=== PATIENT | male | born 1955 | race Caucasian/White ===

== ENCOUNTER 2017-10-04 08:14 | Day surgery (SDC) | payer BC ==
[~2017-10-04 08:14] MED LIST: Lactated Ringers 1,000 ML IV SCH; Lidocaine 1%/Sod Bicarbonate in NS 8.4% 1 ML Syringe IV PRN; Sodium Chloride 0.9% 10 ML Syringe FLUSH PRN
--- NOTE | 2017-10-04 08:46 | PCM.PREANE ---
Preanesthetic Assessment - Anesthesia/Transfusion/Family Hx Anesthesia History: Prior Anesthesia Without Reaction Family History of Anesthesia Reaction: No Transfusion History: Prior Transfusion Without Reaction - Review of Systems General: No Symptoms Pulmonary: No Symptoms Cardiovascular: No Symptoms Gastrointestinal: No Symptoms Neurological: Numbness (left hand at night) Other: Reports: Easy Bleeding, Easy Bruising - Physical Assessment NPO Status Date: 10/02/17 NPO Status Time: 00:00 Pulse: 68 O2 Sat by Pulse Oximetry: 95 Respiratory Rate: 16 Blood Pressure: 138/76 Temperature: 36.6 C Height: 1.73 m Weight: 99.337 kg ASA Class: 3 Mental Status: Alert & Oriented x3 Dentition: Reports: Bridge (top) Thyro-Mental Finger Breadths: 3 Mouth Opening Finger Breadths: 3 ROM/Head Extension: Full Lungs: Clear to Auscultation, Normal Respiratory Effort Cardiovascular: Regular Rate, Regular Rhythm, No Murmurs - Allergies Allergies/Adverse Reactions: Allergies Allergy/AdvReac Type Severity Reaction Status Date / Time atorvastatin [From Lipitor] Allergy Cannot Verified 10/01/17 10:51 Remember pravastatin Allergy Cannot Verified 10/01/17 10:51 Remember rosuvastatin [From Crestor] Allergy Cannot Verified 10/01/17 10:51 Remember - Blood Blood Available: No Product(s) Available: None - Anesthesia Plan Pre-Op Medication Ordered: Beta Anibal Beta Anibal: Metoprolol Med Last Dose Date: 10/04/17 Med Last Dose Time: 00:00 - Acknowledgements Anesthesia Type Planned: MAC Pt an Appropriate Candidate for the Planned Anesthesia: Yes Alternatives and Risks of Anesthesia Discussed w Pt/Guardian: Yes Pt/Guardian Understands and Agrees with Anesthesia Plan: Yes PreAnesthesia Questionnaire HEENT History: Reports: Impaired Vision Cardiovascular History: Reports: CAD, High Cholesterol, Hypertension, [place], Other (See Below) Other Cardiovascular History: heart valve replacement, artherosclerotic heart disease, aortic valve stenosis, palpitations, peripheral artery disease Respiratory History: Reports: None Gastrointestinal History: Reports: Other (See Below) Other Gastrointestinal History: heartburn, reflux Genitourinary History: Reports: None 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 Musculoskeletal History: Reports: Arthritis Neurological History: Reports: Other (See Below) Other Neuro History: paresthesias Psychiatric History: Reports: None Endocrine/Metabolic History: Reports: Other (See Below) Other Endocrine/Metabolic History: hyperglycemia Hematologic History: Reports: None Immunologic History: Reports: None Oncologic (Cancer) History: Reports: None Dermatologic History: Reports: None - Past Surgical History Head Surgeries/Procedures: Reports: None Cardiovascular Surgical History: Reports: Coronary Artery Bypass, Other (See Below) Other Cardiovascular Surgeries/Procedures: bovine heart valve replacement, CABG x4, stents, sternotomy redo Respiratory Surgical History: Reports: None GI Surgical History: Reports: Colonoscopy Female Surgical History: Reports: None Male Surgical History: Reports: None Endocrine Surgical History: Reports: None Neurological Surgical History: Reports: None Musculoskeletal Surgical History: Reports: None Oncologic Surgical History: Reports: None Dermatological Surgical History: Reports: None - SUBSTANCE USE Smoking Status *Q: Former Smoker Tobacco Use Within Last Twelve Months: No Second Hand Smoke Exposure: No Days Per Week of Alcohol Use: 0 Number of Drinks Per Day: 0 Total Drinks Per Week: 0 Recreational Drug Use History: No - HOME MEDS Home Medications: Home Meds Aspirin 81 mg PO DAILY 10/01/17 [History] Ca Carbonate/Vitamin D3/Vit K [Calcium + D Soft Chewable Tab] 1 tab PO DAILY [History] Clopidogrel Bisulfate [Clopidogrel] 75 mg PO DAILY 10/01/17 [History] Fish Oil/[place]-3 Fatty Acids [Fish Oil 1,000 MG] 2 gm PO DAILY 10/01/17 [History ] Folic Acid [Folic Acid] 1 mg PO DAILY 10/01/17 [History] Garlic 1,000 mg PO DAILY 10/01/17 [History] Gluc 2KCl/Chondr/[place] Hy/Hy Ac [Glucosamine & Chondroitin Cap] 1 cap PO DAILY [History] Lisinopril [Lisinopril] 2.5 mg PO DAILY 10/01/17 [History] Metoprolol Tartrate [Metoprolol Tartrate] 50 mg PO BID 10/01/17 [History] Nitroglycerin [Nitrostat] 0.4 mg SL Q5M PRN 10/01/17 [History] Pantoprazole Sodium [Protonix] 40 mg PO DAILY 10/01/17 [History] Simvastatin [Zocor] 20 mg PO DAILY 10/01/17 [History] diphenhydrAMINE [Benadryl] 25 mg PO DAILY 10/01/17 [History] - CURRENT (IN HOUSE) MEDS Current Meds: Current Medications Lactated Ringer's (Ringers, Lactated) 1,000 mls @ 125 mls/hr IV ASDIRECTED IRA Stop: 10/04/17 23:00 Lidocaine/Sodium Bicarbonate (Buffered Lidocaine 1% In Ns 8.4%) 0.25 ml IV ONETIME PRN PRN Reason: Prior to IV Start Stop: 10/04/17 18:00 Sodium Chloride (Saline Flush) 10 ml FLUSH ASDIRECTED PRN PRN Reason: Keep Vein Open Stop: 10/04/17 18:00
[2017-10-04] MEDS ORDERED: Metoprolol Tartrate 5 MG/5 ML SDV ONE (09:11)
[2017-10-04] MEDS ORDERED: Propofol 200 MG/20 ML SDV ONE ×3 (09:35→10:52)
[2017-10-04] MEDS ORDERED: Lidocaine 1% 4 ML ONE (09:36)
[2017-10-04] MEDS ORDERED: fentaNYL 100 MCG/2 ML SDV ONE (09:36)
[2017-10-04] MEDS ORDERED: Ondansetron 4 MG/2 ML SDV IVPUSH PRN (10:33)
--- NOTE | 2017-10-04 11:03 | PCM.OPNOTE ---
- General Post-Op/Procedure Note Date of Surgery/Procedure: 10/04/17 Operative Procedure(s): colonosocopy to cecum with polypectomy and EGD with BX Pre Op Diagnosis: GERD and screening colonosocopy family hx of colon cancer Post-Op Diagnosis: Same Anesthesia Technique: MAC Primary Surgeon: Camden Arnett EBL in mLs: 0 Complications: None Condition: Good
--- NOTE | 2017-10-04 11:09 | PCM48HPAN ---
Post Anesthesia Note - EVALUATION WITHIN 48HRS OF ANESTHETIC Vital Signs in Normal Range: Yes Patient Participated in Evaluation: Yes Respiratory Function Stable: Yes Airway Patent: Yes Cardiovascular Function Stable: Yes Hydration Status Stable: Yes Pain Control Satisfactory: Yes Nausea and Vomiting Control Satisfactory: Yes Mental Status Recovered: Yes
--- NOTE | 2017-10-05 11:34 | OR ---
DATE OF OPERATION: 10/04/2017 SURGEON: Camden Arnett MD PREOPERATIVE DIAGNOSIS: Screening colonoscopy, family history. POSTOPERATIVE DIAGNOSIS: Screening colonoscopy OPERATION PERFORMED: Colonoscopy to cecum with removal of polyp at 40 cm of sigmoid colon. FINDINGS: Colonoscopy to the ileocecal valve with limited view of the cecum. ANESTHESIA: Done under IV sedation. DESCRIPTION OF PROCEDURE: The patient was taken to the endoscopy room, had been connected to the monitoring equipment, given IV sedation for upper GI endoscopy. The IV sedation was continued for colonoscopy. He was placed in left lateral position. Perianal area showed some external hemorrhoids. Rectal exam showed good sphincter tone. A video Olympus colonoscope was then introduced into the rectum and threaded up without problem to the ileocecal valve. I was unable to advance further into the cecum. A portion of the cecum was seen. Prep was excellent. [place] cleansing score grade A and the scope was slowly withdrawn showing the cecum, ascending colon, transverse colon, descending colon, sigmoid colon, and rectum. Our lesion had appeared to be a polyp or a hyperplastic polyp, uncertain, was identified, this was lassoed with cautery snare, it was located at 40 cm in the sigmoid colon, removed with cautery snare, retrieved, and sent to pathology. I did not see any angiodysplasias, large tumor masses, ulcerations, diverticulum. Some mild internal hemorrhoids were noted. The patient tolerated the procedure and sent to recovery room in a stable condition. He will be followed up in the clinic. ESTIMATED BLOOD LOSS: MMODAL /[id number]
--- NOTE | 2017-10-05 11:34 | OR ---
DATE OF OPERATION: 10/04/2017 SURGEON: Camden Arnett MD PREOPERATIVE DIAGNOSIS: Gastroesophageal reflux unresponsive to proton pump inhibitors. POSTOPERATIVE DIAGNOSIS: Gastroesophageal reflux unresponsive to proton pump inhibitors. OPERATION PERFORMED: Esophagogastroduodenoscopy with biopsy. FINDINGS: Some erythema and edema in the duodenal bulb. Antrum, body and fundus were unremarkable. Around the cardia, showed some edema. This area was also biopsied. The GE junction showed a small sliding hiatal hernia with GE junction located at 38 cm with some irregularity and swelling there. This was also biopsied. The rest of the esophagus and second portion of the duodenum were normal. ANESTHESIA: Done under IV sedation. DESCRIPTION OF PROCEDURE: The patient was taken to the endoscopy room, placed in a supine position, connected to monitoring equipment, and given IV sedation. A bite block was inserted and placed on the left side. The video Olympus gastroscope was placed in the posterior oropharynx, under direct vision, threaded past the cricopharyngeus, down the esophagus, and into the stomach. The stomach was insufflated, and the scope passed through the pylorus to the second portion of the duodenum. Second portion of the duodenum was unremarkable, but the duodenal bulb showed what appeared to be duodenitis, and this was biopsied. The scope was withdrawn to the antrum and pyloric channel, which were unremarkable. Body was viewed as normal. The fundus was seen and was unremarkable. Around the cardia, there was some edema and this was biopsied. The scope was withdrawn to the GE junction, which then again showed swelling and edema, and this was biopsied at the GE junction. Rest of the esophagus was viewed as the scope was withdrawn was normal. The patient tolerated the procedure. Specimen sent to pathology in a labeled container. IV sedation was continued for colonoscopy. ESTIMATED BLOOD LOSS: MMODAL /[id number]
== END 2017-10-04 11:33 | disposition home or self-care (01) ==
LOC: JD.SDS 08:14
PROVIDERS: ATTEND Surgery
DX: Z12.11 Encounter for screening for malignant neoplasm of colon (principal); K63.5 Polyp of colon; K20.9 Esophagitis, unspecified; K29.50 Unspecified chronic gastritis without bleeding; K44.9 Diaphragmatic hernia without obstruction or gangrene; K64.8 Other hemorrhoids; I10 Essential (primary) hypertension; K21.9 Gastro-esophageal reflux disease without esophagitis; I73.9 Peripheral vascular disease, unspecified; Z88.8 Allergy status to other drugs, medicaments and biological substances; Z80.0 Family history of malignant neoplasm of digestive organs; I25.10 Atherosclerotic heart disease of native coronary artery without angina pectoris; Z95.5 Presence of coronary angioplasty implant and graft; Z87.891 Personal history of nicotine dependence; Z95.2 Presence of prosthetic heart valve; Z79.82 Long term (current) use of aspirin; Z79.899 Other long term (current) drug therapy
CPT/HCPCS: 43239; 45385; J3010; J7120; 00813; J2704; J3490

== ENCOUNTER 2019-12-11 09:43 | Inpatient (IN) | payer MEDICARE, BC, OTHER ==
[2019-12-11] MEDS ORDERED: Sodium Chloride 0.9% 10 ML Syringe FLUSH PRN (09:58)
--- NOTE | 2019-12-11 10:22 | EDM.PDOC ---
ED HPI GENERAL MEDICAL PROBLEM - General Chief Complaint: Respiratory Problem Stated Complaint: COVID +/SOB Time Seen by Provider: 12/11/19 09:50 Source of Information: Reports: Patient, Family, Provider (Dr Tolliver), RN Notes Reviewed - History of Present Illness INITIAL COMMENTS - FREE TEXT/NARRATIVE: 64 year old male that first became ill over 9 days ago with "cold sx. He started becoming more ill about 12 to 14 days ago. He started becoming more ill about 10 days ago, November 30, was seen at [facility], found to have probable lingular pnemonia, sent home on zithromax. Than last week he started having more severe cough, fever, chills, soaking night sweats. She went to [facility] today because of not getting better, found to have low sats of 79 to 80 % at the clinic. Transferred here for concern of covid pneumonia with associated hypoxia. He states he has lost 16 to 18 lbs in the last 12 days. He has hx of CABG about 16 year ago and than repeat open heart surgery about 6 yrs ago and "had aortic valve replacement" at that time. He has chest pain with coughing. He has not felt severely short of breath. Upper Chest Pain Score (Numeric/FACES): 3 - Related Data Allergies Allergy/AdvReac Type Severity Reaction Status Date / Time atorvastatin [From Lipitor] Allergy Cannot Verified 12/11/19 09:52 Remember pravastatin Allergy Cannot Verified 12/11/19 09:52 Remember rosuvastatin [From Crestor] Allergy Cannot Verified 12/11/19 09:52 Remember Home Meds: Home Meds Aspirin 81 mg PO DAILY 10/01/17 [History] Calcium Carb/Vitamin D3/Vit K1 [Calcium + D Soft Chewable Tab] 1 tab PO DAILY [History] Clopidogrel Bisulfate [Clopidogrel] 75 mg PO DAILY 10/01/17 [History] Fish Oil/[place]-3 Fatty Acids [Fish Oil 1,000 MG] 2 gm PO DAILY 10/01/17 [History ] Folic Acid 1 mg PO DAILY 10/01/17 [History] Garlic 1,000 mg PO DAILY 10/01/17 [History] Glucosam/Chondr/Collagn/Hyalur [Glucosamine & Chondroitin Cap] 1 cap PO DAILY [History] Lisinopril 2.5 mg PO DAILY 10/01/17 [History] Pantoprazole Sodium [Protonix] 40 mg PO DAILY 10/01/17 [History] Simvastatin [Zocor] 20 mg PO DAILY 10/01/17 [History] diphenhydrAMINE [Benadryl] 25 mg PO DAILY 10/01/17 [History] Ezetimibe 10 mg PO DAILY 12/11/19 [History] Past Medical History HEENT History: Reports: Impaired Vision Cardiovascular History: Reports: CAD, High Cholesterol, Hypertension, [place], Other (See Below) Other Cardiovascular History: heart valve replacement, artherosclerotic heart disease, aortic valve stenosis, palpitations, peripheral artery disease Respiratory History: Reports: None Gastrointestinal History: Reports: Other (See Below) Other Gastrointestinal History: heartburn, reflux Genitourinary History: Reports: None 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 Musculoskeletal History: Reports: Arthritis Neurological History: Reports: Other (See Below) Other Neuro History: paresthesias Psychiatric History: Reports: None Endocrine/Metabolic History: Reports: Other (See Below) Other Endocrine/Metabolic History: hyperglycemia Hematologic History: Reports: None Immunologic History: Reports: None Oncologic (Cancer) History: Reports: None Dermatologic History: Reports: None - Past Surgical History Head Surgeries/Procedures: Reports: None Cardiovascular Surgical History: Reports: Coronary Artery Bypass, Other (See Below) Other Cardiovascular Surgeries/Procedures: bovine heart valve replacement, CABG x4, stents, sternotomy redo Respiratory Surgical History: Reports: None GI Surgical History: Reports: Colonoscopy Female Surgical History: Reports: None Male Surgical History: Reports: None Endocrine Surgical History: Reports: None Neurological Surgical History: Reports: None Musculoskeletal Surgical History: Reports: None Oncologic Surgical History: Reports: None Dermatological Surgical History: Reports: None Social & Family History - Caffeine Use Caffeine Use: Reports: Coffee ED ROS GENERAL - Review of Systems Review Of Systems: See Below Constitutional: Reports: Fever, Chills HEENT: Reports: Rhinitis (mild), Throat Pain (mild) Respiratory: Reports: Shortness of Breath, Cough, Sputum. Denies: Wheezing Cardiovascular: Reports: Chest Pain (with coughing) GI/Abdominal: Reports: Diarrhea, Decreased Appetite. Denies: Abdominal Pain Musculoskeletal: Reports: No Symptoms Skin: Reports: No Symptoms Neurological: Reports: Dizziness, Weakness (generalized) ED EXAM, GENERAL - Physical Exam Exam: See Below General Appearance: Alert, No Apparent Distress (at time of my exam on oxygen) Eye Exam: Bilateral Eye: PERRL Throat/Mouth: Normal Inspection Head: Atraumatic Neck: Supple Respiratory/Chest: No Respiratory Distress, Lungs Clear, Normal Breath Sounds, Rhonchi (mild bilat ronchi), Other (coarse BS bilat) Cardiovascular: Regular Rate, Rhythm GI/Abdominal: Soft, Non-Tender Extremities: Normal Inspection, Normal Range of Motion. No: Leg Pain, Redness Neurological: Alert, Oriented, No Motor/Sensory Deficits Skin Exam: Warm, Dry, Normal Color EKG INTERPRETATION EKG Date: 12/11/19 Rhythm: NSR P-Wave: Present QRS: Other (q waves V1 and AVL) ST-T: Other (mild nonspecific changes) Course - Vital Signs Last Recorded V/S: Last Vital Signs Temp 101.3 F H 12/11/19 12:42 Pulse 86 12/11/19 09:53 Resp 28 H 12/11/19 09:53 BP 132/65 12/11/19 09:53 Pulse Ox 86 L 12/11/19 09:53 - Orders/Labs/Meds Orders: Active Orders 24 hr Category Date Time Status Admission Status [Patient Status] [ADT] Routine ADT 12/11/19 11:49 Active EKG 12 Lead [EKG Documentation Completion] [RC] STAT Care 12/11/19 09:57 Active Peripheral IV Care [RC] . DIRECTED Care 12/11/19 09:58 Active CULTURE BLOOD [BC] Stat Lab 12/11/19 10:25 Received Sodium Chloride 0.9% [Saline Flush] Med 12/11/19 09:58 Active 10 ml FLUSH ASDIRECTED PRN Peripheral IV Insertion Adult [OM.PC] Stat Oth 12/11/19 09:58 Ordered Medication Orders Acetaminophen (Tylenol) 650 mg PO Q4H PRN PRN Reason: Pain (Mild 1-3)/fever Albuterol (Proventil Hfa) 0 gm INH Q4H PRN PRN Reason: SOB/Wheezing Sodium Chloride (Normal Saline) 1,000 mls @ 75 mls/hr IV ASDIRECTED IRA Sodium Chloride (Saline Flush) 10 ml FLUSH ASDIRECTED PRN PRN Reason: Keep Vein Open Last Admin: 12/11/19 10:35 Dose: 10 ml Labs: Laboratory Tests 12/11/19 12/11/19 12/11/19 Range/Units 10:25 10:25 10:25 WBC 7.00 (4.23-9.07) K/mm3 RBC 3.90 L (4.63-6.08) M/mm3 Hgb 12.0 L (13.7-17.5) gm/dl Hct 36.2 L (40.1-51.0) % MCV 92.8 H (79.0-92.2) fl MCH 30.8 (25.7-32.2) pg MCHC 33.1 (32.2-35.5) g/dl RDW Std Deviation 43.4 (35.1-43.9) fL Plt Count 186 (163-337) K/mm3 MPV 9.9 (9.4-12.3) fl Neut % (Auto) 88.8 H (34.0-67.9) % Lymph % (Auto) 6.7 L (21.8-53.1) % [place] % (Auto) 3.7 L (5.3-12.2) % Eos % (Auto) 0.1 L (0.8-7.0) Baso % (Auto) 0.1 (0.1-1.2) % Neut # (Auto) 6.21 H (1.78-5.38) K/mm3 Lymph # (Auto) 0.47 L (1.32-3.57) K/mm3 [place] # (Auto) 0.26 L (0.30-0.82) K/mm3 Eos # (Auto) 0.01 L (0.04-0.54) K/mm3 Baso # (Auto) 0.01 (0.01-0.08) K/mm3 Manual Slide Review Abnormal smear Sodium 134 L (136-145) mEq/L Potassium 4.5 (3.5-5.1) mEq/L Chloride 99 (98-107) mEq/L Carbon Dioxide 23 (21-32) mEq/L Anion Gap 16.5 H (5-15) BUN 14 (7-18) mg/dL Creatinine 1.0 (0.7-1.3) mg/dL Est Cr Clr Drug Dosing 73.65 mL/min Estimated GFR (MDRD) > 60 (>60) mL/min BUN/Creatinine Ratio 14.0 (14-18) Glucose 119 H (80-115) mg/dL Lactic Acid (0.4-2.0) mmol/L Calcium 8.5 (8.5-10.1) mg/dL Ferritin (26-388) ng/ml Total Bilirubin 0.8 (0.2-1.0) mg/dL AST 50 H (15-37) U/L ALT 27 (16-63) U/L Alkaline Phosphatase 53 (46-116) U/L Lactate Dehydrogenase (85-227) U/L C-Reactive Protein 10.3 H* (<1.0) mg/dL Total Protein 7.4 (6.4-8.2) g/dl Albumin 3.2 L (3.4-5.0) g/dl Globulin 4.2 gm/dL Albumin/Globulin Ratio 0.8 L (1-2) 12/11/19 12/11/19 12/11/19 Range/Units 10:25 10:25 10:25 WBC (4.23-9.07) K/mm3 RBC (4.63-6.08) M/mm3 Hgb (13.7-17.5) gm/dl Hct (40.1-51.0) % MCV (79.0-92.2) fl MCH (25.7-32.2) pg MCHC (32.2-35.5) g/dl RDW Std Deviation (35.1-43.9) fL Plt Count (163-337) K/mm3 MPV (9.4-12.3) fl Neut % (Auto) (34.0-67.9) % Lymph % (Auto) (21.8-53.1) % [place] % (Auto) (5.3-12.2) % Eos % (Auto) (0.8-7.0) Baso % (Auto) (0.1-1.2) % Neut # (Auto) (1.78-5.38) K/mm3 Lymph # (Auto) (1.32-3.57) K/mm3 [place] # (Auto) (0.30-0.82) K/mm3 Eos # (Auto) (0.04-0.54) K/mm3 Baso # (Auto) (0.01-0.08) K/mm3 Manual Slide Review Sodium (136-145) mEq/L Potassium (3.5-5.1) mEq/L Chloride (98-107) mEq/L Carbon Dioxide (21-32) mEq/L Anion Gap (5-15) BUN (7-18) mg/dL Creatinine (0.7-1.3) mg/dL Est Cr Clr Drug Dosing mL/min Estimated GFR (MDRD) (>60) mL/min BUN/Creatinine Ratio (14-18) Glucose (80-115) mg/dL Lactic Acid 1.8 (0.4-2.0) mmol/L Calcium (8.5-10.1) mg/dL Ferritin 2719 H (26-388) ng/ml Total Bilirubin (0.2-1.0) mg/dL AST (15-37) U/L ALT (16-63) U/L Alkaline Phosphatase (46-116) U/L Lactate Dehydrogenase 796 H (85-227) U/L C-Reactive Protein (<1.0) mg/dL Total Protein (6.4-8.2) g/dl Albumin (3.4-5.0) g/dl Globulin gm/dL Albumin/Globulin Ratio (1-2) Meds: Medications Generic Name Dose Route Start Last Admin Trade Name Freq PRN Reason Stop Dose Admin Acetaminophen 650 mg 12/11/19 12:42 Tylenol PO Q4H PRN Pain (Mild 1-3)/fever Albuterol 0 gm 12/11/19 12:44 Proventil Hfa INH Q4H PRN SOB/Wheezing Sodium Chloride 1,000 mls @ 75 mls/hr 12/11/19 12:45 Normal Saline IV ASDIRECTED IRA Sodium Chloride 10 ml 12/11/19 09:58 12/11/19 10:35 Saline Flush FLUSH 10 ml ASDIRECTED PRN Administration Keep Vein Open Discontinued Medications Generic Name Dose Route Start Last Admin Trade Name Freq PRN Reason Stop Dose Admin Acetaminophen 975 mg 12/11/19 10:29 12/11/19 10:35 Tylenol PO 12/11/19 10:30 975 mg NOW ONE Administration - Re-Assessments/Exams Free Text/Narrative Re-Assessment/Exam: 12/11/19 13:[address] 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 His labs with elevated CRP, ferritin, LDH, normal WBC with lymphopenia, bilat infiltrates on CXR are quite classic for what has been reported for patients with Covid pneumonia. His sats are running 93 to 94 on 3 liters NC. He was swabbed at [facility] just before coming over. He and his want to be admitted here in n. He will be admitted for further treatment, primarily oxygenation and watch carefully for decompensation. Departure - Departure Time of Disposition: 13:07 Disposition: Home, Self-Care 01 Condition: Fair Clinical Impression: Pneumonia due to 2019 novel coronavirus, Hypoxia - Discharge Information Sepsis Event Note - Evaluation Sepsis Screening Result: Possible Sepsis Risk - Focused Exam Vital Signs: Vital Signs Temp Temp Pulse Resp BP Pulse Ox 12/11/19 10:35 101.3 F H 12/11/19 10:26 101.3 F H 12/11/19 09:53 99.4 F 86 28 H 132/65 86 L Date Exam was Performed: 12/11/19 Time Exam was Performed: 12:51 ED Communication - Discussed Case With (1) Discussed Case With (1): Admitting Provider (Dr Araiza, decision to admit at about 11:40) - My Orders Last 24 Hours: My Active Orders 12/11/19 09:57 EKG 12 Lead [EKG Documentation Completion] [RC] STAT 12/11/19 09:58 Peripheral IV Care [RC] . DIRECTED Sodium Chloride 0.9% [Saline Flush] 10 ml FLUSH ASDIRECTED PRN Peripheral IV Insertion Adult [OM.PC] Stat 12/11/19 10:25 CULTURE BLOOD [BC] Stat 12/11/19 11:49 Admission Status [Patient Status] [ADT] Routine - Assessment/Plan Last 24 Hours: My Active Orders 12/11/19 09:57 EKG 12 Lead [EKG Documentation Completion] [RC] STAT 12/11/19 09:58 Peripheral IV Care [RC] . DIRECTED Sodium Chloride 0.9% [Saline Flush] 10 ml FLUSH ASDIRECTED PRN Peripheral IV Insertion Adult [OM.PC] Stat 12/11/19 10:25 CULTURE BLOOD [BC] Stat 12/11/19 11:49 Admission Status [Patient Status] [ADT] Routine
[2019-12-11] MEDS ORDERED: Acetaminophen 325 MG Tab PO ONE (10:29)
--- NOTE | 2019-12-11 10:56 | CR ---
Chest: Portable view of the chest was obtained. Comparison: Prior chest CT of 05/12/12. Patchy areas of increased density are noted throughout both sides of the chest. Heart is enlarged. Prior sternotomy is noted. Impression: 1. Increased density within both sides of the chest. Some of this could represent pulmonary vascular congestion but multifocal pneumonia is also suspected which could be either bacterial or viral in etiology. Diagnostic code #3 This report was dictated in MDT
--- NOTE | 2019-12-11 11:49 | PCM.HP.2 ---
H&P History of Present Illness - General Date of Service: 12/11/19 Source of Information: Patient, Old Records, Provider, RN, RN Notes Reviewed History Limitations: Reports: No Limitations - History of Present Illness Initial Comments - Free Text/Narative: Niko Bauman is a 64-year-old male patient who presented to ED at the advice of his primary care provider. He states that between 12 to 14 days prior he developed cold-like symptoms and on November 30 was seen at the [facility] with probable lingular pneumonia. He was started on azithromycin and sent home. Last week he began to have more fever, chills, cough, and night sweats. He went to the clinic was found to have oxygen saturations of 79 to 80%. He is also had diarrhea, although he states that this started when he started taking his antibiotic. He states he is lost 16 to 18 pounds in the last 12 days. In the ED he was noted to be febrile with a temp of 101.3, pulse of 86, respirations of 28, blood pressure 132/65. Pulse ox was 86%. EKG is obtained and shows a sinus rhythm with Q waves in V1 and aVL. Chest x-ray is obtained interpreted by Dr. Macias as "1 increased density within both sides of the chest. Some of this could represent pulmonary vascular congestion but multifocal pneumonia is also suspected which could be either bacterial or viral in etiology." Labs were obtained with a normal white count of 7.0. Hemoglobin is 12. Hematocrit 36.2. Platelets are 186. Neutrophils are elevated at 88.8% . Sodium is low at 134. Potassium 4.5. Carbon oxide 23. Gap is high at 16.5. BUN is 14, creatinine 1.0, GFR is greater than 60. Glucose is 119. Calcium is 8.5. AST is 50, ALT is 27, alkaline phosphatase is 53. CRP is elevated at 10.3. Protein is 7.4. Albumin is 3.2. Lactic acid is 1.8. Ferritin is very high at 2719, LDH is very high at 796. He is given Tylenol for fever. COVID test was performed at [facility] prior to coming to the ED. He carries a history of CAD, HLD, hypertension, ME, aortic bovine valve replacement, palpitations, peripheral artery disease, heartburn, arthritis, hyperglycemia, CABG x1, cardiac stenting x4. He is a full code. His PCP is Dr. Tolliver. He subsequently admitted for management of his failed outpatient treatment pneumonia suspected COVID infection. Upper Chest Pain Score (Numeric/FACES): 3 - Related Data Allergies/Adverse Reactions: Allergies Allergy/AdvReac Type Severity Reaction Status Date / Time atorvastatin [From Lipitor] Allergy Cannot Verified 12/11/19 09:52 Remember pravastatin Allergy Cannot Verified 12/11/19 09:52 Remember rosuvastatin [From Crestor] Allergy Cannot Verified 12/11/19 09:52 Remember Home Medications: Home Meds Aspirin 81 mg PO DAILY 10/01/17 [History] Calcium Carb/Vitamin D3/Vit K1 [Calcium + D Soft Chewable Tab] 1 tab PO DAILY [History] Clopidogrel Bisulfate [Clopidogrel] 75 mg PO DAILY 10/01/17 [History] Fish Oil/Edmond-3 Fatty Acids [Fish Oil 1,000 MG] 2 gm PO DAILY 10/01/17 [History ] Folic Acid 1 mg PO DAILY 10/01/17 [History] Garlic 1,000 mg PO DAILY 10/01/17 [History] Glucosam/Chondr/Collagn/Hyalur [Glucosamine & Chondroitin Cap] 1 cap PO DAILY [History] Lisinopril 2.5 mg PO DAILY 10/01/17 [History] Pantoprazole Sodium [Protonix] 40 mg PO DAILY 10/01/17 [History] Simvastatin [Zocor] 20 mg PO DAILY 10/01/17 [History] diphenhydrAMINE [Benadryl] 25 mg PO DAILY 10/01/17 [History] Ezetimibe 10 mg PO DAILY 12/11/19 [History] Past Medical History HEENT History: Reports: Impaired Vision Cardiovascular History: Reports: CAD, High Cholesterol, Hypertension, ME, Other (See Below) Other Cardiovascular History: heart valve replacement, artherosclerotic heart disease, aortic valve stenosis, palpitations, peripheral artery disease Respiratory History: Reports: None Gastrointestinal History: Reports: Other (See Below) Other Gastrointestinal History: heartburn, reflux Genitourinary History: Reports: None ELECTRICIAN CHIEF History: Reports: None Musculoskeletal History: Reports: Arthritis Neurological History: Reports: Other (See Below) Other Neuro History: paresthesias Psychiatric History: Reports: None Endocrine/Metabolic History: Reports: Other (See Below) Other Endocrine/Metabolic History: hyperglycemia Hematologic History: Reports: None Immunologic History: Reports: None Oncologic (Cancer) History: Reports: None Dermatologic History: Reports: None - Past Surgical History Head Surgeries/Procedures: Reports: None Cardiovascular Surgical History: Reports: Coronary Artery Bypass, Other (See Below) Other Cardiovascular Surgeries/Procedures: bovine heart valve replacement, CABG x4, stents, sternotomy redo Respiratory Surgical History: Reports: None GI Surgical History: Reports: Colonoscopy Female Surgical History: Reports: None Male Surgical History: Reports: None Endocrine Surgical History: Reports: None Neurological Surgical History: Reports: None Musculoskeletal Surgical History: Reports: None Oncologic Surgical History: Reports: None Dermatological Surgical History: Reports: None Social & Family History - Tobacco Use Smoking Status *Q: Former Smoker Used Tobacco, but Quit: Yes Month/Year Tobacco Last Used: 20 years ago - Caffeine Use Caffeine Use: Reports: Coffee - Recreational Drug Use Recreational Drug Use: No H&P Review of Systems - Review of Systems: Review Of Systems: See Below General: Reports: Fever, Chills, Malaise, Weakness, Fatigue, Decreased Appetite , Weight Loss (2/2 diarrhea ) HEENT: Reports: No Symptoms. Denies: Headaches, Sore Throat Pulmonary: Reports: Shortness of Breath, Pleuritic Chest Pain, Cough, Sputum. Denies: Wheezing Cardiovascular: Reports: Dyspnea on Exertion, Lightheadedness. Denies: Chest Pain, Palpitations Gastrointestinal: Reports: Diarrhea. Denies: Abdominal Pain, Black Stool, Bloody Stool, Constipation, Nausea, Vomiting Genitourinary: Reports: No Symptoms. Denies: Pain Musculoskeletal: Reports: Muscle Stiffness Skin: Reports: No Symptoms. Denies: Cyanosis Psychiatric: Reports: No Symptoms. Denies: Confusion Neurological: Reports: Weakness Hematologic/Lymphatic: Reports: No Symptoms. Denies: Anemia Immunologic: Reports: No Symptoms Exam - Exam Exam: See Below - Vital Signs Vital Signs: Last Vital Signs Temp 101.3 F H 12/11/19 10:35 Pulse 86 12/11/19 09:53 Resp 28 H 12/11/19 09:53 BP 132/65 12/11/19 09:53 Pulse Ox 86 L 12/11/19 09:53 Weight: 216 lb - Exam Quality Assessment: Supplemental Oxygen, DVT Prophylaxis General: Alert, Oriented, Cooperative, Mild Distress HEENT: Conjunctiva Clear, Nares Patent Neck: Supple, Trachea Midline Lungs: Decreased Breath Sounds, Crackles (R>L), Rhonchi. No: Normal Respiratory Effort (Tachypnea ), Wheezing Cardiovascular: Regular Rhythm, Tachycardia, Other (PVCs) GI/Abdominal Exam: Normal Bowel Sounds, Soft, Non-Tender, No Distention (Male) Exam: Deferred Rectal (Males) Exam: Deferred Back Exam: Normal Inspection, Full Range of Motion Extremities: Normal Inspection, Normal Range of Motion, Non-Tender, No Pedal Edema, Normal Capillary Refill Peripheral Pulses: 4+: Radial (L), Radial (R), Dorsalis Pedis (L), Dorsalis Pedis (R) Skin: Warm, Intact, Moist Neurological: Cranial Nerves Intact (Grossly ) Psychiatric: Alert, Anxious - Patient Data Lab Results Last 24 hrs: Laboratory Results - last 24 hr 12/11/19 12/11/19 12/11/19 Range/Units 10:25 10:25 10:25 WBC 7.00 (4.23-9.07) K/mm3 RBC 3.90 L (4.63-6.08) M/mm3 Hgb 12.0 L (13.7-17.5) gm/dl Hct 36.2 L (40.1-51.0) % MCV 92.8 H (79.0-92.2) fl MCH 30.8 (25.7-32.2) pg MCHC 33.1 (32.2-35.5) g/dl RDW Std Deviation 43.4 (35.1-43.9) fL Plt Count 186 (163-337) K/mm3 MPV 9.9 (9.4-12.3) fl Neut % (Auto) 88.8 H (34.0-67.9) % Lymph % (Auto) 6.7 L (21.8-53.1) % [place] % (Auto) 3.7 L (5.3-12.2) % Eos % (Auto) 0.1 L (0.8-7.0) Baso % (Auto) 0.1 (0.1-1.2) % Neut # (Auto) 6.21 H (1.78-5.38) K/mm3 Lymph # (Auto) 0.47 L (1.32-3.57) K/mm3 [place] # (Auto) 0.26 L (0.30-0.82) K/mm3 Eos # (Auto) 0.01 L (0.04-0.54) K/mm3 Baso # (Auto) 0.01 (0.01-0.08) K/mm3 Manual Slide Review Abnormal smear Sodium 134 L (136-145) mEq/L Potassium 4.5 (3.5-5.1) mEq/L Chloride 99 (98-107) mEq/L Carbon Dioxide 23 (21-32) mEq/L Anion Gap 16.5 H (5-15) BUN 14 (7-18) mg/dL Creatinine 1.0 (0.7-1.3) mg/dL Est Cr Clr Drug Dosing 73.65 mL/min Estimated GFR (MDRD) > 60 (>60) mL/min BUN/Creatinine Ratio 14.0 (14-18) Glucose 119 H (80-115) mg/dL Lactic Acid (0.4-2.0) mmol/L Calcium 8.5 (8.5-10.1) mg/dL Ferritin (26-388) ng/ml Total Bilirubin 0.8 (0.2-1.0) mg/dL AST 50 H (15-37) U/L ALT 27 (16-63) U/L Alkaline Phosphatase 53 (46-116) U/L Lactate Dehydrogenase (85-227) U/L C-Reactive Protein 10.3 H* (<1.0) mg/dL Total Protein 7.4 (6.4-8.2) g/dl Albumin 3.2 L (3.4-5.0) g/dl Globulin 4.2 gm/dL Albumin/Globulin Ratio 0.8 L (1-2) 12/11/19 12/11/19 12/11/19 Range/Units 10:25 10:25 10:25 WBC (4.23-9.07) K/mm3 RBC (4.63-6.08) M/mm3 Hgb (13.7-17.5) gm/dl Hct (40.1-51.0) % MCV (79.0-92.2) fl MCH (25.7-32.2) pg MCHC (32.2-35.5) g/dl RDW Std Deviation (35.1-43.9) fL Plt Count (163-337) K/mm3 MPV (9.4-12.3) fl Neut % (Auto) (34.0-67.9) % Lymph % (Auto) (21.8-53.1) % [place] % (Auto) (5.3-12.2) % Eos % (Auto) (0.8-7.0) Baso % (Auto) (0.1-1.2) % Neut # (Auto) (1.78-5.38) K/mm3 Lymph # (Auto) (1.32-3.57) K/mm3 [place] # (Auto) (0.30-0.82) K/mm3 Eos # (Auto) (0.04-0.54) K/mm3 Baso # (Auto) (0.01-0.08) K/mm3 Manual Slide Review Sodium (136-145) mEq/L Potassium (3.5-5.1) mEq/L Chloride (98-107) mEq/L Carbon Dioxide (21-32) mEq/L Anion Gap (5-15) BUN (7-18) mg/dL Creatinine (0.7-1.3) mg/dL Est Cr Clr Drug Dosing mL/min Estimated GFR (MDRD) (>60) mL/min BUN/Creatinine Ratio (14-18) Glucose (80-115) mg/dL Lactic Acid 1.8 (0.4-2.0) mmol/L Calcium (8.5-10.1) mg/dL Ferritin 2719 H (26-388) ng/ml Total Bilirubin (0.2-1.0) mg/dL AST (15-37) U/L ALT (16-63) U/L Alkaline Phosphatase (46-116) U/L Lactate Dehydrogenase 796 H (85-227) U/L C-Reactive Protein (<1.0) mg/dL Total Protein (6.4-8.2) g/dl Albumin (3.4-5.0) g/dl Globulin gm/dL Albumin/Globulin Ratio (1-2) Result Diagrams: 12/11/19 10:25 12/11/19 10:25 Sepsis Event Note - Evaluation Sepsis Screening Result: Possible Sepsis Risk - Focused Exam Vital Signs: Vital Signs Temp Temp Pulse Resp BP Pulse Ox 12/11/19 10:35 101.3 F H 12/11/19 10:26 101.3 F H 12/11/19 09:53 99.4 F 86 28 H 132/65 86 L Date Exam was Performed: 12/11/19 Time Exam was Performed: 18:57 - Problem List (1) Acute respiratory distress SNOMED Code(s): 070758788 ICD Code: R06.03 - ACUTE RESPIRATORY DISTRESS Status: Acute Priority: High Current Visit: Yes (2) Intubation of airway performed without difficulty SNOMED Code(s): 285718938 ICD Code: Z78.9 - OTHER SPECIFIED HEALTH STATUS Status: Acute Priority: High Current Visit: Yes (3) S/P CABG x 1 SNOMED Code(s): 389687580, 253211067, 922292119 ICD Code: Z95.1 - PRESENCE OF AORTOCORONARY BYPASS GRAFT Status: Chronic Priority: Medium Current Visit: Yes (4) H/O heart artery stent SNOMED Code(s): 018104693, 656015430 ICD Code: Z95.5 - PRESENCE OF CORONARY ANGIOPLASTY IMPLANT AND GRAFT Status : Chronic Priority: Medium Current Visit: Yes (5) Hypoxia SNOMED Code(s): 693154851 ICD Code: R09.02 - HYPOXEMIA Status: Acute Priority: High Current Visit : Yes (6) Pneumonia due to 2019 novel coronavirus SNOMED Code(s): 125682247 ICD Code: J12.89 - OTHER VIRAL PNEUMONIA; B97.29 - OTH CORONAVIRUS THE CAUSE OF DISEASES CLASSD ELSWHR Status: Suspected Priority: High Current Visit: Yes (7) CAD (coronary artery disease) SNOMED Code(s): 34715963 ICD Code: I25.10 - ATHSCL HEART DISEASE OF [place] CORONARY ARTERY W/O ANG PCTRS Status: Chronic Priority: Medium Current Visit: No Qualifiers: Coronary Disease-Associated Artery/Lesion type: bypass graft [place] vs. transplanted heart: [place] heart Associated angina: angina presence unspecified Qualified Code(s): I25.810 - Atherosclerosis of coronary artery bypass graft(s) without angina pectoris (8) HLD (hyperlipidemia) SNOMED Code(s): 72257526 ICD Code: E78.5 - HYPERLIPIDEMIA, UNSPECIFIED Status: Chronic Priority: Low Current Visit: No Qualifiers: Hyperlipidemia type: unspecified Qualified Code(s): E78.5 - Hyperlipidemia , unspecified (9) HTN (hypertension) SNOMED Code(s): 58174709 ICD Code: I10 - ESSENTIAL (PRIMARY) HYPERTENSION Status: Chronic Priority : Low Current Visit: No Qualifiers: Hypertension type: unspecified Qualified Code(s): I10 - Essential (primary ) hypertension (10) History of ME (myocardial infarction) SNOMED Code(s): 654889215 ICD Code: I25.2 - OLD MYOCARDIAL INFARCTION Status: Chronic Priority: Low Current Visit: No (11) H/O aortic valve repair SNOMED Code(s): 187228256018377 ICD Code: Z98.890 - OTHER SPECIFIED POSTPROCEDURAL STATES; Z86.79 - PERSONAL HISTORY OF OTHER DISEASES OF THE CIRCULATORY SYSTEM Status: Chronic Priority : Medium Current Visit: No (12) PAD (peripheral artery disease) SNOMED Code(s): 752387273 ICD Code: I73.9 - PERIPHERAL VASCULAR DISEASE, UNSPECIFIED Status: Chronic Priority: Medium Current Visit: No (13) GERD (gastroesophageal reflux disease) SNOMED Code(s): 144458372 ICD Code: K21.9 - GASTRO-ESOPHAGEAL REFLUX DISEASE WITHOUT ESOPHAGITIS Status: Chronic Priority: Medium Current Visit: No Qualifiers: Esophagitis presence: esophagitis presence not specified Qualified Code(s) : K21.9 - Gastro-esophageal reflux disease without esophagitis (14) Arthritis SNOMED Code(s): 5495872 ICD Code: M19.90 - UNSPECIFIED OSTEOARTHRITIS, UNSPECIFIED SITE Status: Chronic Priority: Low Current Visit: No (15) Bilateral pulmonary infiltrates on chest x-ray SNOMED Code(s): 934403778, 682345697 ICD Code: R91.8 - OTHER NONSPECIFIC ABNORMAL FINDING OF LUNG FIELD Status: Acute Priority: High Current Visit: Yes (16) Diarrhea SNOMED Code(s): 46998253 ICD Code: R19.7 - DIARRHEA, UNSPECIFIED Status: Acute Priority: High Current Visit: Yes Qualifiers: Diarrhea type: unspecified type Qualified Code(s): R19.7 - Diarrhea, unspecified (17) Viral pneumonia SNOMED Code(s): 96129178 ICD Code: J12.9 - VIRAL PNEUMONIA, UNSPECIFIED Status: Suspected Priority : High Current Visit: Yes Problem List Initiated/Reviewed/Updated: Yes Orders Last 24hrs: Active Orders 24 hr Category Date Time Status EKG 12 Lead [EKG Documentation Completion] [RC] STAT Care 12/11/19 09:57 Active Peripheral IV Care [RC] . DIRECTED Care 12/11/19 09:58 Active CULTURE BLOOD [BC] Stat Lab 12/11/19 10:25 Received Sodium Chloride 0.9% [Saline Flush] Med 12/11/19 09:58 Active 10 ml FLUSH ASDIRECTED PRN Peripheral IV Insertion Adult [OM.PC] Stat Oth 12/11/19 09:58 Ordered Medication Orders Sodium Chloride (Saline Flush) 10 ml FLUSH ASDIRECTED PRN PRN Reason: Keep Vein Open Last Admin: 12/11/19 10:35 Dose: 10 ml Assessment/Plan Comment:: I/P: Acute: Multifocal PNA/Suspected COVID-19 infection -Reports symptoms for past 12-14 days -Seen at walk-in and started on azithromycin. -Reports cough, fever, chills, night sweats, diarrhea, weight loss -Sepsis screen: Unknown bacterial infection, Normal WBC, Tmax 101.3, HR WNL, RR 28, Lactic acid 1.8 -Started on Zosyn and azithromycin -Intubated -This is likely viral and not related to a bacterial infection -Saturations at clinic 70-80% -Temp 101.3 in ED -WBC 7.0, Platelets 186, CRP 10.3, [id number], LDH 796, Lactic acid 1.8 -ABG shows respiratory acidosis -Oxygen saturations in mid to upper 80's in ICU -Intubated 2/2 worsening reparatory status -Judicious use of IV fluids -Airborne isolation, Negative pressure room -COVID test obtained at [facility] on 12/11/19- obtain results once available -Repeat CXRs as needed -RT consult -Recommend prone position 17-18 hrs per day. Does not need to be continuous -NG tube in place -Vent management -Fentanyl/Versed/Vecuronium for sedation. -Central line placed Chronic: CAD HLD Hypertension [place] Aortic bovine valve replacement Palpitations Peripheral artery disease Heartburn Arthritis Hyperglycemia CABG x1 Cardiac stenting x4 Plan: Admit to ICU Review home medications Other orders as indicated above AM Labs as ordered Code status: Full code - confirmed with patient DVT prophylaxis: Lovenox PCP: Dr. Tolliver - Mortality Measure Prognosis:: Poor
[2019-12-11] MEDS ORDERED: Acetaminophen 325 MG Tab PO PRN (12:42)
[2019-12-11] MEDS ORDERED: Albuterol 6.7 GM Inhaler INH PRN (12:44)
[2019-12-11] MEDS ORDERED: Piperacillin/Tazobactam 4.5 GM in Sodium Chloride 0.9% 100 ML IV ONE ×2 (13:00→14:00)
[2019-12-11] MEDS ORDERED: Azithromycin 250 MG Tab PO SCH (13:00)
[2019-12-11] MEDS ORDERED: Levofloxacin/Dextrose 5%-Water 750 MG in Premix Bag 1 BAG IV SCH (13:30)
[2019-12-11] MEDS ORDERED: Etomidate 2 MG/ML 20 ML SDV IVPUSH ONE (15:00)
[2019-12-11] MEDS ORDERED: Succinylcholine 200 MG/10 ML MDV ONE (15:00)
[2019-12-11] MEDS ORDERED: Midazolam 1 MG/ML 5 ML SDV ONE (15:00)
[2019-12-11] MEDS ORDERED: Midazolam 50 MG in Sodium Chloride 0.9% 40 ML IV SCH (16:00)
[2019-12-11] MEDS: fentaNYL 2,500 MCG in Sodium Chloride 0.9% 200 ML IV SCH (16:00)
[2019-12-11] MEDS ORDERED: Midazolam 1 MG/ML 5 ML SDV IVPUSH ONE ×2 (16:34→16:36)
--- NOTE | 2019-12-11 16:34 | CR ---
Chest: Portable view of the chest was obtained. Comparison: Prior chest x-ray performed earlier on the same day (10:19 AM) Diffuse increased density throughout both sides of the chest. Tip of endotracheal tube is not well seen but felt to lie between the clavicles and jomar in satisfactory position. Nasogastric tube is seen with tip lying within the stomach. Heart is slightly enlarged. Tortuous thoracic aorta is seen. Prior sternotomy is noted. Impression: 1. Diffuse increased density throughout the chest which appears fairly stable from previous exam. 2. Satisfactory position of endotracheal tube and nasogastric tube are felt to be present. 3. Mild cardiomegaly. Diagnostic code #3 This report was dictated in MDT
--- NOTE | 2019-12-11 17:15 | PCM.PRNOTE ---
- Free Text/Narrative Note: Procedure: Endotracheal intubation Indication: Respiratory failure due to ARDS Following sedation with midazolam and etomidate, and paralysis with succinylcholine, the patient was intubated with an 8.0 OETT to 23 cm at the incisors using a Mac 3 blade. Vocal cords visualized, and tip of ETT seen passing the cord. Positive CO2 colorimetric change. Good bilateral breath sounds post-intubation. An OG tub was then placed per the patient's RN. Post- procedure PCXR ordered. Post-intubation portable chest x-ray reviewed. The tip of the ET tube is approximately 2 cm above the jomar. The OG tube is seen in the stomach via the esophagus. The cardiac silhouette is within normal limits. There are bilateral hazy infiltrates consistent with a viral pneumonia/developing ARDS. Pulmonary edema cannot be ruled out. No pleural effusions seen on this AP view. No pneumothorax. Formal read per the Radiologist pending.
[2019-12-11] MEDS: Vecuronium 10 MG in Sodium Chloride 0.9% 100 ML IV SCH ×2 (18:00→20:49)
[2019-12-11] MEDS ORDERED: Hydroxychloroquine 200 MG Tab NGTUBE ONE (18:15)
--- NOTE | 2019-12-11 18:42 | CR ---
Addendum: Left-sided central line is seen. Tip lies at the junction of the brachiocephalic and superior vena cava. --- Addendum1 above dictated on [12/11/2019 19:11] by [Bud Macias, Parth Riggs] --- --- Addendum1 above signed on [12/11/2019 19:11] by [Bud Macias Hilton J.] --- --- Original report below dictated on [12/11/2019 18:40] by [Bud Macias, Parth Riggs] --- --- Original report below signed on [12/11/2019 18:40] by [Bud Macias, Parth Riggs] --- Chest: Portable view of the chest was obtained. Comparison: Prior chest x-ray performed on the same day (4:01 PM). Diffuse parenchymal densities are seen. Heart is enlarged. Tortuous thoracic aorta is seen. Tip of endotracheal tube lies at the lower level of the clavicles. Nasogastric tube courses off the inferior edge of the film into the stomach. Prior sternotomy is noted. Bony structures are grossly intact. Impression: 1. Tip of endotracheal tube at the lower level the clavicles. Nasogastric tube within the stomach. 2. Diffuse parenchymal densities are seen which are stable from prior chest x-ray. 3. Cardiomegaly and tortuous thoracic aorta. Diagnostic code #3 Study was dictated in MDT --- Addendum1 signed ---
--- NOTE | 2019-12-11 18:42 | PCM.PRNOTE ---
- Free Text/Narrative Note: Procedure: Left subclavian triple-lumen central catheter Indication: IV access A sterile field with chlorhexidine and sterile drapes was prepared. Local anesthesia with 1% lidocaine without epinephrine infiltrated. A left subclavian 3-lumen catheter was then placed to 18 cm via the Seldinger technique. Good draw and flush all 3 lumens. The catheter was sutured into place, then dressed with a bio Derm Tegaderm by tx. The patient tolerated the procedure well. Post-procedure portable chest x-ray ordered. Post-procedure portable chest x-ray reviewed. The left subclavian catheter appears to be in good position with the tip in the superior vena cava. No left or right-sided pneumothorax. The cardiac silhouette is at the upper limits of normal. There are bilateral hazy infiltrates, consistent with viral pneumonia versus developing ARDS. Pulmonary vascular congestion cannot be ruled out. No pleural effusions seen on this AP view. Formal read per the Radiologist pending. The ICU will be notified that the catheter is ready for use.
[2019-12-11] MEDS: Sodium Chloride 0.9% 1,000 ML IV SCH (19:30)
[2019-12-11] MEDS ORDERED: Piperacillin/Tazobactam 4.5 GM in Sodium Chloride 0.9% 100 ML IV SCH (21:00)
[2019-12-12] MEDS: Vecuronium 10 MG in Sodium Chloride 0.9% 100 ML IV SCH ×4 (00:10→12:58)
[2019-12-12] MEDS: Piperacillin/Tazobactam 4.5 GM in Sodium Chloride 0.9% 100 ML IV SCH ×3 (00:11→15:42)
[2019-12-12] MEDS: Sodium Chloride 0.9% 1,000 ML IV SCH (04:48)
[2019-12-12] MEDS: fentaNYL 2,500 MCG in Sodium Chloride 0.9% 200 ML IV SCH (07:47)
[2019-12-12] MEDS: Enoxaparin 40 MG/0.4 ML Syringe SUBCUT SCH (08:47)
[2019-12-12] MEDS: Pantoprazole 40 MG Vial IVPUSH SCH (08:48)
[2019-12-12] MEDS ORDERED: Pantoprazole 40 MG Tab.CR PO SCH (09:00)
[2019-12-12] MEDS ORDERED: Aspirin 81 MG Tab.Chew PO SCH (09:00)
[2019-12-12] MEDS ORDERED: Clopidogrel 75 MG Tab PO SCH (09:00)
[2019-12-12] MEDS ORDERED: Folic Acid 1 MG Tab PO SCH (09:00)
[2019-12-12] MEDS ORDERED: Lactated Ringers 1,000 ML IV SCH (10:30)
[2019-12-12] MEDS: Acetaminophen 650 MG Supp RECTAL PRN (11:13)
[2019-12-12] MEDS ORDERED: Sodium Chloride 0.9% 500 ML IV SCH (11:45)
--- NOTE | 2019-12-12 12:18 | PCM.PN ---
- General Info Date of Service: 12/12/19 Subjective Update: INTERVAL HISTORY Vital Signs: BP trend: 109-118/54-68 HR trend: 93-106x' Tmax: 101.3 SatO2: >86% Drips: Fentanyl at 15 Versed at 15 Vecuronium at 30 NS at 75 Mechanical Ventilation: Intubation day: 12/11/2019 Mode: AC VC Vt: 450 FiO2: 100 PEEP: 10 RR: 12 Infectious Disease: Antibiotics: Zosyn day 2 Cultures: MRSA swab negative - Patient Data Vitals - Most Recent: Last Vital Signs Temp 101.2 F H 12/12/19 11:13 Pulse 85 12/11/19 20:00 Resp 13 12/12/19 08:00 BP 116/61 12/12/19 08:00 Pulse Ox 94 L 12/12/19 12:00 Weight - Most Recent: 100.834 kg - Exam Quality Assessment: Supplemental Oxygen, Central Line/PICC, Urine Catheter, DVT Prophylaxis. No: Skin Breakdown General: Sedated Neck: Trachea Midline Lungs: Decreased Breath Sounds, Crackles, Rales Cardiovascular: Regular Rate. No: Murmurs, Gallops, Rubs GI/Abdominal Exam: Distended Extremities: Pedal Edema, Slow Capillary Refill Sepsis Event Note - Evaluation Sepsis Screening Result: No Definite Risk - Focused Exam Vital Signs: Vital Signs Temp Temp Resp BP BP Pulse Ox Pulse Ox 12/12/19 12:00 94 L 12/12/19 11:13 101.2 F H 12/12/19 10:49 97 12/12/19 08:16 94 L 12/12/19 08:00 97.8 F 13 116/61 95 12/12/19 05:49 95 12/12/19 05:46 19 12/12/19 05:45 19 118/62 12/12/19 05:44 18 95 12/12/19 05:31 22 H 95 12/12/19 05:30 19 118/61 95 12/12/19 05:29 20 95 12/12/19 05:16 18 95 12/12/19 05:15 18 114/60 95 12/12/19 05:14 21 H 95 12/12/19 05:01 21 H 12/12/19 05:00 24 H 117/61 12/12/19 04:59 25 H 12/12/19 04:46 18 94 L 12/12/19 04:45 16 118/61 95 12/12/19 04:44 16 94 L 12/12/19 04:31 16 96 12/12/19 04:30 16 114/57 L 96 12/12/19 04:29 16 96 12/12/19 04:16 17 95 12/12/19 04:15 20 112/59 L 95 12/12/19 04:14 24 H 96 12/12/19 04:01 17 97 12/12/19 04:00 99.1 F 16 114/58 L 114/57 L 97 12/12/19 03:59 16 97 12/12/19 03:46 16 97 12/12/19 03:45 17 114/58 L 97 12/12/19 03:44 16 97 12/12/19 03:31 16 97 12/12/19 03:30 17 114/58 L 97 12/12/19 03:29 17 97 12/12/19 03:16 17 97 12/12/19 03:15 17 115/57 L 97 12/12/19 03:13 17 97 12/12/19 03:01 17 97 12/12/19 03:00 17 113/57 L 97 12/12/19 02:59 17 97 12/12/19 02:46 18 97 12/12/19 02:45 16 111/57 L 97 12/12/19 02:44 18 97 12/12/19 02:31 18 97 12/12/19 02:30 18 110/58 L 97 12/12/19 02:29 18 97 12/12/19 02:16 18 97 12/12/19 02:15 18 113/59 L 97 12/12/19 02:14 18 97 12/12/19 02:01 18 97 12/12/19 02:00 18 112/55 L 97 12/12/19 01:59 18 97 97 12/12/19 01:46 19 96 12/12/19 01:45 19 115/56 L 96 12/12/19 01:44 19 96 12/12/19 01:31 19 114/58 L 95 12/12/19 01:30 19 95 12/12/19 01:24 93 L 12/12/19 01:16 19 115/60 95 12/12/19 01:15 19 95 12/12/19 01:01 20 119/60 95 12/12/19 01:00 19 95 12/12/19 00:46 20 121/58 L 95 12/12/19 00:45 20 95 12/12/19 00:31 20 119/54 L 94 L 12/12/19 00:30 20 93 L Date Exam was Performed: 12/12/19 Time Exam was Performed: 17:17 - Problem List & Annotations (1) Acute hypoxemic respiratory failure SNOMED Code(s): 469639517 Code(s): J96.01 - ACUTE RESPIRATORY FAILURE WITH HYPOXIA Status: Acute Current Visit: Yes (2) Acute respiratory distress SNOMED Code(s): 566967369 Code(s): R06.03 - ACUTE RESPIRATORY DISTRESS Status: Acute Priority: High Current Visit: Yes (3) Bilateral pulmonary infiltrates on chest x-ray SNOMED Code(s): 660143918, 371860681 Code(s): R91.8 - OTHER NONSPECIFIC ABNORMAL FINDING OF LUNG FIELD Status: Acute Priority: High Current Visit: Yes (4) Hypoxia SNOMED Code(s): 191009542 Code(s): R09.02 - HYPOXEMIA Status: Acute Priority: High Current Visit : Yes (5) S/P CABG x 1 SNOMED Code(s): 597693948, 286310994, 971487499 Code(s): Z95.1 - PRESENCE OF AORTOCORONARY BYPASS GRAFT Status: Chronic Priority: Medium Current Visit: Yes (6) CAD (coronary artery disease) SNOMED Code(s): 32143700 Code(s): I25.10 - ATHSCL HEART DISEASE OF [place] CORONARY ARTERY W/O ANG PCTRS Status: Chronic Priority: Medium Current Visit: No Qualifiers: Coronary Disease-Associated Artery/Lesion type: bypass graft [place] vs. transplanted heart: [place] heart Associated angina: angina presence unspecified Qualified Code(s): I25.810 - Atherosclerosis of coronary artery bypass graft(s) without angina pectoris (7) GERD (gastroesophageal reflux disease) SNOMED Code(s): 497612751 Code(s): K21.9 - GASTRO-ESOPHAGEAL REFLUX DISEASE WITHOUT ESOPHAGITIS Status: Chronic Priority: Medium Current Visit: No Qualifiers: Esophagitis presence: esophagitis presence not specified Qualified Code(s) : K21.9 - Gastro-esophageal reflux disease without esophagitis (8) H/O aortic valve repair SNOMED Code(s): 186345885897974 Code(s): Z98.890 - OTHER SPECIFIED POSTPROCEDURAL STATES; Z86.79 - PERSONAL HISTORY OF OTHER DISEASES OF THE CIRCULATORY SYSTEM Status: Chronic Priority : Medium Current Visit: No (9) PAD (peripheral artery disease) SNOMED Code(s): 442388563 Code(s): I73.9 - PERIPHERAL VASCULAR DISEASE, UNSPECIFIED Status: Chronic Priority: Medium Current Visit: No (10) Hypoalbuminemia SNOMED Code(s): 566747658 Code(s): E88.09 - OTH DISORDERS OF PLASMA-PROTEIN METABOLISM, NEC Status: Acute Current Visit: Yes (11) Obesity (BMI 30.0-34.9) SNOMED Code(s): 436002513938649 Code(s): E66.9 - OBESITY, UNSPECIFIED Status: Acute Current Visit: Yes (12) HLD (hyperlipidemia) SNOMED Code(s): 59283545 Code(s): E78.5 - HYPERLIPIDEMIA, UNSPECIFIED Status: Chronic Priority: Low Current Visit: No Qualifiers: Hyperlipidemia type: unspecified Qualified Code(s): E78.5 - Hyperlipidemia , unspecified (13) HTN (hypertension) SNOMED Code(s): 26095428 Code(s): I10 - ESSENTIAL (PRIMARY) HYPERTENSION Status: Chronic Priority : Low Current Visit: No Qualifiers: Hypertension type: unspecified Qualified Code(s): I10 - Essential (primary ) hypertension (14) Acute hypercapnic respiratory failure SNOMED Code(s): 143475683 Code(s): J96.02 - ACUTE RESPIRATORY FAILURE WITH HYPERCAPNIA Status: Acute Current Visit: Yes (15) COPD (chronic obstructive pulmonary disease) SNOMED Code(s): 37865301 Code(s): J44.9 - CHRONIC OBSTRUCTIVE PULMONARY DISEASE, UNSPECIFIED Status : Acute Current Visit: Yes (16) Suspected COVID-19 virus infection SNOMED Code(s): 417500240 Code(s): R68.89 - OTHER GENERAL SYMPTOMS AND SIGNS Status: Acute Current Visit: Yes (17) Sepsis SNOMED Code(s): 33970803 Code(s): A41.9 - SEPSIS, UNSPECIFIED ORGANISM Status: Acute Current Visit : Yes - Problem List Review Problem List Initiated/Reviewed/Updated: Yes - Plan Plan:: ASSESSMENT BY DAY DAY OF ADMISSION - URI symptoms compatible with COVID19 x 12-14 days - Septic 2/2 PNA with concern for COVID19 - Started on Zosyn and azithromycin - Intubated 2/2 worsening reparatory status - Airborne isolation, Negative pressure room - COVID test obtained at [facility] on 12/11/19 - Central line placed DAY 1 - PCO2 is 71 - Adjust vent setting as per ARDS protocol - Reculture fever spike PLAN BY SYSTEMS: Neurology: Minimize central acting medications as possible. Daily sedation vacation. Frequent neurologic exams by nursing staff. Continue sedation with Fentanyl and Versed for now and taper down as tolerated. Respiratory: Continue mechanical ventilation. Endotracheal tube care by RT. Scheduled nebulizations. Regular suctioning. Aspiration precautions. Daily SBT. Repeat CXR as needed. ABGs as needed to evaluate need for MV parameter adjustments. Cardiovascular: Sepsis protocol. IVF resuscitation. Continue vasopressors for now and wean off as tolerated for MAP goal >65 GI and Nutrition: Start enteral nutrition via OG tube. OG tube care. Monitor residuals and adjust tube feedings rate as tolerated. Scheduled free water flushes. Kidney and Electrolytes: Strict monitoring of intake, output and overall fluid balance. Maintain neutral as possible. Avoid nephrotoxic medications. Medications to be dosed according to renal function. Monitor electrolytes and replace as needed. Trend creatinine and BUN. Endocrine: Scheduled Accu-checks. Hypoglycemia protocol in place. Infectious Disease: Trend temperature. Panculture if febrile. Follow up on cultures from admission as well as COVID result Continue antibiotic regimen with Zosyn for now. Hematology and Coagulation: No active bleeding, no coagulopathy to correct, no need to transfuse blood products at the moment. Goal hemoglobin >8g Musculoskeletal and Skin: Bed turn rotation by nursing staff. Daily evaluation for pressure ulcers. PROPHYLAXIS: DVT- SCD's and Lovenox GI- Pantoprazole CODE STATUS: FULL CODE DISPOSITION: Patient will remain admitted in ICU for mechanical ventilation, pending COVID result.
--- NOTE | 2019-12-12 12:18 | PCM.PN ---
- General Info Date of Service: 12/12/19 - Patient Data Vitals - Most Recent: Last Vital Signs Temp 101.2 F H 12/12/19 11:13 Pulse 85 12/11/19 20:00 Resp 13 12/12/19 08:00 BP 116/61 12/12/19 08:00 Pulse Ox 94 L 12/12/19 12:00 Weight - Most Recent: 100.834 kg I&O - Last 24 Hours: Intake & Output 12/11/19 12/12/19 12/12/19 22:59 06:59 14:59 Intake Total 297 1472 471 Output Total 255 625 300 Balance 42 847 171 Lab Results Last 24 Hours: Laboratory Results - last 24 hr 12/11/19 12/11/19 12/11/19 Range/Units 13:40 16:26 17:30 WBC (4.23-9.07) K/mm3 RBC (4.63-6.08) M/mm3 Hgb (13.7-17.5) gm/dl Hct (40.1-51.0) % MCV (79.0-92.2) fl MCH (25.7-32.2) pg MCHC (32.2-35.5) g/dl RDW Std Deviation (35.1-43.9) fL Plt Count (163-337) K/mm3 MPV (9.4-12.3) fl Neut % (Auto) (34.0-67.9) % Lymph % (Auto) (21.8-53.1) % [place] % (Auto) (5.3-12.2) % Eos % (Auto) (0.8-7.0) Baso % (Auto) (0.1-1.2) % Neut # (Auto) (1.78-5.38) K/mm3 Lymph # (Auto) (1.32-3.57) K/mm3 [place] # (Auto) (0.30-0.82) K/mm3 Eos # (Auto) (0.04-0.54) K/mm3 Baso # (Auto) (0.01-0.08) K/mm3 Manual Slide Review Puncture Site Rt radial Rt radial ABG pH 7.49 H 7.36 (7.35-7.45) ABG pCO2 28.0 L 39.8 (35.0-45.0) mmHg ABG pO2 58.0 L 84.0 (80.0-100.0) mmHg ABG HCO3 21.2 L 22.1 (22.0-26.0) meq/L ABG O2 Saturation 94.4 L 94.4 L (96.0-97.0) % ABG Base Excess -0.8 -2.5 L (-2-2.0) Ton Test Positive Positive A-a Gradient 165 581 mmHg O2 Delivery Device Nasal cannula Ventilator Oxygen Flow Rate 4.0 FiO2 36.00 100.00 (21.00-100.00) % Tidal Volume 450.0 cc PEEP 10.0 cmH20 Pressure Support 0.0 cmH2O Sodium (136-145) mEq/L Potassium (3.5-5.1) mEq/L Chloride (98-107) mEq/L Carbon Dioxide (21-32) mEq/L Anion Gap (5-15) BUN (7-18) mg/dL Creatinine (0.7-1.3) mg/dL Est Cr Clr Drug Dosing mL/min Estimated GFR (MDRD) (>60) mL/min BUN/Creatinine Ratio (14-18) Glucose (80-115) mg/dL Calcium (8.5-10.1) mg/dL Phosphorus (2.6-4.7) mg/dL Magnesium (1.8-2.4) mg/dl Total Bilirubin (0.2-1.0) mg/dL AST (15-37) U/L ALT (16-63) U/L Alkaline Phosphatase (46-116) U/L Total Protein (6.4-8.2) g/dl Albumin (3.4-5.0) g/dl Globulin gm/dL Albumin/Globulin Ratio (1-2) MRSA (PCR) Negative 12/12/19 12/12/19 12/12/19 Range/Units 04:48 04:48 08:34 WBC 8.36 (4.23-9.07) K/mm3 RBC 3.68 L (4.63-6.08) M/mm3 Hgb 11.1 L (13.7-17.5) gm/dl Hct 35.8 L (40.1-51.0) % MCV 97.3 H D (79.0-92.2) fl MCH 30.2 (25.7-32.2) pg MCHC 31.0 L (32.2-35.5) g/dl RDW Std Deviation 47.7 H (35.1-43.9) fL Plt Count 204 (163-337) K/mm3 MPV 9.7 (9.4-12.3) fl Neut % (Auto) 86.3 H (34.0-67.9) % Lymph % (Auto) 8.9 L (21.8-53.1) % [place] % (Auto) 3.9 L (5.3-12.2) % Eos % (Auto) 0 L (0.8-7.0) Baso % (Auto) 0.2 (0.1-1.2) % Neut # (Auto) 7.21 H (1.78-5.38) K/mm3 Lymph # (Auto) 0.74 L (1.32-3.57) K/mm3 [place] # (Auto) 0.33 (0.30-0.82) K/mm3 Eos # (Auto) 0.00 L (0.04-0.54) K/mm3 Baso # (Auto) 0.02 (0.01-0.08) K/mm3 Manual Slide Review Abnormal smear Puncture Site Rt brachial ABG pH 7.22 L (7.35-7.45) ABG pCO2 71.1 H* (35.0-45.0) mmHg ABG pO2 95.0 (80.0-100.0) mmHg ABG HCO3 27.8 H (22.0-26.0) meq/L ABG O2 Saturation 95.6 L (96.0-97.0) % ABG Base Excess -0.9 (-2-2.0) Ton Test A-a Gradient 531 mmHg O2 Delivery Device Ventilator Oxygen Flow Rate FiO2 100.00 (21.00-100.00) % Tidal Volume 450.0 cc PEEP 10.0 cmH20 Pressure Support cmH2O Sodium 137 (136-145) mEq/L Potassium 4.6 (3.5-5.1) mEq/L Chloride 103 (98-107) mEq/L Carbon Dioxide 28 (21-32) mEq/L Anion Gap 10.6 (5-15) BUN 11 (7-18) mg/dL Creatinine 1.0 (0.7-1.3) mg/dL Est Cr Clr Drug Dosing 73.65 mL/min Estimated GFR (MDRD) > 60 (>60) mL/min BUN/Creatinine Ratio 11.0 L (14-18) Glucose 105 (80-115) mg/dL Calcium 7.6 L (8.5-10.1) mg/dL Phosphorus 2.8 (2.6-4.7) mg/dL Magnesium 2.0 (1.8-2.4) mg/dl Total Bilirubin 0.6 (0.2-1.0) mg/dL AST 51 H (15-37) U/L ALT 22 (16-63) U/L Alkaline Phosphatase 45 L (46-116) U/L Total Protein 6.6 (6.4-8.2) g/dl Albumin 2.6 L (3.4-5.0) g/dl Globulin 4.0 gm/dL Albumin/Globulin Ratio 0.7 L (1-2) MRSA (PCR) 12/12/19 Range/Units 11:09 WBC (4.23-9.07) K/mm3 RBC (4.63-6.08) M/mm3 Hgb (13.7-17.5) gm/dl Hct (40.1-51.0) % MCV (79.0-92.2) fl MCH (25.7-32.2) pg MCHC (32.2-35.5) g/dl RDW Std Deviation (35.1-43.9) fL Plt Count (163-337) K/mm3 MPV (9.4-12.3) fl Neut % (Auto) (34.0-67.9) % Lymph % (Auto) (21.8-53.1) % [place] % (Auto) (5.3-12.2) % Eos % (Auto) (0.8-7.0) Baso % (Auto) (0.1-1.2) % Neut # (Auto) (1.78-5.38) K/mm3 Lymph # (Auto) (1.32-3.57) K/mm3 [place] # (Auto) (0.30-0.82) K/mm3 Eos # (Auto) (0.04-0.54) K/mm3 Baso # (Auto) (0.01-0.08) K/mm3 Manual Slide Review Puncture Site Rt brachial ABG pH 7.27 L (7.35-7.45) ABG pCO2 60.8 H (35.0-45.0) mmHg ABG pO2 92.0 (80.0-100.0) mmHg ABG HCO3 26.7 H (22.0-26.0) meq/L ABG O2 Saturation 96.3 (96.0-97.0) % ABG Base Excess -0.9 (-2-2.0) Ton Test A-a Gradient 547 mmHg O2 Delivery Device Ventilator Oxygen Flow Rate FiO2 100.00 (21.00-100.00) % Tidal Volume 450.0 cc PEEP 10.0 cmH20 Pressure Support cmH2O Sodium (136-145) mEq/L Potassium (3.5-5.1) mEq/L Chloride (98-107) mEq/L Carbon Dioxide (21-32) mEq/L Anion Gap (5-15) BUN (7-18) mg/dL Creatinine (0.7-1.3) mg/dL Est Cr Clr Drug Dosing mL/min Estimated GFR (MDRD) (>60) mL/min BUN/Creatinine Ratio (14-18) Glucose (80-115) mg/dL Calcium (8.5-10.1) mg/dL Phosphorus (2.6-4.7) mg/dL Magnesium (1.8-2.4) mg/dl Total Bilirubin (0.2-1.0) mg/dL AST (15-37) U/L ALT (16-63) U/L Alkaline Phosphatase (46-116) U/L Total Protein (6.4-8.2) g/dl Albumin (3.4-5.0) g/dl Globulin gm/dL Albumin/Globulin Ratio (1-2) MRSA (PCR) Denis Results Last 24 Hours: Microbiology 12/11/19 10:25 Aerobic Blood Culture - Preliminary Blood NO GROWTH AFTER 1 DAY Anaerobic Blood Culture - Preliminary NO GROWTH AFTER 1 DAY Med Orders - Current: Current Medications Acetaminophen (Tylenol) 650 mg RECTAL Q6H PRN PRN Reason: Fever Last Admin: 12/12/19 11:13 Dose: 650 mg Albuterol (Proventil Hfa) 0 gm INH Q4H PRN PRN Reason: SOB/Wheezing Enoxaparin Sodium (Lovenox) 40 mg SUBCUT DAILY [facility] Last Admin: 12/12/19 08:47 Dose: 40 mg Piperacillin Sod/Tazobactam (Sod 4.5 gm/ Sodium Chloride) 100 mls @ 25 mls/hr IV Q8H [facility] Last Admin: 12/12/19 07:55 Dose: 25 mls/hr Fentanyl 2,500 mcg/ Sodium (Chloride) 250 mls @ 9.92 mls/hr IV TITRATE [facility]; Protocol Last Titration: 12/12/19 07:47 Dose: 1.51 mcg/kg/hr, 15 mls/hr Midazolam HCl 100 mg/ Sodium (Chloride) 100 mls @ 1 mls/hr IV ASDIRECTED [facility] Last Admin: 12/12/19 08:09 Dose: 15 mls/hr Vecuronium [place] 10 mg/ (Sodium Chloride) 100 mls @ 29.39 mls/hr IV TITRATE [facility]; Protocol Last Admin: 12/12/19 07:44 Dose: 0.5 mcg/kg/min, 29.39 mls/hr Lactated Ringer's (Ringers, Lactated) 1,000 mls @ 75 mls/hr IV ASDIRECTED [facility] Last Admin: 12/12/19 10:59 Dose: 75 mls/hr Sodium Chloride (Normal Saline) 500 mls @ 10 mls/hr IV ASDIRECTED [facility] Pantoprazole Sodium (Protonix Iv) 40 mg IVPUSH DAILY [facility] Last Admin: 12/12/19 08:48 Dose: 40 mg Sodium Chloride (Saline Flush) 10 ml FLUSH ASDIRECTED PRN PRN Reason: Keep Vein Open Last Admin: 12/11/19 10:35 Dose: 10 ml Discontinued Medications Acetaminophen (Tylenol) 975 mg PO NOW ONE Stop: 12/11/19 10:30 Last Admin: 12/11/19 10:35 Dose: 975 mg Acetaminophen (Tylenol) 650 mg PO Q4H PRN PRN Reason: Pain (Mild 1-3)/fever Aspirin (Aspirin) 81 mg PO DAILY [facility] Azithromycin (Zithromax) 500 mg PO DAILY [facility] Last Admin: 12/11/19 13:55 Dose: Not Given Clopidogrel Bisulfate (Plavix) 75 mg PO DAILY [facility] Folic Acid (Folic Acid) 1 mg PO DAILY [facility] Hydroxychloroquine Sulfate (Plaquenil) 400 mg NGTUBE ONETIME ONE Stop: 12/11/19 18:16 Last Admin: 12/11/19 18:37 Dose: Not Given Hydroxychloroquine Sulfate (Plaquenil) 200 mg PO DAILY [facility] Hydroxychloroquine Sulfate (Plaquenil) 200 mg NGTUBE DAILY [facility] Sodium Chloride (Normal Saline) 1,000 mls @ 75 mls/hr IV ASDIRECTED [facility] Last Admin: 12/12/19 04:48 Dose: 75 mls/hr Piperacillin Sod/Tazobactam (Sod 4.5 gm/ Sodium Chloride) 100 mls @ 200 mls/hr IV ONETIME ONE Stop: 12/11/19 13:29 Last Admin: 12/11/19 13:55 Dose: Not Given Piperacillin Sod/Tazobactam (Sod 4.5 gm/ Sodium Chloride) 100 mls @ 25 mls/hr IV Q8H [facility] Levofloxacin/Dextrose 750 mg/ (Premix) 150 mls @ 100 mls/hr IV Q24H [facility] Piperacillin Sod/Tazobactam (Sod 4.5 gm/ Sodium Chloride) 100 mls @ 200 mls/hr IV ONETIME ONE Stop: 12/11/19 14:29 Last Admin: 12/11/19 16:20 Dose: 200 mls/hr Midazolam HCl 50 mg/ Sodium (Chloride) 50 mls @ 1 mls/hr IV TITRATE [facility]; Protocol Stop: 12/11/19 23:00 Last Titration: 12/11/19 16:30 Dose: 15 mg/hr, 15 mls/hr Vecuronium [place] 10 mg/ (Sodium Chloride) 100 mls @ 59.54 mls/hr IV TITRATE [facility]; Protocol Last Admin: 12/12/19 03:28 Dose: 0.5 mcg/kg/min, 30 mls/hr Midazolam HCl (Versed 1 Mg/Ml) 10 mg IVPUSH ONETIME ONE Stop: 12/11/19 16:35 Last Admin: 12/11/19 18:36 Dose: Not Given Midazolam HCl (Versed 1 Mg/Ml) 5 mg IVPUSH ONETIME ONE Stop: 12/11/19 16:37 Last Admin: 12/11/19 18:36 Dose: Not Given Pantoprazole Sodium (Protonix) 40 mg PO DAILY [facility] Sepsis Event Note - Evaluation Sepsis Screening Result: No Definite Risk - Focused Exam Vital Signs: Vital Signs Temp Temp Resp BP BP Pulse Ox Pulse Ox 12/12/19 12:00 94 L 12/12/19 11:13 101.2 F H 12/12/19 10:49 97 12/12/19 08:16 94 L 12/12/19 08:00 97.8 F 13 116/61 95 12/12/19 05:49 95 12/12/19 05:46 19 95 12/12/19 05:45 19 118/62 95 12/12/19 05:44 18 95 12/12/19 05:31 22 H 95 12/12/19 05:30 19 118/61 95 12/12/19 05:29 20 95 12/12/19 05:16 18 95 12/12/19 05:15 18 114/60 95 12/12/19 05:14 21 H 95 12/12/19 05:01 21 H 95 12/12/19 05:00 24 H 117/61 95 12/12/19 04:59 25 H 95 12/12/19 04:46 18 94 L 12/12/19 04:45 16 118/61 95 12/12/19 04:44 16 94 L 12/12/19 04:31 16 96 12/12/19 04:30 16 114/57 L 96 12/12/19 04:29 16 96 12/12/19 04:16 17 95 12/12/19 04:15 20 112/59 L 95 12/12/19 04:14 24 H 96 12/12/19 04:01 17 97 12/12/19 04:00 99.1 F 16 114/58 L 114/57 L 97 12/12/19 03:59 16 97 12/12/19 03:46 16 97 12/12/19 03:45 17 114/58 L 97 12/12/19 03:44 16 97 12/12/19 03:31 16 97 12/12/19 03:30 17 114/58 L 97 12/12/19 03:29 17 97 12/12/19 03:16 17 97 12/12/19 03:15 17 115/57 L 97 12/12/19 03:13 17 97 12/12/19 03:01 17 97 12/12/19 03:00 17 113/57 L 97 12/12/19 02:59 17 97 12/12/19 02:46 18 97 12/12/19 02:45 16 111/57 L 97 12/12/19 02:44 18 97 12/12/19 02:31 18 97 12/12/19 02:30 18 110/58 L 97 12/12/19 02:29 18 97 12/12/19 02:16 18 97 12/12/19 02:15 18 113/59 L 97 12/12/19 02:14 18 97 12/12/19 02:01 18 97 12/12/19 02:00 18 112/55 L 97 12/12/19 01:59 18 97 97 12/12/19 01:46 19 96 12/12/19 01:45 19 115/56 L 96 12/12/19 01:44 19 96 12/12/19 01:31 19 114/58 L 95 12/12/19 01:30 19 95 12/12/19 01:24 93 L 12/12/19 01:16 19 115/60 95 12/12/19 01:15 19 95 12/12/19 01:01 20 119/60 95 12/12/19 01:00 19 95 12/12/19 00:46 20 121/58 L 95 12/12/19 00:45 20 95 12/12/19 00:31 20 119/54 L 94 L 12/12/19 00:30 20 93 L Date Exam was Performed: 12/12/19 Time Exam was Performed: 12:18 - My Orders Last 24 Hours: My Active Orders 12/12/19 10:16 PT Evaluation and Treatment [CONS] Routine 12/12/19 10:30 Lactated Ringers [Ringers, Lactated] 1,000 ml IV ASDIRECTED 12/12/19 11:29 CULTURE BLOOD [BC] Stat 12/12/19 11:36 Arterial Line Insertion [OM.PC] Stat 12/12/19 11:45 Sodium Chloride 0.9% [Normal Saline] 500 ml IV ASDIRECTED - Plan Plan:: I/P: Acute: Multifocal PNA/Suspected COVID-19 infection -Reports symptoms for past 12-14 days -Seen at walk-in and started on azithromycin. -Reports cough, fever, chills, night sweats, diarrhea, weight loss -Sepsis screen: Unknown bacterial infection, Normal WBC, Tmax 101.3, HR WNL, RR 28, Lactic acid 1.8 -Started on Zosyn and azithromycin -Intubated -This is likely viral and not related to a bacterial infection -Saturations at clinic 70-80% -Temp 101.3 in ED -WBC 7.0, Platelets 186, CRP 10.3, [id number], LDH 796, Lactic acid 1.8 -ABG shows respiratory acidosis -Oxygen saturations in mid to upper 80's in ICU -Intubated 2/2 worsening reparatory status -Judicious use of IV fluids -Airborne isolation, Negative pressure room -COVID test obtained at [place] on 12/11/19- obtain results once available -Repeat CXRs as needed -RT consult -Recommend prone position 17-18 hrs per day. Does not need to be continuous -NG tube in place -Vent management -Fentanyl/Versed/Vecuronium for sedation. -Central line placed Chronic: CAD HLD Hypertension RI Aortic bovine valve replacement Palpitations Peripheral artery disease Heartburn Arthritis Hyperglycemia CABG x1 Cardiac stenting x4 Plan: Admit to ICU Review home medications Other orders as indicated above AM Labs as ordered Code status: Full code - confirmed with patient DVT prophylaxis: Lovenox PCP: Dr. Tolliver
--- NOTE | 2019-12-12 12:24 | PCM.PRNOTE ---
- Free Text/Narrative Note: Arterial Line Placement Note Date: 12/12/2019 Time: 12:15 PM Indication: Hemodynamic monitoring and need for continuous O2 monitoring in highly infectious patient Attending: Tena Petersen MD A time-out was completed verifying correct patient, procedure, site, positioning , and special equipment if applicable. Allens test was performed to ensure adequate perfusion. The patients right wrist was prepped and draped in sterile fashion. 1% Lidocaine was used to anesthetize the area. A 20G Arrow arterial line was introduced into the radial artery. The catheter was threaded over the guide wire and the needle was removed with appropriate pulsatile blood return. The catheter was then sutured in place to the skin and a sterile dressing applied. Perfusion to the extremity distal to the point of catheter insertion was checked and found to be adequate. Estimated Blood Loss: 5mL The patient tolerated the procedure well and there were no complications.
[2019-12-12] MEDS ORDERED: Hydroxychloroquine 200 MG Tab PO SCH (18:15)
[2019-12-12] MEDS: HYDROXYCHLOROQUINE 25 MG/ML PO SCH (18:28)
[2019-12-12] MEDS: Lactated Ringers 1,000 ML IV SCH (21:35)
[2019-12-13] MEDS: Piperacillin/Tazobactam 4.5 GM in Sodium Chloride 0.9% 100 ML IV SCH ×3 (01:04→16:00)
[2019-12-13] MEDS: fentaNYL 2,500 MCG in Sodium Chloride 0.9% 200 ML IV SCH ×2 (01:35→14:27)
[2019-12-13] MEDS: Lactated Ringers 1,000 ML IV SCH ×3 (05:37→22:31)
[2019-12-13] MEDS: HYDROXYCHLOROQUINE 25 MG/ML PO SCH (05:39)
[2019-12-13] MEDS: Enoxaparin 40 MG/0.4 ML Syringe SUBCUT SCH (08:02)
[2019-12-13] MEDS: Pantoprazole 40 MG Vial IVPUSH SCH (08:03)
--- NOTE | 2019-12-13 15:34 | PCM.PN ---
- General Info Date of Service: 12/13/19 Subjective Update: INTERVAL HISTORY - COVID19 resulted positive Vital Signs: MAP trend: 63-89 HR trend: 80-108x' Tmax: 100.1 SatO2: >94% Drips: Fentanyl Versed Mechanical Ventilation: Intubation day: 12/11/2019 Mode: AC VC Vt: 450 FiO2: 50 PEEP: 10 RR: 16 Ppeak: 26 Vte: 9.1 Balance: Urine output: 780 NG tube output 100 Balance: + 889 Infectious Disease: Antibiotics: Zosyn day 3, Plaquenil day 2 Cultures: MRSA swab negative COVID19 POSITIVE - Patient Data Vitals - Most Recent: Last Vital Signs Temp 98.1 F 12/13/19 12:00 Pulse 85 12/11/19 20:00 Resp 17 12/13/19 12:00 BP 106/57 L 12/13/19 12:00 Pulse Ox 93 L 12/13/19 15:18 Weight - Most Recent: 99.926 kg - Exam Quality Assessment: Supplemental Oxygen, Central Line/PICC, Urine Catheter, DVT Prophylaxis General: Sedated HEENT: Pupils Equal, Pupils Reactive Lungs: Decreased Breath Sounds, Crackles Cardiovascular: Tachycardia. No: Murmurs, Gallops, Rubs GI/Abdominal Exam: Distended, Abnormal Bowel Sounds Extremities: Pedal Edema, Slow Capillary Refill Sepsis Event Note - Evaluation Sepsis Screening Result: No Definite Risk - Focused Exam Vital Signs: Vital Signs Temp Resp BP BP BP Pulse Ox Pulse Ox 12/13/19 15:18 93 L 12/13/19 13:18 95 12/13/19 12:00 98.1 F 17 106/57 L 96 12/13/19 11:53 98 12/13/19 09:39 99 12/13/19 07:40 88 L 12/13/19 07:33 98.6 F 17 102/47 L 93 L 12/13/19 06:16 13 95 12/13/19 06:15 17 95/58 L 88 L 12/13/19 06:14 24 H 89 L 12/13/19 06:01 18 91 L 12/13/19 06:00 20 107/56 L 91 L 93 L 12/13/19 05:59 18 91 L 12/13/19 05:46 15 95 12/13/19 05:45 17 101/58 L 93 L 12/13/19 05:44 18 93 L 12/13/19 05:31 19 94 L 12/13/19 05:30 15 102/54 L 93 L 12/13/19 05:29 15 93 L 12/13/19 05:16 18 94 L 12/13/19 05:15 16 97/54 L 95 12/13/19 05:14 14 95 12/13/19 05:01 14 92 L 12/13/19 05:00 19 102/59 L 92 L 12/13/19 04:59 18 92 L 12/13/19 04:46 18 93 L 12/13/19 04:45 14 107/59 L 93 L 12/13/19 04:44 18 93 L 12/13/19 04:31 18 92 L 12/13/19 04:30 19 110/56 L 91 L 12/13/19 04:29 15 91 L 12/13/19 04:16 22 H 88 L 12/13/19 04:15 21 H 108/67 88 L 12/13/19 04:14 14 88 L 12/13/19 04:01 19 92 L 12/13/19 04:00 99.3 F 12 109/65 109/65 106/48 L 92 L 12/13/19 03:59 15 93 L 12/13/19 03:46 15 90 L 12/13/19 03:45 11 L 110/66 90 L 12/13/19 03:44 21 H 91 L Date Exam was Performed: 12/13/19 Time Exam was Performed: 16:56 - Problem List & Annotations (1) COVID-19 virus detected SNOMED Code(s): 921084986 Code(s): U07.1 - COVID-19 Status: Acute Current Visit: Yes (2) Acute hypoxemic respiratory failure SNOMED Code(s): 534847383 Code(s): J96.01 - ACUTE RESPIRATORY FAILURE WITH HYPOXIA Status: Acute Current Visit: Yes (3) Acute respiratory distress SNOMED Code(s): 836388362 Code(s): R06.03 - ACUTE RESPIRATORY DISTRESS Status: Acute Priority: High Current Visit: Yes (4) Bilateral pulmonary infiltrates on chest x-ray SNOMED Code(s): 893005161, 650394490 Code(s): R91.8 - OTHER NONSPECIFIC ABNORMAL FINDING OF LUNG FIELD Status: Acute Priority: High Current Visit: Yes (5) Hypoxia SNOMED Code(s): 999823699 Code(s): R09.02 - HYPOXEMIA Status: Acute Priority: High Current Visit : Yes (6) S/P CABG x 1 SNOMED Code(s): 798975049, 070160164, 083772788 Code(s): Z95.1 - PRESENCE OF AORTOCORONARY BYPASS GRAFT Status: Chronic Priority: Medium Current Visit: Yes (7) CAD (coronary artery disease) SNOMED Code(s): 60045816 Code(s): I25.10 - ATHSCL HEART DISEASE OF [place] CORONARY ARTERY W/O ANG PCTRS Status: Chronic Priority: Medium Current Visit: No Qualifiers: Coronary Disease-Associated Artery/Lesion type: bypass graft [place] vs. transplanted heart: [place] heart Associated angina: angina presence unspecified Qualified Code(s): I25.810 - Atherosclerosis of coronary artery bypass graft(s) without angina pectoris (8) GERD (gastroesophageal reflux disease) SNOMED Code(s): 337246500 Code(s): K21.9 - GASTRO-ESOPHAGEAL REFLUX DISEASE WITHOUT ESOPHAGITIS Status: Chronic Priority: Medium Current Visit: No Qualifiers: Esophagitis presence: esophagitis presence not specified Qualified Code(s) : K21.9 - Gastro-esophageal reflux disease without esophagitis (9) H/O aortic valve repair SNOMED Code(s): 742508714282401 Code(s): Z98.890 - OTHER SPECIFIED POSTPROCEDURAL STATES; Z86.79 - PERSONAL HISTORY OF OTHER DISEASES OF THE CIRCULATORY SYSTEM Status: Chronic Priority : Medium Current Visit: No (10) PAD (peripheral artery disease) SNOMED Code(s): 129235664 Code(s): I73.9 - PERIPHERAL VASCULAR DISEASE, UNSPECIFIED Status: Chronic Priority: Medium Current Visit: No (11) Hypoalbuminemia SNOMED Code(s): 382146536 Code(s): E88.09 - OTH DISORDERS OF PLASMA-PROTEIN METABOLISM, NEC Status: Acute Current Visit: Yes (12) Obesity (BMI 30.0-34.9) SNOMED Code(s): 111619419227532 Code(s): E66.9 - OBESITY, UNSPECIFIED Status: Acute Current Visit: Yes (13) HLD (hyperlipidemia) SNOMED Code(s): 52424659 Code(s): E78.5 - HYPERLIPIDEMIA, UNSPECIFIED Status: Chronic Priority: Low Current Visit: No Qualifiers: Hyperlipidemia type: unspecified Qualified Code(s): E78.5 - Hyperlipidemia , unspecified (14) HTN (hypertension) SNOMED Code(s): 68872372 Code(s): I10 - ESSENTIAL (PRIMARY) HYPERTENSION Status: Chronic Priority : Low Current Visit: No Qualifiers: Hypertension type: unspecified Qualified Code(s): I10 - Essential (primary ) hypertension (15) Acute hypercapnic respiratory failure SNOMED Code(s): 153904259 Code(s): J96.02 - ACUTE RESPIRATORY FAILURE WITH HYPERCAPNIA Status: Acute Current Visit: Yes (16) COPD (chronic obstructive pulmonary disease) SNOMED Code(s): 05507536 Code(s): J44.9 - CHRONIC OBSTRUCTIVE PULMONARY DISEASE, UNSPECIFIED Status : Acute Current Visit: Yes (17) Suspected COVID-19 virus infection SNOMED Code(s): 150938593 Code(s): R68.89 - OTHER GENERAL SYMPTOMS AND SIGNS Status: Acute Current Visit: Yes (18) Sepsis SNOMED Code(s): 29682280 Code(s): A41.9 - SEPSIS, UNSPECIFIED ORGANISM Status: Acute Current Visit : Yes (19) ARDS (adult respiratory distress syndrome) SNOMED Code(s): 43139731, 60397739 Code(s): J80 - ACUTE RESPIRATORY DISTRESS SYNDROME Status: Acute Current Visit: Yes (20) Acute respiratory distress syndrome (ARDS) due to 2019 novel coronavirus SNOMED Code(s): 51717456 Code(s): U07.1 - COVID-19; J80 - ACUTE RESPIRATORY DISTRESS SYNDROME Status : Acute Current Visit: Yes - Problem List Review Problem List Initiated/Reviewed/Updated: Yes - Plan Plan:: ASSESSMENT BY DAY DAY OF ADMISSION - URI symptoms compatible with COVID19 x 12-14 days - Septic 2/2 PNA with concern for COVID19 - Started on Zosyn and azithromycin - Intubated 2/2 worsening reparatory status - Airborne isolation, Negative pressure room - COVID test obtained at [place] on 12/11/19 - Central line placed DAY 1 - PCO2 is 71 - Adjust vent setting as per ARDS protocol - Reculture fever spike DAY 2 - COVID-19 resulted positive - Patient started on Plaquenil PLAN BY SYSTEMS: Neurology: Minimize central acting medications as possible. Daily sedation vacation. Frequent neurologic exams by nursing staff. Continue sedation with Fentanyl and Versed for now and taper down as tolerated. Respiratory: Continue mechanical ventilation. Endotracheal tube care by RT. PRN nebulizations. Regular suctioning. Aspiration precautions. Daily SBT. Repeat CXR as needed. ABGs as needed to evaluate need for MV parameter adjustments. Maximum isolation precautions. Plaquenil and Zosyn Cardiovascular: Sepsis protocol. IVF resuscitation. Continue vasopressors for now and wean off as tolerated for MAP goal >65 GI and Nutrition: Continue enteral nutrition via OG tube with Osmolite 1.5 OG tube care. Monitor residuals and adjust tube feedings rate as tolerated. Scheduled free water flushes. Repeat LFTs in AM Kidney and Electrolytes: Strict monitoring of intake, output and overall fluid balance. Maintain as neutral as possible. Avoid nephrotoxic medications. Medications to be dosed according to renal function. Monitor electrolytes and replace as needed. Trend creatinine and BUN. Endocrine: Scheduled Accu-checks. Hypoglycemia protocol in place. Infectious Disease: Trend temperature. Panculture if febrile. Follow up on cultures Continue Plaquenil and Zosyn Procalcitonin every 48 hours Hematology and Coagulation: No active bleeding, no coagulopathy to correct, no need to transfuse blood products at the moment. Goal hemoglobin >8g Musculoskeletal and Skin: Bed turn rotation by nursing staff. Daily evaluation for pressure ulcers. PROPHYLAXIS: DVT- SCD's and Lovenox GI- Pantoprazole CODE STATUS: FULL CODE DISPOSITION: Patient will remain admitted in ICU for mechanical ventilation. Maximum isolation precautions
[2019-12-13] MEDS ORDERED: Hydroxychloroquine 200 MG Tab NGTUBE SCH (18:15)
[2019-12-13] MEDS ORDERED: Adenosine 6 MG/2 ML SDV ONE ×2 (19:26→19:33)
[2019-12-13] MEDS ORDERED: Adenosine 12 MG/4 ML SDV ONE ×2 (19:26→19:33)
[2019-12-13] MEDS ORDERED: Dextrose 5% in Water 250 ML ONE (20:40)
[2019-12-13] MEDS: propofoL 100 ML IV SCH (20:57)
[2019-12-13] MEDS: Norepinephrine 4 MG in Dextrose 5% in Water 246 ML IV SCH ×2 (21:00)
[2019-12-14] MEDS: Piperacillin/Tazobactam 4.5 GM in Sodium Chloride 0.9% 100 ML IV SCH ×3 (01:05→14:59)
[2019-12-14] MEDS: fentaNYL 2,500 MCG in Sodium Chloride 0.9% 200 ML IV SCH ×2 (04:19→16:54)
[2019-12-14] MEDS: Non-Formulary Medication 1 Each PO SCH (05:26)
[2019-12-14] MEDS: Lactated Ringers 1,000 ML IV SCH ×3 (06:37→20:23)
[2019-12-14] MEDS: propofoL 100 ML IV SCH ×2 (08:35→18:53)
[2019-12-14] MEDS: Pantoprazole 40 MG Vial IVPUSH SCH (08:37)
[2019-12-14] MEDS: Enoxaparin 40 MG/0.4 ML Syringe SUBCUT SCH (08:44)
[2019-12-14] MEDS ORDERED: Furosemide 40 MG/4 ML VIAL IVPUSH ONE (09:46)
[2019-12-14] MEDS: Sodium Phosphate 30 MMOLE in Sodium Chloride 0.9% 250 ML IV SCH ×2 (11:01→14:40)
--- NOTE | 2019-12-14 15:45 | PCM.PN ---
- General Info Date of Service: 12/14/19 Subjective Update: INTERVAL HISTORY - Runs of SVTs with hypoxemia 85% during the evening, resolved spontaneously without recurrence Vital Signs: MAP trend: 64-75 HR trend: 69-96x' Tmax: 98.6 SatO2: >85% Drips: Fentanyl Versed LR Propofol Mechanical Ventilation: Intubation day: 12/11/2019 Mode: AC VC Vt: 500 FiO2: 70 PEEP: 14 RR: 22 Ppeak: 30 Pmean: 29 Vte: 11.4 I:E: 1:1.7 Labs: PO4: 1.3 Balance: Urine output: 805 Balance: + 1,395 Balance since admission: + 7,101 BM: 12/10 Infectious Disease: Antibiotics: Zosyn day 4, Plaquenil dose3 out of 6 Cultures: MRSA swab negative COVID19 POSITIVE Diet: Osmolyte 1.5 at 30ml/hr without residuals 50ml free water flushes Lines and tubes: Left subclavian central line 12/10 Right radial arterial line 12/11 [place] catheter since admission - Patient Data Vitals - Most Recent: Last Vital Signs Temp 98.1 F 12/14/19 14:52 Pulse 85 12/11/19 20:00 Resp 22 H 12/14/19 14:52 BP 100/46 L 12/14/19 14:52 Pulse Ox 91 L 12/14/19 15:35 Weight - Most Recent: 103.691 kg - Exam Quality Assessment: Supplemental Oxygen, Central Line/PICC, Urine Catheter, DVT Prophylaxis. No: Skin Breakdown General: Sedated Lungs: Decreased Breath Sounds, Crackles. No: Rales, Wheezing Cardiovascular: Regular Rate, Regular Rhythm. No: Murmurs, Gallops, Rubs GI/Abdominal Exam: Distended, Abnormal Bowel Sounds (hypoactive) Extremities: Other (mild edematous hands) Sepsis Event Note - Evaluation Sepsis Screening Result: No Definite Risk - Focused Exam Vital Signs: Vital Signs Temp Resp BP BP BP Pulse Ox Pulse Ox 12/14/19 15:35 91 L 12/14/19 14:52 98.1 F 22 H 100/46 L 95 12/14/19 14:26 96 12/14/19 11:40 97 12/14/19 10:52 97.2 F 20 99/68 116/55 L 92 L 12/14/19 09:26 89 L 12/14/19 09:20 87 L 12/14/19 09:11 86 L 12/14/19 08:07 98 12/14/19 08:00 99.1 F 22 H 90/51 L 100/48 L 89 L 12/14/19 05:31 22 H 100 12/14/19 05:30 22 H 89/52 L 100 12/14/19 05:29 22 H 100 12/14/19 05:16 22 H 100 12/14/19 05:15 22 H 95/51 L 100 12/14/19 05:14 22 H 100 12/14/19 05:01 22 H 99 12/14/19 05:00 22 H 90/53 L 99 12/14/19 04:59 22 H 99 12/14/19 04:46 22 H 99 12/14/19 04:45 22 H 98/53 L 99 12/14/19 04:44 22 H 99 12/14/19 04:31 22 H 98 98 12/14/19 04:30 22 H 102/54 L 99 12/14/19 04:29 22 H 99 12/14/19 04:16 22 H 100 12/14/19 04:15 22 H 96/54 L 100 12/14/19 04:14 22 H 100 12/14/19 04:01 22 H 99 12/14/19 04:00 98.5 F 22 H 100/56 L 100/56 L 100/46 L 99 12/14/19 03:59 22 H 99 12/14/19 03:46 22 H 99 Date Exam was Performed: 12/14/19 Time Exam was Performed: 16:53 - Problem List & Annotations (1) COVID-19 virus detected SNOMED Code(s): 372324905 Code(s): U07.1 - COVID-19 Status: Acute Current Visit: Yes (2) Acute hypoxemic respiratory failure SNOMED Code(s): 125314435 Code(s): J96.01 - ACUTE RESPIRATORY FAILURE WITH HYPOXIA Status: Acute Current Visit: Yes (3) Acute respiratory distress SNOMED Code(s): 851189251 Code(s): R06.03 - ACUTE RESPIRATORY DISTRESS Status: Acute Priority: High Current Visit: Yes (4) Bilateral pulmonary infiltrates on chest x-ray SNOMED Code(s): 471788270, 310894448 Code(s): R91.8 - OTHER NONSPECIFIC ABNORMAL FINDING OF LUNG FIELD Status: Acute Priority: High Current Visit: Yes (5) Hypoxia SNOMED Code(s): 735878306 Code(s): R09.02 - HYPOXEMIA Status: Acute Priority: High Current Visit : Yes (6) S/P CABG x 1 SNOMED Code(s): 073533547, 317000627, 681445789 Code(s): Z95.1 - PRESENCE OF AORTOCORONARY BYPASS GRAFT Status: Chronic Priority: Medium Current Visit: Yes (7) CAD (coronary artery disease) SNOMED Code(s): 86622832 Code(s): I25.10 - ATHSCL HEART DISEASE OF [place] CORONARY ARTERY W/O ANG PCTRS Status: Chronic Priority: Medium Current Visit: No Qualifiers: Coronary Disease-Associated Artery/Lesion type: bypass graft [place] vs. transplanted heart: [place] heart Associated angina: angina presence unspecified Qualified Code(s): I25.810 - Atherosclerosis of coronary artery bypass graft(s) without angina pectoris (8) GERD (gastroesophageal reflux disease) SNOMED Code(s): 996034481 Code(s): K21.9 - GASTRO-ESOPHAGEAL REFLUX DISEASE WITHOUT ESOPHAGITIS Status: Chronic Priority: Medium Current Visit: No Qualifiers: Esophagitis presence: esophagitis presence not specified Qualified Code(s) : K21.9 - Gastro-esophageal reflux disease without esophagitis (9) H/O aortic valve repair SNOMED Code(s): 787995678532691 Code(s): Z98.890 - OTHER SPECIFIED POSTPROCEDURAL STATES; Z86.79 - PERSONAL HISTORY OF OTHER DISEASES OF THE CIRCULATORY SYSTEM Status: Chronic Priority : Medium Current Visit: No (10) PAD (peripheral artery disease) SNOMED Code(s): 954404817 Code(s): I73.9 - PERIPHERAL VASCULAR DISEASE, UNSPECIFIED Status: Chronic Priority: Medium Current Visit: No (11) Hypoalbuminemia SNOMED Code(s): 924418001 Code(s): E88.09 - OTH DISORDERS OF PLASMA-PROTEIN METABOLISM, NEC Status: Acute Current Visit: Yes (12) Obesity (BMI 30.0-34.9) SNOMED Code(s): 867227233994588 Code(s): E66.9 - OBESITY, UNSPECIFIED Status: Acute Current Visit: Yes (13) HLD (hyperlipidemia) SNOMED Code(s): 61843467 Code(s): E78.5 - HYPERLIPIDEMIA, UNSPECIFIED Status: Chronic Priority: Low Current Visit: No Qualifiers: Hyperlipidemia type: unspecified Qualified Code(s): E78.5 - Hyperlipidemia , unspecified (14) HTN (hypertension) SNOMED Code(s): 27647872 Code(s): I10 - ESSENTIAL (PRIMARY) HYPERTENSION Status: Chronic Priority : Low Current Visit: No Qualifiers: Hypertension type: unspecified Qualified Code(s): I10 - Essential (primary ) hypertension (15) Acute hypercapnic respiratory failure SNOMED Code(s): 337124442 Code(s): J96.02 - ACUTE RESPIRATORY FAILURE WITH HYPERCAPNIA Status: Acute Current Visit: Yes (16) COPD (chronic obstructive pulmonary disease) SNOMED Code(s): 90757859 Code(s): J44.9 - CHRONIC OBSTRUCTIVE PULMONARY DISEASE, UNSPECIFIED Status : Acute Current Visit: Yes (17) Suspected COVID-19 virus infection SNOMED Code(s): 499228623 Code(s): R68.89 - OTHER GENERAL SYMPTOMS AND SIGNS Status: Acute Current Visit: Yes (18) Sepsis SNOMED Code(s): 67223518 Code(s): A41.9 - SEPSIS, UNSPECIFIED ORGANISM Status: Acute Current Visit : Yes (19) ARDS (adult respiratory distress syndrome) SNOMED Code(s): 21222568, 49845318 Code(s): J80 - ACUTE RESPIRATORY DISTRESS SYNDROME Status: Acute Current Visit: Yes (20) Acute respiratory distress syndrome (ARDS) due to 2019 novel coronavirus SNOMED Code(s): 48464641 Code(s): U07.1 - COVID-19; J80 - ACUTE RESPIRATORY DISTRESS SYNDROME Status : Acute Current Visit: Yes (21) Hypophosphatemia SNOMED Code(s): 3561240 Code(s): E83.39 - OTHER DISORDERS OF PHOSPHORUS METABOLISM Status: Acute Current Visit: Yes - Problem List Review Problem List Initiated/Reviewed/Updated: Yes - Plan Plan:: ASSESSMENT BY DAY DAY OF ADMISSION - URI symptoms compatible with COVID19 x 12-14 days - Septic 2/2 PNA with concern for COVID19 - Started on Zosyn and azithromycin - Intubated 2/2 worsening reparatory status - Airborne isolation, Negative pressure room - COVID test obtained at [place] on 12/11/19 - Central line placed DAY 1 - PCO2 is 71 - Adjust vent setting as per ARDS protocol - Reculture fever spike DAY 2 - COVID-19 resulted positive - Patient started on Plaquenil DAY 3 - Runs of SVT at PM that caused some hypoxemia, spontaneously resolved and did not recur - Hypophosphatemia on labs - Significantly positive balance, will give lasix and back down on IVF rate - LFTs stable PLAN BY SYSTEMS: Neurology: Frequent neurologic exams by nursing staff. Continue sedation with Fentanyl and Versed Goal is deep sedation to avoid breathing over the vent. Respiratory: Continue mechanical ventilation. Endotracheal tube care by RT. PRN nebulizations. Regular suctioning. Aspiration precautions. Daily SBT. Repeat CXR as needed. ABGs as needed to evaluate needed for MV parameter adjustments. Maximum isolation precautions. Continue Plaquenil and Zosyn Cardiovascular: Continue Levophed Continue LR at decreased rate Continue vasopressors for now and wean off as tolerated for MAP goal >65 GI and Nutrition: Continue enteral nutrition via OG tube with Osmolite 1.5 OG tube care. Goal rate 50ml/hr Free water flushed 50ml q6h Monitor residuals and adjust tube feedings rate as tolerated. Kidney and Electrolytes: Strict monitoring of intake, output and overall fluid balance. Maintain as neutral as possible. Avoid nephrotoxic medications and renally dosed medications Replace PO4 with NaPO4 60 Mmol x 1 dose Monitor electrolytes and replace as needed. Trend creatinine and BUN. Lasix 40mg IV BID Endocrine: Scheduled Accu-checks. Hypoglycemia protocol in place. Infectious Disease: Trend temperature. Panculture if febrile. Follow up on cultures Continue Plaquenil and Zosyn Procalcitonin every 48 hours Hematology and Coagulation: No active bleeding, no coagulopathy to correct, no need to transfuse blood products at the moment. Goal hemoglobin >7g Musculoskeletal and Skin: Bed turn rotation by nursing staff. Daily evaluation for pressure ulcers. PROPHYLAXIS: DVT- SCD's and Lovenox GI- Pantoprazole CODE STATUS: FULL CODE DISPOSITION: Patient will remain admitted in ICU for mechanical ventilation. Maximum isolation precautions
[2019-12-15] MEDS: Piperacillin/Tazobactam 4.5 GM in Sodium Chloride 0.9% 100 ML IV SCH ×2 (00:06→09:17)
[2019-12-15] MEDS: propofoL 100 ML IV SCH ×6 (00:50→19:29)
[2019-12-15] MEDS: Norepinephrine 4 MG in Dextrose 5% in Water 246 ML IV SCH ×4 (01:45→17:33)
[2019-12-15] MEDS ORDERED: Sodium Chloride 0.9% 250 ML ONE (01:56)
[2019-12-15] MEDS ORDERED: fentaNYL 2500 MCG/50 ML SDV ONE (02:00)
[2019-12-15] MEDS: fentaNYL 2,500 MCG in Sodium Chloride 0.9% 200 ML IV SCH ×3 (02:05→17:33)
[2019-12-15] MEDS: Non-Formulary Medication 1 Each PO SCH (05:24)
[2019-12-15] MEDS: Enoxaparin 40 MG/0.4 ML Syringe SUBCUT SCH (09:19)
[2019-12-15] MEDS: Pantoprazole 40 MG Vial IVPUSH SCH (09:19)
[2019-12-15] MEDS: Lactated Ringers 1,000 ML IV SCH (09:26)
--- NOTE | 2019-12-15 11:34 | PCM.PN ---
- General Info Date of Service: 12/15/19 Subjective Update: INTERVAL HISTORY - O2 sat dropped to low 80's while bathing, was able to get back to 91% - Upper 90's after 2AM Vital Signs: MAP trend: 64-75 HR trend: 69-96x' Tmax: 98.6 SatO2: >85% Drips: Fentanyl Versed LR Propofol Mechanical Ventilation: Intubation day: 12/11/2019 Mode: AC VC Vt: 460 FiO2: 80 PEEP: 15 RR: 22 Ppeak: 32 Pmean: 23 PPlat: 29 Vte: 8.5 Labs: Hb 7.9 Balance: Urine output: 1170 Balance: + 3,274 Balance since admission: + 7,101 BM: 12/10 Infectious Disease: Antibiotics: Zosyn day 5, Plaquenil dose4 out of 6 Cultures: MRSA swab negative COVID19 POSITIVE Diet: Osmolyte 1.5 at 30ml/hr without residuals--> goal 50 50ml free water flushes Lines and tubes: Left subclavian central line 12/10 Right radial arterial line 12/11 Steiner catheter since admission OG tube 12/10 - Patient Data Vitals - Most Recent: Last Vital Signs Temp 97.9 F 12/15/19 08:00 Pulse 81 12/15/19 11:15 Resp 22 H 12/15/19 11:15 BP 96/53 L 12/15/19 08:30 Pulse Ox 95 12/15/19 11:15 Weight - Most Recent: 107.819 kg - Exam Quality Assessment: Supplemental Oxygen, Central Line/PICC, Urine Catheter, DVT Prophylaxis. No: Skin Breakdown General: Sedated HEENT: Pupils Equal, Pupils Reactive, Mucous Membr. Moist/[place]. No: Scleral Icterus Neck: +2 Carotid Pulse wo Bruit. No: Lymphadenopathy Lungs: Decreased Breath Sounds. No: Crackles, Rales, Rhonchi, Rub, Wheezing Cardiovascular: Regular Rate, Regular Rhythm. No: Murmurs, Gallops, Rubs GI/Abdominal Exam: Distended, Abnormal Bowel Sounds (hypoactive). No: Rigid, Rebound Extremities: Pedal Edema. No: Joint Swelling Skin: Dry Sepsis Event Note - Evaluation Sepsis Screening Result: No Definite Risk - Focused Exam Vital Signs: Vital Signs Temp Pulse Resp BP BP BP Pulse Ox 12/15/19 11:15 81 22 H 95 12/15/19 11:00 73 22 H 95 12/15/19 10:45 73 22 H 94 L 12/15/19 10:30 73 22 H 93 L 12/15/19 10:15 73 22 H 91 L 12/15/19 10:00 73 22 H 90 L 12/15/19 09:56 12/15/19 09:47 12/15/19 09:45 71 22 H 96 12/15/19 09:30 73 22 H 96 12/15/19 09:15 72 96 12/15/19 09:00 72 96 12/15/19 08:31 96 12/15/19 08:30 96/53 L 97 12/15/19 08:29 97 12/15/19 08:16 98 12/15/19 08:15 97/53 L 98 12/15/19 08:14 99 12/15/19 08:13 12/15/19 08:01 98 12/15/19 08:00 97.9 F 22 H 96/52 L 97/42 L 96 12/15/19 07:59 98 12/15/19 07:46 98 12/15/19 07:45 96/54 L 99 12/15/19 07:44 99 12/15/19 07:31 98 12/15/19 07:30 98/54 L 99 12/15/19 07:29 98 12/15/19 07:16 98 12/15/19 07:15 97/53 L 98 12/15/19 07:14 98 12/15/19 07:01 98 12/15/19 07:00 102/53 L 99 12/15/19 06:59 99 12/15/19 06:46 98 12/15/19 06:45 103/54 L 98 12/15/19 06:44 98 12/15/19 06:31 98 12/15/19 06:30 99/56 L 98 12/15/19 06:29 97 12/15/19 06:22 12/15/19 06:16 95 12/15/19 06:15 85/51 L 95 12/15/19 06:14 94 L 12/15/19 06:01 91 L 12/15/19 06:00 83/49 L 90 L 12/15/19 05:59 90 L 12/15/19 05:46 86/53 L 96 12/15/19 05:45 96 12/15/19 05:31 97 12/15/19 05:30 113/60 97 12/15/19 05:29 97 12/15/19 05:16 22 H 96 12/15/19 05:15 22 H 105/57 L 95 12/15/19 05:14 22 H 96 12/15/19 05:01 22 H 95 12/15/19 05:00 22 H 102/61 95 12/15/19 04:59 22 H 95 12/15/19 04:46 22 H 95 12/15/19 04:45 22 H 105/59 L 95 12/15/19 04:44 22 H 95 12/15/19 04:35 12/15/19 04:31 22 H 94 L 12/15/19 04:30 22 H 104/57 L 93 L 12/15/19 04:29 22 H 93 L 12/15/19 04:16 22 H 94 L 12/15/19 04:15 22 H 107/61 94 L 12/15/19 04:14 25 H 95 12/15/19 04:01 22 H 92 L 12/15/19 04:00 97.2 F 22 H 91/52 L 91/52 L 114/52 L 92 L 12/15/19 03:59 22 H 92 L 12/15/19 03:46 22 H 94 L 12/15/19 03:45 22 H 103/55 L 93 L 12/15/19 03:44 22 H 93 L 12/15/19 03:31 22 H 94 L 12/15/19 03:30 22 H 107/55 L 94 L 12/15/19 03:29 22 H 94 L 12/15/19 03:16 22 H 94 L 12/15/19 03:15 22 H 107/60 94 L 12/15/19 03:14 22 H 94 L 12/15/19 03:01 22 H 93 L 12/15/19 03:00 22 H 106/60 93 L 12/15/19 02:59 22 H 93 L 12/15/19 02:46 22 H 94 L 12/15/19 02:45 22 H 107/56 L 94 L 12/15/19 02:44 22 H 94 L 12/15/19 02:31 22 H 94 L 12/15/19 02:30 22 H 105/56 L 94 L 12/15/19 02:29 22 H 94 L 12/15/19 02:20 12/15/19 02:16 22 H 95 12/15/19 02:15 22 H 108/53 L 95 12/15/19 02:14 22 H 94 L 12/15/19 01:46 22 H 92 L 12/15/19 01:45 22 H 95/53 L 92 L 12/15/19 01:44 22 H 92 L 12/15/19 01:31 22 H 92 L 12/15/19 01:30 22 H 92/51 L 92 L 12/15/19 01:29 22 H 92 L 12/15/19 01:16 22 H 93 L 12/15/19 01:15 22 H 106/56 L 93 L 12/15/19 01:14 22 H 93 L 12/15/19 01:01 22 H 92 L 12/15/19 01:00 22 H 105/57 L 91 L 12/15/19 00:59 22 H 91 L 12/15/19 00:46 22 H 90 L 12/15/19 00:45 22 H 108/58 L 90 L 12/15/19 00:44 22 H 90 L 12/15/19 00:31 22 H 91 L 12/15/19 00:30 22 H 106/58 L 91 L 12/15/19 00:29 22 H 92 L 12/15/19 00:16 11 L 94 L 12/15/19 00:15 18 123/54 L 94 L 12/15/19 00:14 22 H 93 L 12/15/19 00:01 23 H 83 L 12/15/19 00:00 100.3 F 22 H 91/56 L 91/56 L 113/51 L 82 L 12/14/19 23:59 18 81 L 12/14/19 23:45 89 L 12/14/19 23:31 22 H 97 12/14/19 23:30 22 H 108/58 L 97 12/14/19 23:29 22 H 97 Pulse Ox 12/15/19 11:15 12/15/19 11:00 12/15/19 10:45 12/15/19 10:30 12/15/19 10:15 12/15/19 10:00 12/15/19 09:56 89 L 12/15/19 09:47 96 12/15/19 09:45 12/15/19 09:30 12/15/19 09:15 12/15/19 09:00 12/15/19 08:31 12/15/19 08:30 12/15/19 08:29 12/15/19 08:16 12/15/19 08:15 12/15/19 08:14 12/15/19 08:13 98 12/15/19 08:01 12/15/19 08:00 12/15/19 07:59 12/15/19 07:46 12/15/19 07:45 12/15/19 07:44 12/15/19 07:31 12/15/19 07:30 12/15/19 07:29 12/15/19 07:16 12/15/19 07:15 12/15/19 07:14 12/15/19 07:01 12/15/19 07:00 12/15/19 06:59 12/15/19 06:46 12/15/19 06:45 12/15/19 06:44 12/15/19 06:31 12/15/19 06:30 12/15/19 06:29 12/15/19 06:22 95 12/15/19 06:16 12/15/19 06:15 12/15/19 06:14 12/15/19 06:01 12/15/19 06:00 12/15/19 05:59 12/15/19 05:46 12/15/19 05:45 12/15/19 05:31 12/15/19 05:30 12/15/19 05:29 12/15/19 05:16 12/15/19 05:15 12/15/19 05:14 12/15/19 05:01 12/15/19 05:00 12/15/19 04:59 12/15/19 04:46 12/15/19 04:45 12/15/19 04:44 12/15/19 04:35 94 L 12/15/19 04:31 12/15/19 04:30 12/15/19 04:29 12/15/19 04:16 12/15/19 04:15 12/15/19 04:14 12/15/19 04:01 12/15/19 04:00 12/15/19 03:59 12/15/19 03:46 12/15/19 03:45 12/15/19 03:44 12/15/19 03:31 12/15/19 03:30 12/15/19 03:29 12/15/19 03:16 12/15/19 03:15 12/15/19 03:14 12/15/19 03:01 12/15/19 03:00 12/15/19 02:59 12/15/19 02:46 12/15/19 02:45 12/15/19 02:44 12/15/19 02:31 12/15/19 02:30 12/15/19 02:29 12/15/19 02:20 95 12/15/19 02:16 12/15/19 02:15 12/15/19 02:14 12/15/19 01:46 12/15/19 01:45 12/15/19 01:44 12/15/19 01:31 12/15/19 01:30 12/15/19 01:29 12/15/19 01:16 12/15/19 01:15 12/15/19 01:14 12/15/19 01:01 12/15/19 01:00 12/15/19 00:59 12/15/19 00:46 12/15/19 00:45 12/15/19 00:44 12/15/19 00:31 12/15/19 00:30 12/15/19 00:29 12/15/19 00:16 12/15/19 00:15 12/15/19 00:14 91 L 12/15/19 00:01 12/15/19 00:00 12/14/19 23:59 12/14/19 23:45 12/14/19 23:31 12/14/19 23:30 12/14/19 23:29 Date Exam was Performed: 12/15/19 Time Exam was Performed: 12:02 - Problem List & Annotations (1) COVID-19 virus detected SNOMED Code(s): 128699096 Code(s): U07.1 - COVID-19 Status: Acute Current Visit: Yes (2) Acute hypoxemic respiratory failure SNOMED Code(s): 742733349 Code(s): J96.01 - ACUTE RESPIRATORY FAILURE WITH HYPOXIA Status: Acute Current Visit: Yes (3) Acute respiratory distress SNOMED Code(s): 548521987 Code(s): R06.03 - ACUTE RESPIRATORY DISTRESS Status: Acute Priority: High Current Visit: Yes (4) Bilateral pulmonary infiltrates on chest x-ray SNOMED Code(s): 817221221, 834102960 Code(s): R91.8 - OTHER NONSPECIFIC ABNORMAL FINDING OF LUNG FIELD Status: Acute Priority: High Current Visit: Yes (5) Hypoxia SNOMED Code(s): 139426038 Code(s): R09.02 - HYPOXEMIA Status: Acute Priority: High Current Visit : Yes (6) S/P CABG x 1 SNOMED Code(s): 619459702, 373291091, 881720205 Code(s): Z95.1 - PRESENCE OF AORTOCORONARY BYPASS GRAFT Status: Chronic Priority: Medium Current Visit: Yes (7) CAD (coronary artery disease) SNOMED Code(s): 39800366 Code(s): I25.10 - ATHSCL HEART DISEASE OF [place] CORONARY ARTERY W/O ANG PCTRS Status: Chronic Priority: Medium Current Visit: No Qualifiers: Coronary Disease-Associated Artery/Lesion type: bypass graft [place] vs. transplanted heart: [place] heart Associated angina: angina presence unspecified Qualified Code(s): I25.810 - Atherosclerosis of coronary artery bypass graft(s) without angina pectoris (8) GERD (gastroesophageal reflux disease) SNOMED Code(s): 237381794 Code(s): K21.9 - GASTRO-ESOPHAGEAL REFLUX DISEASE WITHOUT ESOPHAGITIS Status: Chronic Priority: Medium Current Visit: No Qualifiers: Esophagitis presence: esophagitis presence not specified Qualified Code(s) : K21.9 - Gastro-esophageal reflux disease without esophagitis (9) H/O aortic valve repair SNOMED Code(s): 095627653553012 Code(s): Z98.890 - OTHER SPECIFIED POSTPROCEDURAL STATES; Z86.79 - PERSONAL HISTORY OF OTHER DISEASES OF THE CIRCULATORY SYSTEM Status: Chronic Priority : Medium Current Visit: No (10) PAD (peripheral artery disease) SNOMED Code(s): 139276550 Code(s): I73.9 - PERIPHERAL VASCULAR DISEASE, UNSPECIFIED Status: Chronic Priority: Medium Current Visit: No (11) Hypoalbuminemia SNOMED Code(s): 240783934 Code(s): E88.09 - OTH DISORDERS OF PLASMA-PROTEIN METABOLISM, NEC Status: Acute Current Visit: Yes (12) Obesity (BMI 30.0-34.9) SNOMED Code(s): 869916955092659 Code(s): E66.9 - OBESITY, UNSPECIFIED Status: Acute Current Visit: Yes (13) HLD (hyperlipidemia) SNOMED Code(s): 56570909 Code(s): E78.5 - HYPERLIPIDEMIA, UNSPECIFIED Status: Chronic Priority: Low Current Visit: No Qualifiers: Hyperlipidemia type: unspecified Qualified Code(s): E78.5 - Hyperlipidemia , unspecified (14) HTN (hypertension) SNOMED Code(s): 22119992 Code(s): I10 - ESSENTIAL (PRIMARY) HYPERTENSION Status: Chronic Priority : Low Current Visit: No Qualifiers: Hypertension type: unspecified Qualified Code(s): I10 - Essential (primary ) hypertension (15) Acute hypercapnic respiratory failure SNOMED Code(s): 824006280 Code(s): J96.02 - ACUTE RESPIRATORY FAILURE WITH HYPERCAPNIA Status: Acute Current Visit: Yes (16) COPD (chronic obstructive pulmonary disease) SNOMED Code(s): 62842535 Code(s): J44.9 - CHRONIC OBSTRUCTIVE PULMONARY DISEASE, UNSPECIFIED Status : Acute Current Visit: Yes (17) Suspected COVID-19 virus infection SNOMED Code(s): 521854151 Code(s): R68.89 - OTHER GENERAL SYMPTOMS AND SIGNS Status: Acute Current Visit: Yes (18) Sepsis SNOMED Code(s): 31380375 Code(s): A41.9 - SEPSIS, UNSPECIFIED ORGANISM Status: Acute Current Visit : Yes (19) ARDS (adult respiratory distress syndrome) SNOMED Code(s): 84902679, 59950868 Code(s): J80 - ACUTE RESPIRATORY DISTRESS SYNDROME Status: Acute Current Visit: Yes (20) Acute respiratory distress syndrome (ARDS) due to 2019 novel coronavirus SNOMED Code(s): 55175733 Code(s): U07.1 - COVID-19; J80 - ACUTE RESPIRATORY DISTRESS SYNDROME Status : Acute Current Visit: Yes (21) Hypophosphatemia SNOMED Code(s): 9924589 Code(s): E83.39 - OTHER DISORDERS OF PHOSPHORUS METABOLISM Status: Acute Current Visit: Yes - Problem List Review Problem List Initiated/Reviewed/Updated: Yes - Plan Plan:: ASSESSMENT BY DAY DAY OF ADMISSION - URI symptoms compatible with COVID19 x 12-14 days - Septic 2/2 PNA with concern for COVID19 - Started on Zosyn and azithromycin - Intubated 2/2 worsening reparatory status - Airborne isolation, Negative pressure room - COVID test obtained at [place] on 12/11/19 - Central line placed DAY 1 - PCO2 is 71 - Adjust vent setting as per ARDS protocol - Reculture fever spike DAY 2 - COVID-19 resulted positive - Patient started on Plaquenil DAY 3 - Runs of SVT at PM that caused some hypoxemia, spontaneously resolved and did not recur - Hypophosphatemia on labs - Significantly positive balance, will give lasix and back down on IVF rate - LFTs stable DAY 4 - Episode of hypoxemia in the evening that required changes in mechanical ventilation settings--> stabilized PLAN BY SYSTEMS: Neurology: Continue sedation with Fentanyl, Propofol and Versed Goal is deep sedation to avoid breathing over the vent. Respiratory: Continue mechanical ventilation. Endotracheal tube care by RT. PRN nebulizations. Regular suctioning. Aspiration precautions. Daily SBT. Repeat CXR as needed. ABGs as needed to evaluate needed for MV parameter adjustments. Maximum isolation precautions. Continue Plaquenil Discontinue Zosyn Cardiovascular: Continue Levophed Continue vasopressors for now and wean off as tolerated for MAP goal >65 GI and Nutrition: Continue enteral nutrition via OG tube with Osmolite 1.5 at 30ml/hr OG tube care. Goal rate 50ml/hr Free water flushed 50ml q6h Monitor residuals and adjust tube feedings rate as tolerated. Kidney and Electrolytes: Strict monitoring of intake, output and overall fluid balance. Maintain as neutral as possible. Avoid nephrotoxic medications and renally dosed medications Monitor electrolytes and replace as needed. Trend creatinine and BUN. Continue Lasix 40mg IV BID Endocrine: Scheduled Accu-checks. Hypoglycemia protocol in place. Infectious Disease: Trend temperature. Panculture if febrile. Follow up on cultures Continue Plaquenil Procalcitonin every 48 hours Discontinue Zosyn Hematology and Coagulation: No active bleeding, no coagulopathy to correct, no need to transfuse blood products at the moment. Goal hemoglobin >7g Musculoskeletal and Skin: Bed turn rotation by nursing staff. Daily evaluation for pressure ulcers. PROPHYLAXIS: DVT- SCD's and Lovenox GI- Pantoprazole CODE STATUS: FULL CODE DISPOSITION: Patient will remain admitted in ICU for mechanical ventilation. Maximum isolation precautions
[2019-12-15] MEDS: Acetaminophen 650 MG Supp RECTAL PRN (17:40)
[2019-12-16] MEDS: propofoL 100 ML IV SCH ×3 (02:17→18:27)
[2019-12-16] MEDS: fentaNYL 2,500 MCG in Sodium Chloride 0.9% 200 ML IV SCH (03:55)
[2019-12-16] MEDS: Non-Formulary Medication 1 Each PO SCH (05:37)
[2019-12-16] MEDS: Norepinephrine 4 MG in Dextrose 5% in Water 246 ML IV SCH ×2 (07:32)
[2019-12-16] MEDS: Enoxaparin 40 MG/0.4 ML Syringe SUBCUT SCH (08:09)
[2019-12-16] MEDS: Pantoprazole 40 MG Vial IVPUSH SCH (08:09)
--- NOTE | 2019-12-16 20:09 | PCM.PN ---
- General Info Date of Service: 12/16/19 Subjective Update: INTERVAL HISTORY - O2 sat dropped to 75 around 8PM, responded to temporary increase in FiO2 Vital Signs: BP trend: 79-108/40-52 HR trend: 71-87 Tmax: 102.8 SatO2: 90-98% Drips: Fentanyl Versed Propofol Levophed Mechanical Ventilation: Intubation day: 12/11/2019 Mode: AC VC Vt: 460 FiO2: 80 PEEP: 15 RR: 22 Ppeak: 32 Pmean: 23 PPlat: 29 Vte: 8.5 Labs: SvOs improved from 70.1 to 83.1 Balance: Urine output: 1170 Balance: + 3,288 Balance since admission: + 10,506 BM: 12/10 Infectious Disease: Antibiotics: Zosyn day 6, Plaquenil dose5 out of 6 Cultures: MRSA swab negative COVID19 POSITIVE Diet: Osmolyte 1.5 at 30ml/hr without residuals--> goal 50 50ml free water flushes Lines and tubes: Left subclavian central line 12/10 Right radial arterial line 12/11 Steiner catheter since admission OG tube 12/10 - Patient Data Vitals - Most Recent: Last Vital Signs Temp 98.4 F 12/16/19 19:39 Pulse 94 12/16/19 19:39 Resp 22 H 12/16/19 19:39 BP 132/56 L 12/16/19 19:39 Pulse Ox 94 L 12/16/19 19:39 Weight - Most Recent: 112.627 kg - Exam Physical Findings Comments:: Quality Assessment: Supplemental Oxygen, Central Line/PICC, Urine Catheter, DVT Prophylaxis. No: Skin Breakdown General: Sedated HEENT: Pupils Equal, Pupils Reactive, Mucous Membr. Moist/[place]. No: Scleral Icterus Neck: +2 Carotid Pulse wo Bruit. No: Lymphadenopathy Lungs: Decreased Breath Sounds. No: Crackles, Rales, Rhonchi, Rub, Wheezing Cardiovascular: Regular Rate, Regular Rhythm. No: Murmurs, Gallops, Rubs GI/Abdominal Exam: Distended, Abnormal Bowel Sounds (hypoactive). No: Rigid, Rebound Extremities: Pedal Edema. No: Joint Swelling Skin: Dry Sepsis Event Note - Evaluation Sepsis Screening Result: No Definite Risk - Focused Exam Vital Signs: Vital Signs Temp Pulse Pulse Resp BP Pulse Ox Pulse Ox 12/16/19 19:39 98.4 F 94 22 H 132/56 L 94 L 12/16/19 18:45 92 22 H 96 12/16/19 18:30 92 22 H 95 12/16/19 18:15 92 22 H 95 12/16/19 18:00 90 22 H 95 12/16/19 17:45 91 22 H 95 12/16/19 17:30 91 22 H 95 12/16/19 17:15 91 22 H 95 12/16/19 17:00 92 22 H 95 12/16/19 16:45 92 22 H 94 L 12/16/19 16:30 92 22 H 94 L 12/16/19 16:15 97 22 H 92 L 12/16/19 16:00 98.8 F 93 22 H 130/55 L 92 L 12/16/19 15:45 92 22 H 91 L 12/16/19 15:30 92 22 H 94 L 12/16/19 15:15 92 22 H 94 L 12/16/19 15:00 91 22 H 95 12/16/19 14:45 93 22 H 94 L 12/16/19 14:30 93 22 H 94 L 12/16/19 14:15 92 22 H 94 L 12/16/19 14:00 92 22 H 93 L 12/16/19 13:45 91 22 H 94 L 12/16/19 13:30 91 22 H 93 L 12/16/19 13:17 95 12/16/19 13:15 90 22 H 95 12/16/19 13:00 90 22 H 95 12/16/19 12:45 88 22 H 95 12/16/19 12:30 89 22 H 95 12/16/19 12:15 88 22 H 95 12/16/19 12:00 89 22 H 95 12/16/19 11:45 90 22 H 94 L 12/16/19 11:31 95 12/16/19 11:30 87 22 H 95 12/16/19 11:15 88 20 96 12/16/19 11:09 98.8 F 22 H 120/51 L 95 12/16/19 11:00 86 22 H 95 12/16/19 10:45 83 22 H 95 12/16/19 10:30 85 22 H 95 12/16/19 10:15 84 22 H 95 12/16/19 10:14 95 12/16/19 10:00 84 22 H 93 L 12/16/19 09:45 87 22 H 96 12/16/19 09:30 86 22 H 96 12/16/19 09:15 86 22 H 96 12/16/19 09:00 86 22 H 96 12/16/19 08:45 86 22 H 96 12/16/19 08:30 86 22 H 95 12/16/19 08:15 86 22 H 96 Date Exam was Performed: 12/16/19 Time Exam was Performed: 20:10 - Problem List & Annotations (1) COVID-19 virus detected SNOMED Code(s): 976097312 Code(s): U07.1 - COVID-19 Status: Acute Current Visit: Yes (2) Acute hypoxemic respiratory failure SNOMED Code(s): 555017998 Code(s): J96.01 - ACUTE RESPIRATORY FAILURE WITH HYPOXIA Status: Acute Current Visit: Yes (3) Acute respiratory distress SNOMED Code(s): 217416502 Code(s): R06.03 - ACUTE RESPIRATORY DISTRESS Status: Acute Priority: High Current Visit: Yes (4) Bilateral pulmonary infiltrates on chest x-ray SNOMED Code(s): 171216032, 411575645 Code(s): R91.8 - OTHER NONSPECIFIC ABNORMAL FINDING OF LUNG FIELD Status: Acute Priority: High Current Visit: Yes (5) Hypoxia SNOMED Code(s): 435744944 Code(s): R09.02 - HYPOXEMIA Status: Acute Priority: High Current Visit : Yes (6) S/P CABG x 1 SNOMED Code(s): 771710131, 454463965, 186132621 Code(s): Z95.1 - PRESENCE OF AORTOCORONARY BYPASS GRAFT Status: Chronic Priority: Medium Current Visit: Yes (7) CAD (coronary artery disease) SNOMED Code(s): 85483321 Code(s): I25.10 - ATHSCL HEART DISEASE OF [place] CORONARY ARTERY W/O ANG PCTRS Status: Chronic Priority: Medium Current Visit: No Qualifiers: Coronary Disease-Associated Artery/Lesion type: bypass graft [place] vs. transplanted heart: [place] heart Associated angina: angina presence unspecified Qualified Code(s): I25.810 - Atherosclerosis of coronary artery bypass graft(s) without angina pectoris (8) GERD (gastroesophageal reflux disease) SNOMED Code(s): 185318884 Code(s): K21.9 - GASTRO-ESOPHAGEAL REFLUX DISEASE WITHOUT ESOPHAGITIS Status: Chronic Priority: Medium Current Visit: No Qualifiers: Esophagitis presence: esophagitis presence not specified Qualified Code(s) : K21.9 - Gastro-esophageal reflux disease without esophagitis (9) H/O aortic valve repair SNOMED Code(s): 566258881339554 Code(s): Z98.890 - OTHER SPECIFIED POSTPROCEDURAL STATES; Z86.79 - PERSONAL HISTORY OF OTHER DISEASES OF THE CIRCULATORY SYSTEM Status: Chronic Priority : Medium Current Visit: No (10) PAD (peripheral artery disease) SNOMED Code(s): 010638015 Code(s): I73.9 - PERIPHERAL VASCULAR DISEASE, UNSPECIFIED Status: Chronic Priority: Medium Current Visit: No (11) Hypoalbuminemia SNOMED Code(s): 897129912 Code(s): E88.09 - OTH DISORDERS OF PLASMA-PROTEIN METABOLISM, NEC Status: Acute Current Visit: Yes (12) Obesity (BMI 30.0-34.9) SNOMED Code(s): 444584393075127 Code(s): E66.9 - OBESITY, UNSPECIFIED Status: Acute Current Visit: Yes (13) HLD (hyperlipidemia) SNOMED Code(s): 48179741 Code(s): E78.5 - HYPERLIPIDEMIA, UNSPECIFIED Status: Chronic Priority: Low Current Visit: No Qualifiers: Hyperlipidemia type: unspecified Qualified Code(s): E78.5 - Hyperlipidemia , unspecified (14) HTN (hypertension) SNOMED Code(s): 72288648 Code(s): I10 - ESSENTIAL (PRIMARY) HYPERTENSION Status: Chronic Priority : Low Current Visit: No Qualifiers: Hypertension type: unspecified Qualified Code(s): I10 - Essential (primary ) hypertension (15) Acute hypercapnic respiratory failure SNOMED Code(s): 584779615 Code(s): J96.02 - ACUTE RESPIRATORY FAILURE WITH HYPERCAPNIA Status: Acute Current Visit: Yes (16) COPD (chronic obstructive pulmonary disease) SNOMED Code(s): 70081456 Code(s): J44.9 - CHRONIC OBSTRUCTIVE PULMONARY DISEASE, UNSPECIFIED Status : Acute Current Visit: Yes (17) Suspected COVID-19 virus infection SNOMED Code(s): 192887683 Code(s): R68.89 - OTHER GENERAL SYMPTOMS AND SIGNS Status: Acute Current Visit: Yes (18) Sepsis SNOMED Code(s): 30633194 Code(s): A41.9 - SEPSIS, UNSPECIFIED ORGANISM Status: Acute Current Visit : Yes (19) ARDS (adult respiratory distress syndrome) SNOMED Code(s): 16129218, 26203000 Code(s): J80 - ACUTE RESPIRATORY DISTRESS SYNDROME Status: Acute Current Visit: Yes (20) Acute respiratory distress syndrome (ARDS) due to 2019 novel coronavirus SNOMED Code(s): 86697733 Code(s): U07.1 - COVID-19; J80 - ACUTE RESPIRATORY DISTRESS SYNDROME Status : Acute Current Visit: Yes (21) Hypophosphatemia SNOMED Code(s): 4991508 Code(s): E83.39 - OTHER DISORDERS OF PHOSPHORUS METABOLISM Status: Acute Current Visit: Yes - Problem List Review Problem List Initiated/Reviewed/Updated: Yes - Plan Plan:: ASSESSMENT BY DAY DAY OF ADMISSION - URI symptoms compatible with COVID19 x 12-14 days - Septic 2/2 PNA with concern for COVID19 - Started on Zosyn and azithromycin - Intubated 2/2 worsening reparatory status - Airborne isolation, Negative pressure room - COVID test obtained at [place] on 12/11/19 - Central line placed DAY 1 - PCO2 is 71 - Adjust vent setting as per ARDS protocol - Reculture fever spike DAY 2 - COVID-19 resulted positive - Patient started on Plaquenil DAY 3 - Runs of SVT at PM that caused some hypoxemia, spontaneously resolved and did not recur - Hypophosphatemia on labs - Significantly positive balance, will give lasix and back down on IVF rate - LFTs stable DAY 4 - Episode of hypoxemia in the evening that required changes in mechanical ventilation settings--> stabilized DAY 5 - Plaquenil dose 5, pending one more dose - Balance + 10L - Central venous O2 better - Fever spike --> pancultured, pending PLAN BY SYSTEMS: Neurology: Continue sedation with Fentanyl, Propofol and Versed Goal is deep sedation, RAAS -5, to avoid breathing over the vent. Respiratory: Continue mechanical ventilation. Endotracheal tube care by RT. PRN nebulizations. Regular suctioning. Aspiration precautions. Daily SBT. Repeat CXR as needed. ABGs as needed to evaluate needed for MV parameter adjustments. Maximum isolation precautions. Continue Plaquenil dose 5/6 Cardiovascular: Continue Levophed Continue vasopressors for now and wean off as tolerated for MAP goal >65 GI and Nutrition: Continue enteral nutrition via OG tube with Osmolite 1.5 at 30ml/hr OG tube care. Goal rate 50ml/hr Free water flushed 50ml q6h Monitor residuals and adjust tube feedings rate as tolerated. Kidney and Electrolytes: Strict monitoring of intake, output and overall fluid balance. Maintain as neutral as possible. Avoid nephrotoxic medications and renally dosed medications Monitor electrolytes and replace as needed. Trend creatinine and BUN. Continue Lasix 40mg IV BID Endocrine: Scheduled Accu-checks. Hypoglycemia protocol in place. Infectious Disease: Trend temperature. Panculture if febrile. Follow up on cultures Continue Plaquenil dose 5/6 Procalcitonin every 48 hours Hematology and Coagulation: No active bleeding, no coagulopathy to correct, no need to transfuse blood products at the moment. Goal hemoglobin >7g Musculoskeletal and Skin: Bed turn rotation by nursing staff. Daily evaluation for pressure ulcers. PROPHYLAXIS: DVT- SCD's and Lovenox GI- Pantoprazole CODE STATUS: FULL CODE DISPOSITION: Patient will remain admitted in ICU for mechanical ventilation. Maximum isolation precautions
[2019-12-17] MEDS: propofoL 100 ML IV SCH (04:16)
[2019-12-17] MEDS: fentaNYL 2,500 MCG in Sodium Chloride 0.9% 200 ML IV SCH ×2 (04:17→17:21)
[2019-12-17] MEDS: Non-Formulary Medication 1 Each PO SCH (05:28)
[2019-12-17] MEDS: Pantoprazole 40 MG Vial IVPUSH SCH (08:22)
[2019-12-17] MEDS: Enoxaparin 40 MG/0.4 ML Syringe SUBCUT SCH (08:23)
--- NOTE | 2019-12-17 08:29 | PCM.PN ---
- General Info Date of Service: 12/17/19 Subjective Update: INTERVAL HISTORY - Tachycardia from 2200 to 2355 which resolved spontaneously, sinus tachycardia - Levophed off since 19:40 Vital Signs: MAP trend: 65-89 HR trend: 80-107 Tmax: 98.8 SatO2: >94% Drips: Fentanyl 10 Versed 5 Propofol Mechanical Ventilation: Intubation day: 12/11/2019 Mode: AC VC Vt: 440 FiO2: 55 PEEP: 14 RR: 34 Labs: GFR 41 to 29 Ferritin 2190--> 1790 T bili 2.8-->1.5 Balance: Urine output: 650 Balance: + 1,521 Balance since admission: + 11,138 BM: 12/10 Infectious Disease: Antibiotics: Completed Zosyn and Plaquenil Cultures: MRSA swab negative COVID19 POSITIVE Blood cultured from admission negative x days Blood cultures from 10/15 negative x 1 day Diet: Osmolyte 1.5 at 50ml/hr without residuals--> at goal 50ml free water flushes Lines and tubes: Left subclavian central line 12/10 Right radial arterial line 12/11 Steiner catheter 12/10 OG tube 12/10 - Patient Data Vitals - Most Recent: Last Vital Signs Temp 97.7 F 12/17/19 04:00 Pulse 96 12/17/19 07:00 Resp 22 H 12/17/19 05:52 BP 133/60 12/17/19 07:00 Pulse Ox 94 L 12/17/19 05:52 Weight - Most Recent: 112.672 kg - Exam Quality Assessment: Supplemental Oxygen (confounded by body habitus), Central Line/PICC General: Sedated HEENT: Pupils Equal, Pupils Reactive Neck: Supple Lungs: Decreased Breath Sounds Cardiovascular: Murmurs GI/Abdominal Exam: Distended, Abnormal Bowel Sounds. No: Rigid (Male) Exam: Scrotal Swelling, Other (foreskin edema, stigmas of bleeding in meatus). No: Circumcised Extremities: Normal Inspection, Pedal Edema Sepsis Event Note - Evaluation Sepsis Screening Result: No Definite Risk - Focused Exam Vital Signs: Vital Signs Temp Pulse Resp BP Pulse Ox Pulse Ox 12/17/19 07:00 96 133/60 12/17/19 05:52 93 22 H 123/57 L 94 L 12/17/19 05:00 94 22 H 128/59 L 96 12/17/19 04:00 97.7 F 97 22 H 132/60 96 12/17/19 03:00 99 22 H 141/63 H 94 L 12/17/19 02:36 22 H 94 L 12/17/19 01:54 102 H 153/66 H 12/17/19 01:00 100 139/64 12/17/19 00:45 22 H 96 12/17/19 00:00 98.1 F 98 22 H 133/63 96 12/16/19 23:00 98 131/63 12/16/19 22:02 22 H 94 L 12/16/19 21:41 103 H 22 H 143/62 H 93 L 12/16/19 21:00 100 22 H 142/61 H 92 L Date Exam was Performed: 12/17/19 Time Exam was Performed: 14:32 - Problem List & Annotations (1) COVID-19 virus detected SNOMED Code(s): 102447304 Code(s): U07.1 - COVID-19 Status: Acute Current Visit: Yes (2) Acute hypoxemic respiratory failure SNOMED Code(s): 339993370 Code(s): J96.01 - ACUTE RESPIRATORY FAILURE WITH HYPOXIA Status: Acute Current Visit: Yes (3) Acute respiratory distress SNOMED Code(s): 488215836 Code(s): R06.03 - ACUTE RESPIRATORY DISTRESS Status: Acute Priority: High Current Visit: Yes (4) Bilateral pulmonary infiltrates on chest x-ray SNOMED Code(s): 807508214, 482448408 Code(s): R91.8 - OTHER NONSPECIFIC ABNORMAL FINDING OF LUNG FIELD Status: Acute Priority: High Current Visit: Yes (5) Hypoxia SNOMED Code(s): 874506593 Code(s): R09.02 - HYPOXEMIA Status: Acute Priority: High Current Visit : Yes (6) S/P CABG x 1 SNOMED Code(s): 335675935, 670226867, 310349209 Code(s): Z95.1 - PRESENCE OF AORTOCORONARY BYPASS GRAFT Status: Chronic Priority: Medium Current Visit: Yes (7) CAD (coronary artery disease) SNOMED Code(s): 26035547 Code(s): I25.10 - ATHSCL HEART DISEASE OF [place] CORONARY ARTERY W/O ANG PCTRS Status: Chronic Priority: Medium Current Visit: No Qualifiers: Coronary Disease-Associated Artery/Lesion type: bypass graft [place] vs. transplanted heart: [place] heart Associated angina: angina presence unspecified Qualified Code(s): I25.810 - Atherosclerosis of coronary artery bypass graft(s) without angina pectoris (8) GERD (gastroesophageal reflux disease) SNOMED Code(s): 208172110 Code(s): K21.9 - GASTRO-ESOPHAGEAL REFLUX DISEASE WITHOUT ESOPHAGITIS Status: Chronic Priority: Medium Current Visit: No Qualifiers: Esophagitis presence: esophagitis presence not specified Qualified Code(s) : K21.9 - Gastro-esophageal reflux disease without esophagitis (9) H/O aortic valve repair SNOMED Code(s): 327940464609120 Code(s): Z98.890 - OTHER SPECIFIED POSTPROCEDURAL STATES; Z86.79 - PERSONAL HISTORY OF OTHER DISEASES OF THE CIRCULATORY SYSTEM Status: Chronic Priority : Medium Current Visit: No (10) PAD (peripheral artery disease) SNOMED Code(s): 560875610 Code(s): I73.9 - PERIPHERAL VASCULAR DISEASE, UNSPECIFIED Status: Chronic Priority: Medium Current Visit: No (11) Hypoalbuminemia SNOMED Code(s): 607633084 Code(s): E88.09 - OTH DISORDERS OF PLASMA-PROTEIN METABOLISM, NEC Status: Acute Current Visit: Yes (12) Obesity (BMI 30.0-34.9) SNOMED Code(s): 892808634869134 Code(s): E66.9 - OBESITY, UNSPECIFIED Status: Acute Current Visit: Yes (13) HLD (hyperlipidemia) SNOMED Code(s): 78276311 Code(s): E78.5 - HYPERLIPIDEMIA, UNSPECIFIED Status: Chronic Priority: Low Current Visit: No Qualifiers: Hyperlipidemia type: unspecified Qualified Code(s): E78.5 - Hyperlipidemia , unspecified (14) HTN (hypertension) SNOMED Code(s): 61567712 Code(s): I10 - ESSENTIAL (PRIMARY) HYPERTENSION Status: Chronic Priority : Low Current Visit: No Qualifiers: Hypertension type: unspecified Qualified Code(s): I10 - Essential (primary ) hypertension (15) Acute hypercapnic respiratory failure SNOMED Code(s): 665803950 Code(s): J96.02 - ACUTE RESPIRATORY FAILURE WITH HYPERCAPNIA Status: Acute Current Visit: Yes (16) COPD (chronic obstructive pulmonary disease) SNOMED Code(s): 03975825 Code(s): J44.9 - CHRONIC OBSTRUCTIVE PULMONARY DISEASE, UNSPECIFIED Status : Acute Current Visit: Yes (17) Suspected COVID-19 virus infection SNOMED Code(s): 925199718 Code(s): R68.89 - OTHER GENERAL SYMPTOMS AND SIGNS Status: Acute Current Visit: Yes (18) Sepsis SNOMED Code(s): 61747890 Code(s): A41.9 - SEPSIS, UNSPECIFIED ORGANISM Status: Acute Current Visit : Yes (19) ARDS (adult respiratory distress syndrome) SNOMED Code(s): 43858395, 86420638 Code(s): J80 - ACUTE RESPIRATORY DISTRESS SYNDROME Status: Acute Current Visit: Yes (20) Acute respiratory distress syndrome (ARDS) due to 2019 novel coronavirus SNOMED Code(s): 88680026 Code(s): U07.1 - COVID-19; J80 - ACUTE RESPIRATORY DISTRESS SYNDROME Status : Acute Current Visit: Yes (21) Hypophosphatemia SNOMED Code(s): 0338286 Code(s): E83.39 - OTHER DISORDERS OF PHOSPHORUS METABOLISM Status: Acute Current Visit: Yes (22) Acute kidney injury SNOMED Code(s): 77127689, 82968775 Code(s): N17.9 - ACUTE KIDNEY FAILURE, UNSPECIFIED Status: Acute Current Visit: Yes - Problem List Review Problem List Initiated/Reviewed/Updated: Yes - Plan Plan:: ASSESSMENT BY DAY DAY OF ADMISSION - URI symptoms compatible with COVID19 x 12-14 days - Septic 2/2 PNA with concern for COVID19 - Started on Zosyn and azithromycin - Intubated 2/2 worsening reparatory status - Airborne isolation, Negative pressure room - COVID test obtained at [facility] on 12/11/19 - Central line placed DAY 1 - PCO2 is 71 - Adjust vent setting as per ARDS protocol - Reculture fever spike DAY 2 - COVID-19 resulted positive - Patient started on Plaquenil DAY 3 - Runs of SVT at PM that caused some hypoxemia, spontaneously resolved and did not recur - Hypophosphatemia on labs - Significantly positive balance, will give lasix and back down on IVF rate - LFTs stable DAY 4 - Episode of hypoxemia in the evening that required changes in mechanical ventilation settings--> stabilized DAY 5 - Plaquenil dose 5, pending one more dose - Balance + 10L - Central venous O2 better - Fever spike --> pancultured, pending DAY 6 - Ferritin down from 2190 to 1790 - Troponin improved - Pro BNP worse - GFR down from 41 to 29 with decreased overall urine output in 24 hours - NO significant ventilatory changes - Completed plaquenil and Zosyn PLAN BY SYSTEMS: Neurology: Continue sedation with Fentanyl, Propofol and Versed Goal is deep sedation, RAAS -5, to avoid breathing over the vent. Respiratory: Continue mechanical ventilation. Endotracheal tube care by RT. PRN nebulizations. Regular suctioning. Aspiration precautions. Daily SBT. Repeat CXR as needed. ABGs as needed to evaluate needed for MV parameter adjustments. Maximum isolation precautions. Cardiovascular: Continue Levophed Continue vasopressors for now and wean off as tolerated for MAP goal >65 GI and Nutrition: Continue enteral nutrition via OG tube with Osmolite 1.5 at goal, 50ml/hr OG tube care. Free water flushed 50ml q6h Monitor residuals and adjust tube feedings rate as tolerated. Kidney and Electrolytes: Strict monitoring of intake, output and overall fluid balance. Maintain as neutral as possible. Avoid nephrotoxic medications and renally dosed medications Monitor electrolytes and replace as needed. Trend creatinine and BUN. Urine Na, Cr and BUN UA to evaluate sediment Endocrine: Scheduled Accu-checks. Hypoglycemia protocol in place. Infectious Disease: Trend temperature. Panculture if febrile. Follow up on cultures Procalcitonin every 48 hours Hematology and Coagulation: No active bleeding, no coagulopathy to correct, no need to transfuse blood products at the moment. Goal hemoglobin >7g Musculoskeletal and Skin: Bed turn rotation by nursing staff. Daily evaluation for pressure ulcers. PROPHYLAXIS: DVT- SCD's and Lovenox GI- Pantoprazole CODE STATUS: FULL CODE DISPOSITION: Patient will remain admitted in ICU for mechanical ventilation. Maximum isolation precautions
[2019-12-17] MEDS ORDERED: Furosemide 40 MG/4 ML VIAL IVPUSH SCH (20:15)
[2019-12-18] MEDS: propofoL 100 ML IV SCH ×2 (03:05→16:28)
[2019-12-18] MEDS: Enoxaparin 40 MG/0.4 ML Syringe SUBCUT SCH (08:16)
[2019-12-18] MEDS: Pantoprazole 40 MG Vial IVPUSH SCH (08:16)
[2019-12-18] MEDS: Furosemide 40 MG/4 ML VIAL IVPUSH SCH ×2 (08:16→20:08)
[2019-12-18] MEDS: fentaNYL 2,500 MCG in Sodium Chloride 0.9% 200 ML IV SCH ×2 (08:17→18:45)
--- NOTE | 2019-12-18 14:34 | PCM.PN ---
- General Info Date of Service: 12/18/19 Subjective Update: INTERVAL HISTORY Vital Signs: MAP trend: 79-89 HR trend: 93-102 Temp trend: >99.1 SatO2: >94% Drips: Fentanyl 2 Versed 5 Propofol 10 Mechanical Ventilation: Intubation day: 12/11/2019 Mode: AC VC Vt: 460 FiO2: 65 PEEP: 15 RR: 22 Labs: GFR stable 29 Ferritin 2190--> 1790-->2003 Balance: Urine output: 870 (up from 650) Balance: + 358 Balance since admission: + 10,412 BM: 12/16 Infectious Disease: Antibiotics: Completed Zosyn and Plaquenil Cultures: MRSA swab negative COVID19 POSITIVE Blood cultured from admission negative x 7days Blood cultures from 12/14 negative x 2 day Diet: Jevity 1.2 at 50ml/hr without residuals--> at goal 50ml free water flushes Lines and tubes: Left subclavian central line 12/10 Right radial arterial line 12/11 Steiner catheter 12/10 OG tube 12/10 - Patient Data Vitals - Most Recent: Last Vital Signs Temp 100.0 F 12/18/19 13:00 Pulse 99 12/17/19 17:15 Resp 22 H 12/18/19 13:00 BP 128/56 L 12/18/19 13:00 Pulse Ox 94 L 12/18/19 14:05 Weight - Most Recent: 111.629 kg - Exam Quality Assessment: Supplemental Oxygen, Central Line/PICC, Urine Catheter, DVT Prophylaxis. No: Skin Breakdown General: Sedated HEENT: Pupils Equal, Pupils Reactive Neck: Trachea Midline Lungs: Decreased Breath Sounds. No: Crackles, Rales, Rhonchi, Rub, Wheezing Cardiovascular: Regular Rhythm, Tachycardia. No: Murmurs, Gallops, Rubs GI/Abdominal Exam: Distended, Abnormal Bowel Sounds (hypoactive). No: Rigid Extremities: Pedal Edema, Slow Capillary Refill Skin: Warm, Moist Sepsis Event Note - Evaluation Sepsis Screening Result: Severe Sepsis Risk - Focused Exam Vital Signs: Vital Signs Temp Resp BP Pulse Ox Pulse Ox 12/18/19 14:05 94 L 12/18/19 13:00 100.0 F 22 H 128/56 L 94 L 12/18/19 12:27 95 12/18/19 12:00 100.0 F 22 H 128/56 L 94 L 12/18/19 11:00 22 H 134/61 97 12/18/19 10:22 98 12/18/19 10:00 22 H 130/60 97 12/18/19 09:03 92 L 12/18/19 09:00 22 H 131/60 97 12/18/19 08:00 99.1 F 22 H 138/58 L 96 12/18/19 07:00 18 146/61 H 96 12/18/19 06:04 22 H 96 12/18/19 06:00 22 H 140/60 96 12/18/19 05:00 22 H 96 12/18/19 04:00 100.2 F 22 H 143/60 H 95 12/18/19 03:00 22 H 95 12/18/19 02:54 22 H 96 Date Exam was Performed: 12/19/19 Time Exam was Performed: 12:22 - Problem List & Annotations (1) COVID-19 virus detected SNOMED Code(s): 028671431 Code(s): U07.1 - COVID-19 Status: Acute Current Visit: Yes (2) Acute hypoxemic respiratory failure SNOMED Code(s): 314320128 Code(s): J96.01 - ACUTE RESPIRATORY FAILURE WITH HYPOXIA Status: Acute Current Visit: Yes (3) Acute respiratory distress SNOMED Code(s): 456174043 Code(s): R06.03 - ACUTE RESPIRATORY DISTRESS Status: Acute Priority: High Current Visit: Yes (4) Bilateral pulmonary infiltrates on chest x-ray SNOMED Code(s): 937895746, 570246190 Code(s): R91.8 - OTHER NONSPECIFIC ABNORMAL FINDING OF LUNG FIELD Status: Acute Priority: High Current Visit: Yes (5) Hypoxia SNOMED Code(s): 847389275 Code(s): R09.02 - HYPOXEMIA Status: Acute Priority: High Current Visit : Yes (6) S/P CABG x 1 SNOMED Code(s): 726587084, 273070087, 523765815 Code(s): Z95.1 - PRESENCE OF AORTOCORONARY BYPASS GRAFT Status: Chronic Priority: Medium Current Visit: Yes (7) CAD (coronary artery disease) SNOMED Code(s): 49628351 Code(s): I25.10 - ATHSCL HEART DISEASE OF [place] CORONARY ARTERY W/O ANG PCTRS Status: Chronic Priority: Medium Current Visit: No Qualifiers: Coronary Disease-Associated Artery/Lesion type: bypass graft [place] vs. transplanted heart: [place] heart Associated angina: angina presence unspecified Qualified Code(s): I25.810 - Atherosclerosis of coronary artery bypass graft(s) without angina pectoris (8) GERD (gastroesophageal reflux disease) SNOMED Code(s): 699709818 Code(s): K21.9 - GASTRO-ESOPHAGEAL REFLUX DISEASE WITHOUT ESOPHAGITIS Status: Chronic Priority: Medium Current Visit: No Qualifiers: Esophagitis presence: esophagitis presence not specified Qualified Code(s) : K21.9 - Gastro-esophageal reflux disease without esophagitis (9) H/O aortic valve repair SNOMED Code(s): 010241159321649 Code(s): Z98.890 - OTHER SPECIFIED POSTPROCEDURAL STATES; Z86.79 - PERSONAL HISTORY OF OTHER DISEASES OF THE CIRCULATORY SYSTEM Status: Chronic Priority : Medium Current Visit: No (10) PAD (peripheral artery disease) SNOMED Code(s): 577900999 Code(s): I73.9 - PERIPHERAL VASCULAR DISEASE, UNSPECIFIED Status: Chronic Priority: Medium Current Visit: No (11) Hypoalbuminemia SNOMED Code(s): 564030996 Code(s): E88.09 - OTH DISORDERS OF PLASMA-PROTEIN METABOLISM, NEC Status: Acute Current Visit: Yes (12) Obesity (BMI 30.0-34.9) SNOMED Code(s): 379364589284577 Code(s): E66.9 - OBESITY, UNSPECIFIED Status: Acute Current Visit: Yes (13) HLD (hyperlipidemia) SNOMED Code(s): 99843106 Code(s): E78.5 - HYPERLIPIDEMIA, UNSPECIFIED Status: Chronic Priority: Low Current Visit: No Qualifiers: Hyperlipidemia type: unspecified Qualified Code(s): E78.5 - Hyperlipidemia , unspecified (14) HTN (hypertension) SNOMED Code(s): 50150719 Code(s): I10 - ESSENTIAL (PRIMARY) HYPERTENSION Status: Chronic Priority : Low Current Visit: No Qualifiers: Hypertension type: unspecified Qualified Code(s): I10 - Essential (primary ) hypertension (15) Acute hypercapnic respiratory failure SNOMED Code(s): 746625585 Code(s): J96.02 - ACUTE RESPIRATORY FAILURE WITH HYPERCAPNIA Status: Acute Current Visit: Yes (16) COPD (chronic obstructive pulmonary disease) SNOMED Code(s): 97322263 Code(s): J44.9 - CHRONIC OBSTRUCTIVE PULMONARY DISEASE, UNSPECIFIED Status : Acute Current Visit: Yes (17) Suspected COVID-19 virus infection SNOMED Code(s): 766574850 Code(s): R68.89 - OTHER GENERAL SYMPTOMS AND SIGNS Status: Acute Current Visit: Yes (18) Sepsis SNOMED Code(s): 49712573 Code(s): A41.9 - SEPSIS, UNSPECIFIED ORGANISM Status: Acute Current Visit : Yes (19) ARDS (adult respiratory distress syndrome) SNOMED Code(s): 15859776, 40408871 Code(s): J80 - ACUTE RESPIRATORY DISTRESS SYNDROME Status: Acute Current Visit: Yes (20) Acute respiratory distress syndrome (ARDS) due to 2019 novel coronavirus SNOMED Code(s): 47069589 Code(s): U07.1 - COVID-19; J80 - ACUTE RESPIRATORY DISTRESS SYNDROME Status : Acute Current Visit: Yes (21) Hypophosphatemia SNOMED Code(s): 2863857 Code(s): E83.39 - OTHER DISORDERS OF PHOSPHORUS METABOLISM Status: Acute Current Visit: Yes (22) Acute kidney injury SNOMED Code(s): 73959441, 92571695 Code(s): N17.9 - ACUTE KIDNEY FAILURE, UNSPECIFIED Status: Acute Current Visit: Yes (23) Hypermagnesemia SNOMED Code(s): 55857203 Code(s): E83.41 - HYPERMAGNESEMIA Status: Acute Current Visit: Yes (24) Myocarditis due to COVID-19 virus SNOMED Code(s): 298070581 Code(s): U07.1 - COVID-19; I40.0 - INFECTIVE MYOCARDITIS Status: Acute Current Visit: Yes (25) Septic shock SNOMED Code(s): 01341990 Code(s): A41.9 - SEPSIS, UNSPECIFIED ORGANISM; R65.21 - SEVERE SEPSIS WITH SEPTIC SHOCK Status: Acute Current Visit: Yes (26) Paroxysmal SVT (supraventricular tachycardia) SNOMED Code(s): 43372370 Code(s): I47.1 - SUPRAVENTRICULAR TACHYCARDIA Status: Acute Current Visit : Yes (27) Hypernatremia SNOMED Code(s): 199438257 Code(s): E87.0 - HYPEROSMOLALITY AND HYPERNATREMIA Status: Acute Current Visit: Yes (28) Hyperkalemia SNOMED Code(s): 33163837 Code(s): E87.5 - HYPERKALEMIA Status: Acute Current Visit: Yes - Problem List Review Problem List Initiated/Reviewed/Updated: Yes - Plan Plan:: ASSESSMENT BY DAY DAY OF ADMISSION - URI symptoms compatible with COVID19 x 12-14 days - Septic 2/2 PNA with concern for COVID19 - Started on Zosyn and azithromycin - Intubated 2/2 worsening reparatory status - Airborne isolation, Negative pressure room - COVID test obtained at [facility] on 12/11/19 - Central line placed DAY 1 - PCO2 is 71 - Adjust vent setting as per ARDS protocol - Reculture fever spike DAY 2 - COVID-19 resulted positive - Patient started on Plaquenil DAY 3 - Runs of SVT at PM that caused some hypoxemia, spontaneously resolved and did not recur - Hypophosphatemia on labs - Significantly positive balance, will give lasix and back down on IVF rate - LFTs stable DAY 4 - Episode of hypoxemia in the evening that required changes in mechanical ventilation settings--> stabilized DAY 5 - Plaquenil dose 5, pending one more dose - Balance + 10L - Central venous O2 better - Fever spike --> pancultured, pending DAY 6 - Ferritin down from 2190 to 1790 - Troponin improved - Pro BNP worse - GFR down from 41 to 29 with decreased overall urine output in 24 hours - NO significant ventilatory changes - Completed plaquenil and Zosyn DAY 7 - Multiple episodes of SVT in the evening lasting a couple of minutes with minimal response to 3 doses of 12mg of Adenosine, gave IV metoprolol and started on PO metoprolol tartrate - Echocardiogram ordered to evaluate for COVID myocarditis, BNP continues to worsen - Urine output minimally increased after 1 lasix dose - Cultures negative so far - Tube feeds at goal PLAN BY SYSTEMS: Neurology: Continue sedation with Fentanyl, Propofol and Versed Goal is deep sedation, RAAS -5, to avoid breathing over the vent. Respiratory: Continue mechanical ventilation. Endotracheal tube care by RT. PRN nebulizations. Regular suctioning. Aspiration precautions. Daily SBT. Repeat CXR as needed. ABGs as needed to evaluate needed for MV parameter adjustments. Maximum isolation precautions. Cardiovascular: Continue Levophed Continue vasopressors for now and wean off as tolerated for MAP goal >65 Started Metoprolol tartrate PRN metoprolol IV PRN Adenosine Echocardiogram ordered, pending result GI and Nutrition: Continue enteral nutrition via OG tube with Jevity 1.2 at goal, 50ml/hr OG tube care. Free water flushed 50ml q6h Monitor residuals and adjust tube feedings rate as tolerated. Kidney and Electrolytes: Strict monitoring of intake, output and overall fluid balance. Maintain as neutral as possible. Avoid nephrotoxic medications and renally dosed medications Monitor electrolytes and replace as needed. Trend creatinine and BUN. Scheduled IV lasix Infectious Disease: Trend temperature. Panculture if febrile. Follow up on cultures, negative so far Procalcitonin every 48 hours Hematology and Coagulation: No active bleeding, no coagulopathy to correct, no need to transfuse blood products at the moment. Goal hemoglobin >7g Musculoskeletal and Skin: Bed turn rotation by nursing staff. Daily evaluation for pressure ulcers. PROPHYLAXIS: DVT- SCD's and Lovenox GI- Pantoprazole CODE STATUS: FULL CODE DISPOSITION: Patient will remain admitted in ICU for mechanical ventilation. Maximum isolation precautions
--- NOTE | 2019-12-18 14:41 | CR ---
Chest: Portable view of the chest was obtained. Comparison: Previous chest x-ray of 12/11/19. Heart size is normal. Upper mediastinum is normal. Patchy areas of increased density are seen within both sides of the chest which remain stable. Sternotomy is noted. Endotracheal tube is seen with tip lying midway between the clavicles and jomar. Nasogastric tube is seen with tip lying within the region of the stomach. Impression: 1. Increased density within both sides of the chest with cardiomegaly. Findings are fairly stable from previous exam. 2. Satisfactory position of the nasogastric tube and endotracheal tube. Diagnostic code #3 This report was dictated in [facility]
[2019-12-18] MEDS ORDERED: Adenosine 12 MG/4 ML SDV ONE (23:01)
[2019-12-19] MEDS ORDERED: Adenosine 6 MG/2 ML SDV IVPUSH ONE ×2 (02:30→23:02)
[2019-12-19] MEDS ORDERED: Adenosine 12 MG/4 ML SDV ONE ×2 (02:42→23:00)
[2019-12-19] MEDS ORDERED: Metoprolol Tartrate 5 MG/5 ML SDV ONE (02:42)
[2019-12-19] MEDS: Metoprolol Tartrate 5 MG/5 ML SDV IVPUSH PRN ×4 (02:45→23:30)
[2019-12-19] MEDS ORDERED: Metoprolol Tartrate 5 MG in Sodium Chloride 0.9% 50 ML IV PRN (02:47)
[2019-12-19] MEDS ORDERED: Metoprolol Tartrate 25 MG Tab PO SCH ×2 (03:00→21:00)
[2019-12-19] MEDS: propofoL 100 ML IV SCH (06:19)
[2019-12-19] MEDS: fentaNYL 2,500 MCG in Sodium Chloride 0.9% 200 ML IV SCH ×2 (08:01→23:29)
[2019-12-19] MEDS: Enoxaparin 40 MG/0.4 ML Syringe SUBCUT SCH (08:02)
[2019-12-19] MEDS: Furosemide 40 MG/4 ML VIAL IVPUSH SCH (08:02)
[2019-12-19] MEDS: Pantoprazole 40 MG Vial IVPUSH SCH (08:02)
--- NOTE | 2019-12-19 08:09 | PCM.PN ---
- General Info Date of Service: 12/19/19 Subjective Update: INTERVAL HISTORY - SVT episode that lasted 4-5min, required 3 doses of adenosine, did get hypoxemic during episode - Gave IV metoprolol and started on scheduled metoprolol tartrate PO Vital Signs: MAP trend: 80-90 HR trend: 104-124 Tmax: 100.2 SatO2: >93% Drips: Fentanyl 2 Versed 5 Propofol 10 Mechanical Ventilation: Intubation day: 12/11/2019 Mode: AC VC Vt: 460 FiO2: 65 PEEP: 15 RR: 22 Labs: GFR down from 29 to 26 Na up 149-->153 K 5.1--> 5.3 Troponin 0.514 Elevated procalcitonin 12/16 CRP, LDH, proBNP and ferritin continue to increase Balance: Urine output: 2,000 Balance: - 1,247 Balance since admission: + 9,165 BM: 12/16 Infectious Disease: Antibiotics: Completed Zosyn and Plaquenil Cultures: MRSA swab negative COVID19 POSITIVE Blood cultured from admission negative x 7days Blood cultures from 12/14 negative x 2 day Diet: Jevity 1.2 at 50ml/hr without residuals--> at goal 50ml free water flushes Lines and tubes: Left subclavian central line 12/10 Right radial arterial line 12/11 Steiner catheter 12/10 OG tube 12/10 - Patient Data Vitals - Most Recent: Last Vital Signs Temp 101.3 F H 12/19/19 06:00 Pulse 108 H 12/19/19 06:21 Resp 22 H 12/19/19 07:00 BP 112/50 L 12/19/19 07:00 Pulse Ox 95 12/19/19 07:00 Weight - Most Recent: 111.8 kg - Exam Quality Assessment: Supplemental Oxygen, Central Line/PICC, Urine Catheter, DVT Prophylaxis General: Sedated HEENT: Pupils Equal, Pupils Reactive, Mucous Membr. Moist/[place] Neck: Trachea Midline, No JVD. No: Lymphadenopathy Lungs: Decreased Breath Sounds, Crackles. No: Rales, Rhonchi, Rub, Stridor, Wheezing Cardiovascular: Regular Rhythm, Tachycardia. No: Murmurs, Gallops, Rubs GI/Abdominal Exam: Normal Bowel Sounds, Distended. No: Rigid (Male) Exam: Other (edematous foreskin). No: Circumcised Extremities: Pedal Edema (non pitting), Slow Capillary Refill, Pallor Sepsis Event Note - Evaluation Sepsis Screening Result: Severe Sepsis Risk - Focused Exam Vital Signs: Vital Signs Temp Pulse Resp BP BP Pulse Ox Pulse Ox 12/19/19 07:00 22 H 112/50 L 95 12/19/19 06:21 108 H 129/56 L 12/19/19 06:00 101.3 F H 22 H 111/49 L 94 L 12/19/19 05:39 96 12/19/19 05:00 22 H 114/52 L 97 12/19/19 04:36 94 L 12/19/19 04:00 100.3 F 22 H 108/51 L 96 12/19/19 03:00 99.7 F 22 H 111/51 L 94 L 12/19/19 02:58 100 112/51 L 12/19/19 02:55 99.5 F 22 H 110/52 L 100 12/19/19 02:45 135 H 120/50 L 12/19/19 02:00 22 H 137/60 94 L 12/19/19 01:40 94 L 12/19/19 01:35 94 L 12/19/19 01:00 22 H 135/59 L 93 L 12/19/19 00:00 98.9 F 35 H 133/61 95 12/18/19 23:00 22 H 133/61 95 12/18/19 22:12 95 12/18/19 22:00 22 H 132/59 L 95 12/18/19 21:00 22 H 134/60 95 12/18/19 20:10 95 Date Exam was Performed: 12/19/19 Time Exam was Performed: 14:08 - Problem List & Annotations (1) COVID-19 virus detected SNOMED Code(s): 511221367 Code(s): U07.1 - COVID-19 Status: Acute Current Visit: Yes (2) Acute hypoxemic respiratory failure SNOMED Code(s): 863817168 Code(s): J96.01 - ACUTE RESPIRATORY FAILURE WITH HYPOXIA Status: Acute Current Visit: Yes (3) Acute respiratory distress SNOMED Code(s): 918173317 Code(s): R06.03 - ACUTE RESPIRATORY DISTRESS Status: Acute Priority: High Current Visit: Yes (4) Bilateral pulmonary infiltrates on chest x-ray SNOMED Code(s): 084696698, 133736086 Code(s): R91.8 - OTHER NONSPECIFIC ABNORMAL FINDING OF LUNG FIELD Status: Acute Priority: High Current Visit: Yes (5) Hypoxia SNOMED Code(s): 890269559 Code(s): R09.02 - HYPOXEMIA Status: Acute Priority: High Current Visit : Yes (6) S/P CABG x 1 SNOMED Code(s): 969476975, 303059282, 020507894 Code(s): Z95.1 - PRESENCE OF AORTOCORONARY BYPASS GRAFT Status: Chronic Priority: Medium Current Visit: Yes (7) CAD (coronary artery disease) SNOMED Code(s): 59382283 Code(s): I25.10 - ATHSCL HEART DISEASE OF [place] CORONARY ARTERY W/O ANG PCTRS Status: Chronic Priority: Medium Current Visit: No Qualifiers: Coronary Disease-Associated Artery/Lesion type: bypass graft [place] vs. transplanted heart: [place] heart Associated angina: angina presence unspecified Qualified Code(s): I25.810 - Atherosclerosis of coronary artery bypass graft(s) without angina pectoris (8) GERD (gastroesophageal reflux disease) SNOMED Code(s): 644026381 Code(s): K21.9 - GASTRO-ESOPHAGEAL REFLUX DISEASE WITHOUT ESOPHAGITIS Status: Chronic Priority: Medium Current Visit: No Qualifiers: Esophagitis presence: esophagitis presence not specified Qualified Code(s) : K21.9 - Gastro-esophageal reflux disease without esophagitis (9) H/O aortic valve repair SNOMED Code(s): 188930673845759 Code(s): Z98.890 - OTHER SPECIFIED POSTPROCEDURAL STATES; Z86.79 - PERSONAL HISTORY OF OTHER DISEASES OF THE CIRCULATORY SYSTEM Status: Chronic Priority : Medium Current Visit: No (10) PAD (peripheral artery disease) SNOMED Code(s): 677340208 Code(s): I73.9 - PERIPHERAL VASCULAR DISEASE, UNSPECIFIED Status: Chronic Priority: Medium Current Visit: No (11) Hypoalbuminemia SNOMED Code(s): 555281995 Code(s): E88.09 - OTH DISORDERS OF PLASMA-PROTEIN METABOLISM, NEC Status: Acute Current Visit: Yes (12) Obesity (BMI 30.0-34.9) SNOMED Code(s): 944136934071723 Code(s): E66.9 - OBESITY, UNSPECIFIED Status: Acute Current Visit: Yes (13) HLD (hyperlipidemia) SNOMED Code(s): 39467304 Code(s): E78.5 - HYPERLIPIDEMIA, UNSPECIFIED Status: Chronic Priority: Low Current Visit: No Qualifiers: Hyperlipidemia type: unspecified Qualified Code(s): E78.5 - Hyperlipidemia , unspecified (14) HTN (hypertension) SNOMED Code(s): 83635092 Code(s): I10 - ESSENTIAL (PRIMARY) HYPERTENSION Status: Chronic Priority : Low Current Visit: No Qualifiers: Hypertension type: unspecified Qualified Code(s): I10 - Essential (primary ) hypertension (15) Acute hypercapnic respiratory failure SNOMED Code(s): 509807813 Code(s): J96.02 - ACUTE RESPIRATORY FAILURE WITH HYPERCAPNIA Status: Acute Current Visit: Yes (16) COPD (chronic obstructive pulmonary disease) SNOMED Code(s): 88868809 Code(s): J44.9 - CHRONIC OBSTRUCTIVE PULMONARY DISEASE, UNSPECIFIED Status : Acute Current Visit: Yes (17) Suspected COVID-19 virus infection SNOMED Code(s): 960999022 Code(s): R68.89 - OTHER GENERAL SYMPTOMS AND SIGNS Status: Acute Current Visit: Yes (18) Sepsis SNOMED Code(s): 59339356 Code(s): A41.9 - SEPSIS, UNSPECIFIED ORGANISM Status: Acute Current Visit : Yes (19) ARDS (adult respiratory distress syndrome) SNOMED Code(s): 39634308, 42400603 Code(s): J80 - ACUTE RESPIRATORY DISTRESS SYNDROME Status: Acute Current Visit: Yes (20) Acute respiratory distress syndrome (ARDS) due to 2019 novel coronavirus SNOMED Code(s): 71235371 Code(s): U07.1 - COVID-19; J80 - ACUTE RESPIRATORY DISTRESS SYNDROME Status : Acute Current Visit: Yes (21) Hypophosphatemia SNOMED Code(s): 8525936 Code(s): E83.39 - OTHER DISORDERS OF PHOSPHORUS METABOLISM Status: Acute Current Visit: Yes (22) Acute kidney injury SNOMED Code(s): 35261780, 88113056 Code(s): N17.9 - ACUTE KIDNEY FAILURE, UNSPECIFIED Status: Acute Current Visit: Yes (23) Hyperkalemia SNOMED Code(s): 71246624 Code(s): E87.5 - HYPERKALEMIA Status: Acute Current Visit: Yes (24) Hypermagnesemia SNOMED Code(s): 84740696 Code(s): E83.41 - HYPERMAGNESEMIA Status: Acute Current Visit: Yes (25) Hypernatremia SNOMED Code(s): 680616250 Code(s): E87.0 - HYPEROSMOLALITY AND HYPERNATREMIA Status: Acute Current Visit: Yes (26) Myocarditis due to COVID-19 virus SNOMED Code(s): 400887167 Code(s): U07.1 - COVID-19; I40.0 - INFECTIVE MYOCARDITIS Status: Acute Current Visit: Yes (27) Paroxysmal SVT (supraventricular tachycardia) SNOMED Code(s): 40317329 Code(s): I47.1 - SUPRAVENTRICULAR TACHYCARDIA Status: Acute Current Visit : Yes - Problem List Review Problem List Initiated/Reviewed/Updated: Yes - Plan Plan:: ASSESSMENT BY DAY DAY OF ADMISSION - URI symptoms compatible with COVID19 x 12-14 days - Septic 2/2 PNA with concern for COVID19 - Started on Zosyn and azithromycin - Intubated 2/2 worsening reparatory status - Airborne isolation, Negative pressure room - COVID test obtained at [place] on 12/11/19 - Central line placed DAY 1 - PCO2 is 71 - Adjust vent setting as per ARDS protocol - Reculture fever spike DAY 2 - COVID-19 resulted positive - Patient started on Plaquenil DAY 3 - Runs of SVT at PM that caused some hypoxemia, spontaneously resolved and did not recur - Hypophosphatemia on labs - Significantly positive balance, will give lasix and back down on IVF rate - LFTs stable DAY 4 - Episode of hypoxemia in the evening that required changes in mechanical ventilation settings--> stabilized DAY 5 - Plaquenil dose 5, pending one more dose - Balance + 10L - Central venous O2 better - Fever spike --> pancultured, pending DAY 6 - Ferritin down from 2190 to 1790 - Troponin improved - Pro BNP worse - GFR down from 41 to 29 with decreased overall urine output in 24 hours - NO significant ventilatory changes - Completed plaquenil and Zosyn DAY 7 - Multiple episodes of SVT in the evening lasting a couple of minutes with minimal response to 3 doses of 12mg of Adenosine, gave IV metoprolol and started on PO metoprolol tartrate - Echocardiogram ordered to evaluate for COVID myocarditis, BNP continues to worsen - Urine output minimally increased after 1 lasix dose - Cultures negative so far - Tube feeds at goal DAY 8 - Patient started on Metoprolol tartrate, 12.5mg BID overnight, HR continues to be in low 100s so dose was increased to 50 BID - Patient had another episode of SVT that responded to adenosine, about 1 hours later patient became hypotensive and requires levophed drip to be restarted again - Patient is currently having refractory hypoxemia, will diurese as much as possible between today and tomorrow to see if placing patient on prone position to ventilate is an appropriate course of management - Depending on feasibility of pronation patient will need adjustment of his tube feeds as per dietary - If patient goes back into SVT will start Amiodarone infusion for short term antiarrhythmic agent - Fever spike, pancultured and started on triple antibiotic coverage for HCAP PLAN BY SYSTEMS: Neurology: Continue sedation with Fentanyl and Versed Discontinue Propofol Start Vecuronium Goal is deep sedation, RAAS -5, to avoid breathing over the vent. Respiratory: Continue mechanical ventilation. Endotracheal tube care by RT. PRN nebulizations. Regular suctioning. Aspiration precautions. Daily SBT. Repeat CXR as needed. ABGs as needed to evaluate needed for MV parameter adjustments. Maximum isolation precautions. Cardiovascular: Continue Levophed Continue vasopressors for now and wean off as tolerated for MAP goal >65 Started Metoprolol tartrate PRN metoprolol IV PRN Adenosine Echocardiogram ordered, pending result Calcium gluconate 1 dose GI and Nutrition: Continue enteral nutrition via OG tube with Jevity 1.2 at goal, 50ml/hr OG tube care. Free water flushes will be increase Monitor residuals and adjust tube feedings rate as tolerated. Kidney and Electrolytes: Strict monitoring of intake, output and overall fluid balance. Maintain as neutral as possible. Avoid nephrotoxic medications and renally dosed medications Monitor electrolytes and replace as needed. Trend creatinine and BUN. Scheduled IV lasix Infectious Disease: Trend temperature. Start Vancomycin, Levaquin and Zosyn F/U on blood, sputum and urine cultures Trend procalcitonin every 48h Hematology and Coagulation: No active bleeding, no coagulopathy to correct, no need to transfuse blood products at the moment. Goal hemoglobin >7g Musculoskeletal and Skin: Bed turn rotation by nursing staff. Daily evaluation for pressure ulcers. PROPHYLAXIS: DVT- SCD's and Lovenox GI- Pantoprazole CODE STATUS: FULL CODE DISPOSITION: Patient will remain admitted in ICU for mechanical ventilation. Maximum isolation precautions
[2019-12-19] MEDS: Acetaminophen 650 MG Supp RECTAL PRN (08:17)
[2019-12-19] MEDS ORDERED: Metoprolol Tartrate 25 MG Tab PO ONE (10:15)
[2019-12-19] MEDS ORDERED: SODIUM PHOSPHATE IV ONE (11:00)
[2019-12-19] MEDS ORDERED: SODIUM CHLORIDE IV ONE (11:00)
[2019-12-19] MEDS: Adenosine 12 MG/4 ML SDV IVPUSH ONE ×2 (11:47→23:06)
[2019-12-19] MEDS ORDERED: Levofloxacin/Dextrose 5%-Water 750 MG in Premix Bag 1 BAG IV SCH (12:00)
[2019-12-19] MEDS: Vancomycin 1 GM, Vancomycin 500 MG in Sodium Chloride 0.9% 250 ML IV SCH (12:07)
[2019-12-19] MEDS ORDERED: Calcium Gluconate 10% 1 GM/10 ML SDV IVPUSH ONE (12:19)
[2019-12-19] MEDS ORDERED: Norepinephrine 16 MG in Dextrose 5% in Water 234 ML IV SCH ×2 (12:30)
[2019-12-19] MEDS: Metoprolol Tartrate 25 MG Tab PO SCH ×2 (12:37→19:33)
[2019-12-19] MEDS ORDERED: Piperacillin/Tazobactam 4.5 GM in Sodium Chloride 0.9% 100 ML IV ONE (13:00)
[2019-12-19] MEDS: Furosemide 100 MG/10 ML SDV IVPUSH SCH ×2 (15:10→19:33)
[2019-12-19] MEDS: VECURONIUM IV SCH ×2 (17:46→23:08)
[2019-12-19] MEDS: NORMAL SALINE IV SCH ×2 (17:46→23:08)
[2019-12-19] MEDS: Piperacillin/Tazobactam 4.5 GM in Sodium Chloride 0.9% 100 ML IV SCH (20:01)
[2019-12-20] MEDS: Furosemide 100 MG/10 ML SDV IVPUSH SCH ×3 (01:02→14:46)
[2019-12-20] MEDS ORDERED: Adenosine 12 MG/4 ML SDV ONE ×2 (01:32→01:36)
[2019-12-20] MEDS ORDERED: Diltiazem 100 MG AdvVial ONE (01:46)
[2019-12-20] MEDS ORDERED: Sodium Chloride 0.9% 100 ML ONE (01:47)
[2019-12-20] MEDS ORDERED: Diltiazem 50 MG/10 ML SDV ONE ×2 (01:49→02:01)
[2019-12-20] MEDS ORDERED: Metoprolol Tartrate 5 MG/5 ML SDV ONE (01:51)
[2019-12-20] MEDS ORDERED: DOPamine/Dextrose 5%-Water 400 MG/250 ML BAG ONE (01:56)
[2019-12-20] MEDS ORDERED: Calcium Chloride 10% 1 GM/10 ML Syringe IV ONE (01:57)
[2019-12-20] MEDS ORDERED: Phenylephrine 1% 10 MG/ML SDV IV SCH (02:30)
[2019-12-20] MEDS ORDERED: PHENYLEPHRINE IV SCH (02:45)
[2019-12-20] MEDS ORDERED: NORMAL SALINE IV SCH (02:45)
[2019-12-20] MEDS: Metoprolol Tartrate 25 MG Tab PO SCH ×2 (02:59→12:58)
[2019-12-20] MEDS ORDERED: DOPamine/Dextrose 5%-Water 400 MG/250 ML BAG IV SCH (03:00)
[2019-12-20] MEDS ORDERED: Diltiazem 100 MG in Sodium Chloride 0.9% 100 ML IV SCH (03:00)
[2019-12-20] MEDS: Phenylephrine 25 MG in Sodium Chloride 0.9% 247.5 ML IV SCH ×2 (04:03→08:19)
[2019-12-20] MEDS: Piperacillin/Tazobactam 4.5 GM in Sodium Chloride 0.9% 100 ML IV SCH ×2 (04:03→12:58)
[2019-12-20] MEDS: NORMAL SALINE IV SCH ×2 (04:06→09:43)
[2019-12-20] MEDS: VECURONIUM IV SCH ×2 (04:06→09:43)
[2019-12-20] MEDS: Pantoprazole 40 MG Vial IVPUSH SCH (08:16)
[2019-12-20] MEDS ORDERED: Enoxaparin 30 MG/0.3 ML Syringe SUBCUT SCH (09:00)
[2019-12-20] MEDS: Acetaminophen 650 MG Supp RECTAL PRN (09:44)
[2019-12-20] MEDS: Vancomycin 1 GM, Vancomycin 500 MG in Sodium Chloride 0.9% 250 ML IV SCH (12:57)
--- NOTE | 2019-12-20 18:19 | PCM.DCSUM1 ---
Discharge Summary - Hospital Course HPI Initial Comments: Niko Bauman is a 64-year-old male patient who presented to ED at the advice of his primary care provider. He states that between 12 to 14 days prior he developed cold-like symptoms and on November 30 was seen at the [facility] with probable lingular pneumonia. He was started on azithromycin and sent home. Last week he began to have more fever, chills, cough, and night sweats. He went to the clinic was found to have oxygen saturations of 79 to 80%. He is also had diarrhea, although he states that this started when he started taking his antibiotic. He states he is lost 16 to 18 pounds in the last 12 days. In the ED he was noted to be febrile with a temp of 101.3, pulse of 86, respirations of 28, blood pressure 132/65. Pulse ox was 86%. EKG is obtained and shows a sinus rhythm with Q waves in V1 and aVL. Chest x-ray is obtained interpreted by Dr. Macias as "1 increased density within both sides of the chest. Some of this could represent pulmonary vascular congestion but multifocal pneumonia is also suspected which could be either bacterial or viral in etiology." Labs were obtained with a normal white count of 7.0. Hemoglobin is 12. Hematocrit 36.2. Platelets are 186. Neutrophils are elevated at 88.8% . Sodium is low at 134. Potassium 4.5. Carbon oxide 23. Gap is high at 16.5. BUN is 14, creatinine 1.0, GFR is greater than 60. Glucose is 119. Calcium is 8.5. AST is 50, ALT is 27, alkaline phosphatase is 53. CRP is elevated at 10.3. Protein is 7.4. Albumin is 3.2. Lactic acid is 1.8. Ferritin is very high at 2719, LDH is very high at 796. He is given Tylenol for fever. COVID test was performed at [facility] prior to coming to the ED. He carries a history of CAD, HLD, hypertension, MA, aortic bovine valve replacement, palpitations, peripheral artery disease, heartburn, arthritis, hyperglycemia, CABG x1, cardiac stenting x4. He is a full code. His PCP is Dr. Tolliver. He subsequently admitted for management of his failed outpatient treatment pneumonia suspected COVID infection. Diagnosis: Stroke: No - Discharge Data Discharge Date: 12/20/19 Discharge Disposition: Condition: - Referral to Home Health Primary Care Physician: PCP None - Patient Summary/Data Consults: Consultations 12/11/19 12:42 Respiratory Care Assess and Treatment [CONS] Routine 12/12/19 10:16 PT Evaluation and Treatment [CONS] Routine Hospital Course: DAY OF ADMISSION - URI symptoms compatible with COVID19 x 12-14 days - Septic 2/2 PNA with concern for COVID19 - Started on Zosyn and azithromycin - Intubated 2/2 worsening reparatory status - Airborne isolation, Negative pressure room - COVID test obtained at [place] [facility] on 12/11/19 - Central line placed DAY 1 - PCO2 is 71 - Adjust vent setting as per ARDS protocol - Reculture fever spike DAY 2 - COVID-19 resulted positive - Patient started on Plaquenil DAY 3 - Runs of SVT at PM that caused some hypoxemia, spontaneously resolved and did not recur - Hypophosphatemia on labs - Significantly positive balance, will give lasix and back down on IVF rate - LFTs stable DAY 4 - Episode of hypoxemia in the evening that required changes in mechanical ventilation settings--> stabilized DAY 5 - Plaquenil dose 5, pending one more dose - Balance + 10L - Central venous O2 better - Fever spike --> pancultured, pending DAY 6 - Ferritin down from 2190 to 1790 - Troponin improved - Pro BNP worse - GFR down from 41 to 29 with decreased overall urine output in 24 hours - NO significant ventilatory changes - Completed plaquenil and Zosyn DAY 7 - Multiple episodes of SVT in the evening lasting a couple of minutes with minimal response to 3 doses of 12mg of Adenosine, gave IV metoprolol and started on PO metoprolol tartrate - Echocardiogram ordered to evaluate for COVID myocarditis, BNP continues to worsen - Urine output minimally increased after 1 lasix dose - Cultures negative so far - Tube feeds at goal DAY 8 - Patient started on Metoprolol tartrate, 12.5mg BID overnight, HR continues to be in low 100s so dose was increased to 50 BID - Patient had another episode of SVT that responded to adenosine, about 1 hours later patient became hypotensive and requires levophed drip to be restarted again - Patient is currently having refractory hypoxemia, will diurese as much as possible between today and tomorrow to see if placing patient on prone position to ventilate is an appropriate course of management - Depending on feasibility of pronation patient will need adjustment of his tube feeds as per dietary - If patient goes back into SVT will start Amiodarone infusion for short term antiarrhythmic agent - Fever spike, pancultured and started on triple antibiotic coverage for HCAP DAY 9 -Overnight patient had another episode of SVT requiring cardioversion x3. He was placed on Ted-Synephrine and quickly maxed out on dose. Patient's family was informed of the worsening condition. As the morning progressed patient's blood pressure dropped again and it was felt it was irreversible drop in blood pressure likely secondary to cardiogenic shock. Patient at 1102. - Discharge Plan *PRESCRIPTION DRUG MONITORING PROGRAM REVIEWED*: No *COPY OF PRESCRIPTION DRUG MONITORING REPORT IN PATIENT MARYAM: No Home Medications: Home Meds Aspirin 81 mg PO DAILY 10/01/17 [History] Calcium Carb/Vitamin D3/Vit K1 [Calcium + D Soft Chewable Tab] 1 tab PO DAILY [History] Clopidogrel Bisulfate [Clopidogrel] 75 mg PO DAILY 10/01/17 [History] Fish Oil/Curtis-3 Fatty Acids [Fish Oil 1,000 MG] 2 gm PO DAILY 10/01/17 [History ] Folic Acid 1 mg PO DAILY 10/01/17 [History] Garlic 1,000 mg PO DAILY 10/01/17 [History] Glucosam/Chondr/Collagn/Hyalur [Glucosamine & Chondroitin Cap] 1 cap PO DAILY [History] Lisinopril 2.5 mg PO DAILY 10/01/17 [History] Pantoprazole Sodium [Protonix] 40 mg PO DAILY 10/01/17 [History] Simvastatin [Zocor] 20 mg PO DAILY 10/01/17 [History] diphenhydrAMINE [Benadryl] 25 mg PO DAILY 10/01/17 [History] Ezetimibe 10 mg PO DAILY 12/11/19 [History] Patient Handouts: Acute Respiratory Distress Syndrome, Adult, Sepsis, Diagnosis , Adult, Coronavirus Information 11/27/19, Community-Acquired Pneumonia, Adult, [id number] Forms: ED Department Discharge Referrals: Daksha Tolliver MD [Physician] - - Discharge Summary/Plan Comment DC Time >30 min.: Yes Discharge Summary/Plan Comment: Patient at 1102 secondary to complications from COVID-19, ARDS, circulatory collapse secondary to mixed shock including distributive and cardiogenic. - General Info Date of Service: 12/20/19 Subjective Update: Prior to patient expiring he was sedated and mechanically ventilated. - Patient Data Vitals - Most Recent: Last Vital Signs Temp 97 F 12/20/19 10:50 Pulse 103 H 12/20/19 10:44 Resp 22 H 12/20/19 10:44 BP 80/69 L 12/20/19 10:54 Pulse Ox 97 12/20/19 10:44 Weight - Most Recent: 247 lb 2.211 oz I&O - Last 24 hours: Intake & Output 12/20/19 12/20/19 12/20/19 06:59 14:59 22:59 Intake Total 739 5041 Output Total 300 90 Balance 439 [id number] Lab Results - Last 24 hrs: Laboratory Results - last 24 hr 12/19/19 12/20/19 12/20/19 Range/Units 21:45 06:00 06:00 WBC 10.17 H (4.23-9.07) K/mm3 RBC 2.86 L (4.63-6.08) M/mm3 Hgb 8.3 L (13.7-17.5) gm/dl Hct 30.0 L (40.1-51.0) % MCV 104.9 H (79.0-92.2) fl MCH 29.0 (25.7-32.2) pg MCHC 27.7 L (32.2-35.5) g/dl RDW Std Deviation 54.5 H (35.1-43.9) fL Plt Count 335 D (163-337) K/mm3 MPV 11.0 (9.4-12.3) fl Neut % (Auto) 80.1 H (34.0-67.9) % Lymph % (Auto) 9.4 L (21.8-53.1) % Hill % (Auto) 6.7 (5.3-12.2) % Eos % (Auto) 0.4 L (0.8-7.0) Baso % (Auto) 0.8 (0.1-1.2) % Neut # (Auto) 8.15 H (1.78-5.38) K/mm3 Lymph # (Auto) 0.96 L (1.32-3.57) K/mm3 Hill # (Auto) 0.68 (0.30-0.82) K/mm3 Eos # (Auto) 0.04 (0.04-0.54) K/mm3 Baso # (Auto) 0.08 (0.01-0.08) K/mm3 Manual Slide Review Abnormal smear PT 13.4 H (9.7-12.0) SECONDS INR 1.24 D-Dimer, Quantitative 8.16 H (0.19-0.50) mg/L Sodium 155 H (136-145) mEq/L Potassium 4.7 (3.5-5.1) mEq/L Chloride 115 H (98-107) mEq/L Carbon Dioxide 37 H (21-32) mEq/L Anion Gap 7.7 (5-15) BUN 85 H (7-18) mg/dL Creatinine 2.8 H (0.7-1.3) mg/dL Est Cr Clr Drug Dosing 26.30 mL/min Estimated GFR (MDRD) 23 (>60) mL/min BUN/Creatinine Ratio 30.4 H (14-18) Glucose 221 H (80-115) mg/dL Calcium 8.5 (8.5-10.1) mg/dL Phosphorus 4.6 (2.6-4.7) mg/dL Magnesium 2.7 H (1.8-2.4) mg/dl Ferritin (26-388) ng/ml Total Bilirubin (0.2-1.0) mg/dL AST (15-37) U/L ALT (16-63) U/L Alkaline Phosphatase (46-116) U/L Lactate Dehydrogenase (85-227) U/L Troponin I (0.00-0.056) ng/mL C-Reactive Protein (<1.0) mg/dL Total Protein (6.4-8.2) g/dl Albumin (3.4-5.0) g/dl Globulin gm/dL Albumin/Globulin Ratio (1-2) Triglycerides (<150) mg/dL 12/20/19 12/20/19 Range/Units 06:00 06:00 WBC (4.23-9.07) K/mm3 RBC (4.63-6.08) M/mm3 Hgb (13.7-17.5) gm/dl Hct (40.1-51.0) % MCV (79.0-92.2) fl MCH (25.7-32.2) pg MCHC (32.2-35.5) g/dl RDW Std Deviation (35.1-43.9) fL Plt Count (163-337) K/mm3 MPV (9.4-12.3) fl Neut % (Auto) (34.0-67.9) % Lymph % (Auto) (21.8-53.1) % Hill % (Auto) (5.3-12.2) % Eos % (Auto) (0.8-7.0) Baso % (Auto) (0.1-1.2) % Neut # (Auto) (1.78-5.38) K/mm3 Lymph # (Auto) (1.32-3.57) K/mm3 Hill # (Auto) (0.30-0.82) K/mm3 Eos # (Auto) (0.04-0.54) K/mm3 Baso # (Auto) (0.01-0.08) K/mm3 Manual Slide Review PT (9.7-12.0) SECONDS INR D-Dimer, Quantitative (0.19-0.50) mg/L Sodium 154 H (136-145) mEq/L Potassium 5.5 H (3.5-5.1) mEq/L Chloride 116 H (98-107) mEq/L Carbon Dioxide 34 H (21-32) mEq/L Anion Gap 9.5 (5-15) BUN 95 H (7-18) mg/dL Creatinine 3.4 H (0.7-1.3) mg/dL Est Cr Clr Drug Dosing 21.66 mL/min Estimated GFR (MDRD) 18 (>60) mL/min BUN/Creatinine Ratio 27.9 H (14-18) Glucose 190 H (80-115) mg/dL Calcium 8.6 (8.5-10.1) mg/dL Phosphorus 5.1 H (2.6-4.7) mg/dL Magnesium 2.8 H (1.8-2.4) mg/dl Ferritin 97049 H (26-388) ng/ml Total Bilirubin 0.9 (0.2-1.0) mg/dL AST 131 H (15-37) U/L ALT 66 H (16-63) U/L Alkaline Phosphatase 61 (46-116) U/L Lactate Dehydrogenase 694 H (85-227) U/L Troponin I 0.718 H* (0.00-0.056) ng/mL C-Reactive Protein 16.5 H* (<1.0) mg/dL Total Protein 6.8 (6.4-8.2) g/dl Albumin 1.7 L (3.4-5.0) g/dl Globulin 5.1 gm/dL Albumin/Globulin Ratio 0.3 L (1-2) Triglycerides 96 (<150) mg/dL ROXI Results - Last 24 hrs: Microbiology 12/19/19 09:30 Aerobic Blood Culture - Preliminary Blood - Venous - Lab Draw NO GROWTH AFTER 1 DAY Anaerobic Blood Culture - Preliminary NO GROWTH AFTER 1 DAY 12/19/19 09:35 Aerobic Blood Culture - Preliminary Blood - Venous NO GROWTH AFTER 1 DAY Anaerobic Blood Culture - Preliminary NO GROWTH AFTER 1 DAY 12/19/19 16:55 Gram Stain - Final Sputum - Induced Sputum Culture - Preliminary 12/19/19 08:45 Aerobic Blood Culture - Preliminary Blood - Venous Gram Positive Cocci In Clustrs Anaerobic Blood Culture - Preliminary NO GROWTH AFTER 1 DAY 12/15/19 18:56 Aerobic Blood Culture - Preliminary Blood - Venous Gram Positive Cocci In Clustrs Anaerobic Blood Culture - Preliminary NO GROWTH AFTER 4 DAYS 12/15/19 18:38 Aerobic Blood Culture - Preliminary Blood NO GROWTH AFTER 4 DAYS Anaerobic Blood Culture - Preliminary NO GROWTH AFTER 4 DAYS 12/12/19 12:19 Aerobic Blood Culture - Final Blood NO GROWTH AFTER 7 DAYS Anaerobic Blood Culture - Final NO GROWTH AFTER 7 DAYS Med Orders - Current: Current Medications Discontinued Medications Acetaminophen (Tylenol) 975 mg PO NOW ONE Stop: 12/11/19 10:30 Last Admin: 12/11/19 10:35 Dose: 975 mg Acetaminophen (Tylenol) 650 mg PO Q4H PRN PRN Reason: Pain (Mild 1-3)/fever Acetaminophen (Tylenol) 650 mg RECTAL Q6H PRN PRN Reason: Fever Last Admin: 12/20/19 09:44 Dose: 650 mg Adenosine (Adenocard) Confirm Administered Dose 6 mg .ROUTE .STK-MED ONE Stop: 12/13/19 19:27 Last Admin: 12/13/19 21:54 Dose: Not Given Adenosine (Adenocard) Confirm Administered Dose 12 mg .ROUTE .STK-MED ONE Stop: 12/13/19 19:27 Last Admin: 12/13/19 21:54 Dose: Not Given Adenosine (Adenocard) Confirm Administered Dose 6 mg .ROUTE .STK-MED ONE Stop: 12/13/19 19:34 Last Admin: 12/13/19 21:54 Dose: Not Given Adenosine (Adenocard) Confirm Administered Dose 12 mg .ROUTE .STK-MED ONE Stop: 12/13/19 19:34 Last Admin: 12/13/19 21:55 Dose: Not Given Adenosine (Adenocard) Confirm Administered Dose 12 mg .ROUTE .STK-MED ONE Stop: 12/18/19 23:02 Last Admin: 12/18/19 23:50 Dose: Not Given Adenosine (Adenocard) Confirm Administered Dose 24 mg .ROUTE .STK-MED ONE Stop: 12/19/19 02:43 Last Admin: 12/19/19 02:46 Dose: Not Given Adenosine (Adenocard) 12 mg IVPUSH NOW ONE Stop: 12/19/19 02:31 Last Admin: 12/19/19 02:30 Dose: 12 mg Adenosine (Adenocard) 12 mg IVPUSH NOW ONE Stop: 12/19/19 11:39 Last Admin: 12/19/19 11:47 Dose: 12 mg Adenosine (Adenocard) Confirm Administered Dose 12 mg .ROUTE .STK-MED ONE Stop: 12/19/19 23:01 Last Admin: 12/19/19 23:05 Dose: Not Given Adenosine (Adenocard) 12 mg IVPUSH NOW ONE Stop: 12/19/19 23:03 Last Admin: 12/19/19 23:06 Dose: 12 mg Adenosine (Adenocard) Confirm Administered Dose 12 mg .ROUTE .STK-MED ONE Stop: 12/20/19 01:33 Last Admin: 12/20/19 02:21 Dose: Not Given Adenosine (Adenocard) Confirm Administered Dose 12 mg .ROUTE .STK-MED ONE Stop: 12/20/19 01:37 Last Admin: 12/20/19 02:22 Dose: Not Given Albuterol (Proventil Hfa) 0 gm INH Q4H PRN PRN Reason: SOB/Wheezing Aspirin (Aspirin) 81 mg PO DAILY [facility] Azithromycin (Zithromax) 500 mg PO DAILY [facility] Last Admin: 12/11/19 13:55 Dose: Not Given Calcium Chloride (Calcium Chloride 10%) 1 gm IV .STK-MED ONE Stop: 12/20/19 01:58 Calcium Gluconate (Calcium Gluconate) 1 gm IVPUSH ONETIME ONE Stop: 12/19/19 12:20 Last Admin: 12/19/19 12:37 Dose: 1 gm Clopidogrel Bisulfate (Plavix) 75 mg PO DAILY [facility] Diltiazem HCl (Cardizem) Confirm Administered Dose 100 mg .ROUTE .[facility] ONE Stop: 12/20/19 01:47 Last Admin: 12/20/19 02:22 Dose: Not Given Diltiazem HCl (Cardizem) Confirm Administered Dose 50 mg .ROUTE .[facility] ONE Stop: 12/20/19 01:50 Last Admin: 12/20/19 02:23 Dose: Not Given Diltiazem HCl (Cardizem) Confirm Administered Dose 50 mg .ROUTE .[facility] ONE Stop: 12/20/19 02:02 Last Admin: 12/20/19 02:24 Dose: Not Given Enoxaparin Sodium (Lovenox) 40 mg SUBCUT DAILY [facility] Last Admin: 12/19/19 08:02 Dose: 40 mg Enoxaparin Sodium (Lovenox) 30 mg SUBCUT DAILY [facility] Last Admin: 12/20/19 08:20 Dose: 30 mg Etomidate (Amidate) 40 mg IVPUSH .STK-MED ONE Stop: 12/11/19 15:01 Folic Acid (Folic Acid) 1 mg PO DAILY [facility] Furosemide (Lasix) 40 mg IVPUSH NOW ONE Stop: 12/14/19 09:47 Last Admin: 12/14/19 10:18 Dose: 40 mg Furosemide (Lasix) 40 mg IVPUSH DAILY [facility] Last Admin: 12/17/19 21:04 Dose: 40 mg Furosemide (Lasix) 40 mg IVPUSH BID [facility] Last Admin: 12/19/19 08:02 Dose: 40 mg Furosemide (Lasix) 100 mg IVPUSH Q6H [facility] Last Admin: 12/20/19 14:46 Dose: Not Given Hydroxychloroquine Sulfate (Plaquenil) 400 mg NGTUBE ONETIME ONE Stop: 12/11/19 18:16 Last Admin: 12/11/19 18:37 Dose: Not Given Hydroxychloroquine Sulfate (Plaquenil) 200 mg PO DAILY [facility] Hydroxychloroquine Sulfate (Plaquenil) 200 mg NGTUBE DAILY [facility] Sodium Chloride (Normal Saline) 1,000 mls @ 75 mls/hr IV ASDIRECTED [facility] Last Admin: 12/12/19 04:48 Dose: 75 mls/hr Piperacillin Sod/Tazobactam (Sod 4.5 gm/ Sodium Chloride) 100 mls @ 200 mls/hr IV ONETIME ONE Stop: 12/11/19 13:29 Last Admin: 12/11/19 13:55 Dose: Not Given Piperacillin Sod/Tazobactam (Sod 4.5 gm/ Sodium Chloride) 100 mls @ 25 mls/hr IV Q8H [facility] Levofloxacin/Dextrose 750 mg/ (Premix) 150 mls @ 100 mls/hr IV Q24H [facility] Piperacillin Sod/Tazobactam (Sod 4.5 gm/ Sodium Chloride) 100 mls @ 200 mls/hr IV ONETIME ONE Stop: 12/11/19 14:29 Last Admin: 12/11/19 16:20 Dose: 200 mls/hr Piperacillin Sod/Tazobactam (Sod 4.5 gm/ Sodium Chloride) 100 mls @ 25 mls/hr IV Q8H [facility] Last Admin: 12/15/19 09:17 Dose: 25 mls/hr Fentanyl 2,500 mcg/ Sodium (Chloride) 250 mls @ 9.92 mls/hr IV TITRATE [facility]; Protocol Stop: 12/14/19 23:00 Last Titration: 12/14/19 20:41 Dose: 3.02 mcg/kg/hr, 30 mls/hr Midazolam HCl 50 mg/ Sodium (Chloride) 50 mls @ 1 mls/hr IV TITRATE [facility]; Protocol Stop: 12/11/19 23:00 Last Titration: 12/11/19 16:30 Dose: 15 mg/hr, 15 mls/hr Vecuronium [place] 10 mg/ (Sodium Chloride) 100 mls @ 59.54 mls/hr IV TITRATE [facility]; Protocol Last Admin: 12/12/19 03:28 Dose: 0.5 mcg/kg/min, 30 mls/hr Midazolam HCl 100 mg/ Sodium (Chloride) 100 mls @ 1 mls/hr IV ASDIRECTED [facility] Last Admin: 12/20/19 06:43 Dose: 10 mls/hr Vecuronium [place] 10 mg/ (Sodium Chloride) 100 mls @ 29.39 mls/hr IV TITRATE [facility]; Protocol Stop: 12/12/19 17:00 Last Admin: 12/12/19 12:58 Dose: 0.5 mcg/kg/min, 29.39 mls/hr Lactated Ringer's (Ringers, Lactated) 1,000 mls @ 75 mls/hr IV ASDIRECTED [facility] Last Infusion: 12/12/19 14:00 Dose: 125 mls/hr Sodium Chloride (Normal Saline) 500 mls @ 10 mls/hr IV ASDIRECTED [facility] Last Admin: 12/12/19 12:10 Dose: 10 mls/hr Lactated Ringer's (Ringers, Lactated) 1,000 mls @ 125 mls/hr IV ASDIRECTED [facility] Last Admin: 12/14/19 06:37 Dose: 125 mls/hr Norepinephrine Bitartrate 4 mg (/ Dextrose/Water) 250 mls @ 7.5 mls/hr IV TITRATE [facility]; Protocol Last Titration: 12/16/19 19:40 Dose: 0 mcg/min, 0 mls/hr Propofol (Diprivan 100 Ml) 100 mls @ 2.998 mls/hr IV TITRATE [facility]; Protocol Stop: 12/19/19 12:00 Last Admin: 12/19/19 06:19 Dose: 15 mcg/kg/min, 8.993 mls/hr Dextrose/Water (Dextrose 5% In Water) Confirm Administered Dose 250 mls @ as directed .ROUTE .STK-MED ONE Stop: 12/13/19 20:41 Last Admin: 12/13/19 21:55 Dose: Not Given Fentanyl 2,500 mcg/ Sodium (Chloride) 250 mls @ 9.92 mls/hr IV TITRATE [facility]; Protocol Last Admin: 12/19/19 23:29 Dose: 1.51 mcg/kg/hr, 15 mls/hr Sodium Phosphate 30 mmole/ (Sodium Chloride) 260 mls @ 130 mls/hr IV Q2H [facility] Stop: 12/14/19 15:59 Last Admin: 12/14/19 14:40 Dose: 130 mls/hr Lactated Ringer's (Ringers, Lactated) 1,000 mls @ 50 mls/hr IV ASDIRECTED [facility] Last Admin: 12/15/19 09:26 Dose: 50 mls/hr Sodium Chloride (Normal Saline) Confirm Administered Dose 250 mls @ as directed .ROUTE .STK-MED ONE Stop: 12/15/19 01:57 Last Admin: 12/15/19 03:12 Dose: Not Given Sodium Phosphate 15 mmole/ (Sodium Chloride) 55 mls @ 55 mls/hr IV ONETIME ONE Stop: 12/19/19 11:59 Last Admin: 12/19/19 11:31 Dose: 55 mls/hr Vecuronium [place] 10 mg/ (Sodium Chloride) 100 mls @ 33.54 mls/hr IV TITRATE [facility]; Protocol Last Admin: 12/20/19 09:43 Dose: 0.29 mcg/kg/min, 20 mls/hr Vancomycin HCl 1 gm/Vancomycin HCl 500 mg/ Sodium Chloride 250 mls @ 125 mls/ hr IV Q24H [facility] Last Admin: 12/20/19 12:57 Dose: Not Given Piperacillin Sod/Tazobactam (Sod 4.5 gm/ Sodium Chloride) 100 mls @ 200 mls/hr IV ONETIME ONE Stop: 12/19/19 13:29 Last Admin: 12/19/19 12:08 Dose: 200 mls/hr Levofloxacin/Dextrose 750 mg/ (Premix) 150 mls @ 100 mls/hr IV Q48H [facility] Last Admin: 12/19/19 11:52 Dose: 100 mls/hr Piperacillin Sod/Tazobactam (Sod 4.5 gm/ Sodium Chloride) 100 mls @ 25 mls/hr IV Q8H [facility] Last Admin: 12/20/19 12:58 Dose: Not Given Norepinephrine Bitartrate 16 (mg/ Dextrose/Water) 250 mls @ 1.87 mls/hr IV TITRATE [facility] Last Infusion: 12/19/19 19:47 Dose: 0 mcg/min, 0 mls/hr Amiodarone HCl/Dextrose (Nexterone In Dextrose 150 Mg/100 Ml) Confirm Administered Dose 100 mls @ as directed IV .STK-MED ONE Stop: 12/20/19 01:31 Last Admin: 12/20/19 02:20 Dose: Not Given Amiodarone HCl/Dextrose (Nexterone In Dextrose 360 Mg/200 Ml) Confirm Administered Dose 360 mg in 200 mls @ as directed .ROUTE .[employer] ONE Stop: 12/20/19 01:31 Last Admin: 12/20/19 02:20 Dose: Not Given Sodium Chloride (Normal Saline) Confirm Administered Dose 100 mls @ as directed .ROUTE .[employer] ONE Stop: 12/20/19 01:48 Last Admin: 12/20/19 02:22 Dose: Not Given Dopamine HCl/Dextrose (Dopamine In D5w 400 Mg/250 Ml) Confirm Administered Dose 400 mg in 250 mls @ as directed .ROUTE .[employer] ONE Stop: 12/20/19 01:57 Last Admin: 12/20/19 02:24 Dose: Not Given Phenylephrine HCl 10 mg/ (Sodium Chloride) 100 mls @ 60 mls/hr IV TITRATE [facility]; Protocol Amiodarone HCl/Dextrose (Nexterone In Dextrose 360 Mg/200 Ml) 360 mg in 200 mls @ 33.333 mls/hr IV ASDIRECTED [facility]; Protocol Last Infusion: 12/20/19 07:54 Dose: 16.7 mls/hr Diltiazem HCl 100 mg/ Sodium (Chloride) 100 mls @ 15 mls/hr IV TITRATE [facility]; Protocol Last Titration: 12/20/19 06:23 Dose: 10 mg/hr, 10 mls/hr Dopamine HCl/Dextrose (Dopamine In D5w 400 Mg/250 Ml) 400 mg in 250 mls @ 8.385 mls/hr IV TITRATE [facility]; Protocol Last Titration: 12/20/19 03:21 Dose: 0 mcg/kg/min, 0 mls/hr Phenylephrine HCl 25 mg/ (Sodium Chloride) 250 mls @ 60 mls/hr IV TITRATE [facility]; Protocol Last Admin: 12/20/19 08:19 Dose: 180 mcg/min, 108 mls/hr Metoprolol Tartrate (Lopressor) Confirm Administered Dose 15 mg .ROUTE .[employer] ONE Stop: 12/19/19 02:43 Last Admin: 12/19/19 02:46 Dose: Not Given Metoprolol Tartrate (Lopressor) 12.5 mg PO Q12H [facility] Last Admin: 12/19/19 02:58 Dose: 12.5 mg Metoprolol Tartrate (Lopressor) 5 mg IVPUSH Q5M PRN PRN Reason: TACHYCARDIA Last Admin: 12/19/19 23:30 Dose: 5 mg Metoprolol Tartrate (Lopressor) 12.5 mg PO ONETIME ONE Stop: 12/19/19 10:16 Last Admin: 12/19/19 11:23 Dose: 12.5 mg Metoprolol Tartrate (Lopressor) 25 mg PO Q12H [facility] Metoprolol Tartrate (Lopressor) 25 mg PO Q8H [facility] Last Admin: 12/20/19 12:58 Dose: Not Given Metoprolol Tartrate (Lopressor) Confirm Administered Dose 25 mg .ROUTE .STK-MED ONE Stop: 12/20/19 01:52 Last Admin: 12/20/19 02:23 Dose: Not Given Midazolam HCl (Versed 1 Mg/Ml) 10 mg IVPUSH ONETIME ONE Stop: 12/11/19 16:35 Last Admin: 12/11/19 18:36 Dose: Not Given Midazolam HCl (Versed 1 Mg/Ml) 5 mg IVPUSH ONETIME ONE Stop: 12/11/19 16:37 Last Admin: 12/11/19 18:36 Dose: Not Given Midazolam HCl (Versed 1 Mg/Ml) 10 mg .ROUTE .STK-MED ONE Stop: 12/11/19 15:01 Hydroxychloroquine 25mg/Ml Oral Suspension 0 each PO Q12H [facility] Stop: 12/13/19 06:01 Last Admin: 12/13/19 05:39 Dose: 16 each Non-Formulary Medication (Nf Drug) 0 each PO DAILY@0600 [facility] Stop: 12/17/19 06:01 Last Admin: 12/17/19 05:28 Dose: 16 each Pantoprazole Sodium (Protonix) 40 mg PO DAILY [facility] Pantoprazole Sodium (Protonix Iv) 40 mg IVPUSH DAILY [facility] Last Admin: 12/20/19 08:16 Dose: 40 mg Sodium Chloride (Saline Flush) 10 ml FLUSH ASDIRECTED PRN PRN Reason: Keep Vein Open Last Admin: 12/11/19 10:35 Dose: 10 ml Succinylcholine Chloride (Quelicin) 200 mg .ROUTE .STK-MED ONE Stop: 12/11/19 15:01 Vancomycin HCl (Pharmacy To Dose - Vancomycin) 1 dose .XX ASDIRECTED PRN PRN Reason: RX TO DOSE VANCO Comments:: He was examined prior to expiring. - Exam Quality Assessment: Reports: Central Line/PICC, Urine Catheter General: Reports: Sedated HEENT: Reports: Pupils Equal Lungs: Reports: Crackles Cardiovascular: Reports: Regular Rate, Regular Rhythm GI/Abdominal Exam: Soft Extremities: Pedal Edema, Slow Capillary Refill
== END 2019-12-20 13:20 | disposition expired | DRG 870 ==
LOC: JD.ED 09:43 → JD.MS 11:49 → JD.ICU 13:34
PROVIDERS: ADMIT Pediatrics; ATTEND Pediatrics
PROC: 8E0ZXY6 Isolation (ICD-10-PCS; principal; 2019-12-11)
PROC: 0BH17EZ Insertion of Endotracheal Airway into Trachea, Via Natural or Artificial Opening (ICD-10-PCS; 2019-12-11)
PROC: 3E033XZ Introduction of Vasopressor into Peripheral Vein, Percutaneous Approach (ICD-10-PCS; 2019-12-11)
PROC: 5A2204Z Restoration of Cardiac Rhythm, Single (ICD-10-PCS; 2019-12-11)
PROC: 02HV33Z Insertion of Infusion Device into Superior Vena Cava, Percutaneous Approach (ICD-10-PCS; 2019-12-11)
PROC: 5A1955Z Respiratory Ventilation, Greater than 96 Consecutive Hours (ICD-10-PCS; 2019-12-12)
PROC: 4A133B1 Monitoring of Arterial Pressure, Peripheral, Percutaneous Approach (ICD-10-PCS; 2019-12-12)
PROC: 4A133J1 Monitoring of Arterial Pulse, Peripheral, Percutaneous Approach (ICD-10-PCS; 2019-12-12)
PROC: 0DH67UZ Insertion of Feeding Device into Stomach, Via Natural or Artificial Opening (ICD-10-PCS; 2019-12-12)
DX: A41.89 Other specified sepsis (principal); B97.29 Other coronavirus as the cause of diseases classified elsewhere; U07.1 COVID-19; J12.89 Other viral pneumonia; I25.10 Atherosclerotic heart disease of native coronary artery without angina pectoris; J96.01 Acute respiratory failure with hypoxia; Z95.2 Presence of prosthetic heart valve; J96.02 Acute respiratory failure with hypercapnia; R65.21 Severe sepsis with septic shock; I40.0 Infective myocarditis; I47.1 Supraventricular tachycardia; I25.810 Atherosclerosis of coronary artery bypass graft(s) without angina pectoris; N17.9 Acute kidney failure, unspecified; E87.2 Acidosis; R57.0 Cardiogenic shock; J44.9 Chronic obstructive pulmonary disease, unspecified; E66.9 Obesity, unspecified; I10 Essential (primary) hypertension; E78.5 Hyperlipidemia, unspecified; I73.9 Peripheral vascular disease, unspecified; M19.90 Unspecified osteoarthritis, unspecified site; E83.39 Other disorders of phosphorus metabolism; H54.7 Unspecified visual loss; E78.00 Pure hypercholesterolemia, unspecified; K21.9 Gastro-esophageal reflux disease without esophagitis; R19.7 Diarrhea, unspecified; Z95.1 Presence of aortocoronary bypass graft; Z95.5 Presence of coronary angioplasty implant and graft; Z79.82 Long term (current) use of aspirin; Z79.899 Other long term (current) drug therapy; Z98.890 Other specified postprocedural states; Z88.8 Allergy status to other drugs, medicaments and biological substances; I25.2 Old myocardial infarction; Z95.3 Presence of xenogenic heart valve; Z87.891 Personal history of nicotine dependence; Z99.81 Dependence on supplemental oxygen; Z68.36 Body mass index [BMI] 36.0-36.9, adult; Z79.02 Long term (current) use of antithrombotics/antiplatelets
CPT/HCPCS: 36415; 71045; 80053; 81001; 82728; 83605; 83615; 85025; 86140; 87040; 93005; 99285; A9270; 36600; 51702; 80048; 82248; 82550; 82570; 82803; 82962; 82977; 83735; 83880; 84100; 84145; 84300; 84478; 84484; 85379; 85610; 87070; 87077; 87106; 87186; 87205; 87641; 93010; 93308; 94002; 94003; 99284; C9113; J0153; J0282; J0330; J0610; J1265; J1650; J1940; J1956; J2250; J2370; J2543; J2704; J3010; J3370; J3490; J7030; J7040; J7050; J7060; J7120